=== PATIENT | male | born 1950 | race Caucasian/White ===

== ENCOUNTER → 2018-05-13 14:13 | Outpatient (CLI) | payer MEDICARE, OTHER, SELFPAY ==
[2018-05-13 16:02] LABS: AST(SGOT) 13 U/L (15-37); Alanine Aminotransfer ALT/SGPT 24 U/L (16-61); Albumin, Serum 3.8 g/dL (3.2-5.0); Alkaline Phosphatase 98 U/L (45-117); Bilirubin, Direct 0.17 mg/dL (0.00-0.30); Cholesterol 102 mg/dL (200); Globulin 3.5 g/dL (2.2-4.2); High Density Lipoprotein 34 mg/dL; Protein, Total 7.3 g/dL (6.4-8.2); Triglycerides 144 mg/dL; Very Low Density Lipoprotein 29 mg/dL (5-40)
== END ==
PROVIDERS: Nurse Practitioner Family; Family Provider Family Medicine; PCP Family Medicine; Visit Provider Internal Medicine Cardiovascular Disease
DX: R74.8 Abnormal levels of other serum enzymes (principal); E78.5 Hyperlipidemia, unspecified
CPT/HCPCS: 36415; 80061; 80076

== ENCOUNTER → 2018-09-24 14:01 | Outpatient (CLI) | payer MEDICARE, OTHER, SELFPAY ==
[2018-05-11 15:31] VITALS: BMI 42.3
[2018-09-24 16:14] LABS: Anion Gap 10 (5-15); BUN 38 mg/dL (7-18); BUN/Creat Ratio 17.8 RATIO (10-20); Calcium,Total 8.7 mg/dL (8.5-10.1); Chloride 109 mmol/L (98-107); Creatinine, Serum 2.13 mg/dL (0.70-1.30); EST Glomerular Filtration Rate 33 mL/min (>60); Est Glom Filt Rate - Afr Amer 40 mL/min (>60); Glucose 102 mg/dL (74-106); Potassium 4.4 mmol/L (3.5-5.1); Sodium Level 143 mmol/L (136-145)
== END ==
PROVIDERS: Family Provider Family Medicine; PCP Family Medicine; Visit Provider Family Medicine
DX: I10 Essential (primary) hypertension (principal)
CPT/HCPCS: 36415; 80048

== ENCOUNTER → 2019-03-25 | Outpatient (CLI) | payer MEDICARE, OTHER, SELFPAY ==
[2019-03-25 15:54] LABS: ALB/GLOB Ratio 1.2 RATIO (0.9-2.4); AST(SGOT) 11 U/L (15-37); Alanine Aminotransfer ALT/SGPT 19 U/L (16-61); Alkaline Phosphatase 77 U/L (45-117); Anion Gap 5 (5-15); BUN 33 mg/dL (7-18); BUN/Creat Ratio 17.3 RATIO (10-20); Calcium,Total 8.7 mg/dL (8.5-10.1); Chloride 109 mmol/L (98-107); Cholesterol 124 mg/dL (200); Creatinine, Serum 1.91 mg/dL (0.70-1.30); EST Glomerular Filtration Rate 37 mL/min (>60); Est Glom Filt Rate - Afr Amer 45 mL/min (>60); Globulin 3.2 g/dL (2.2-4.2); Glucose 92 mg/dL (74-106); High Density Lipoprotein 33 mg/dL; Potassium 4.5 mmol/L (3.5-5.1); Protein, Total 7.2 g/dL (6.4-8.2); Sodium Level 139 mmol/L (136-145); Triglycerides 239 mg/dL; Very Low Density Lipoprotein 48 mg/dL (5-40)
== END | disposition home or self-care (01) ==
LOC: MFPLAB 13:46
PROVIDERS: Family Provider Family Medicine; PCP Family Medicine; Referring Provider Family Medicine; Visit Provider Family Medicine
DX: I10 Essential (primary) hypertension (principal)
CPT/HCPCS: 36415; 80053; 80061

== ENCOUNTER → 2020-03-21 13:53 | Outpatient (CLI) | payer MEDICARE, OTHER, SELFPAY ==
[2019-07-01 12:49] VITALS: BMI 40.8
[2020-03-21 16:26] LABS: Anion Gap 8 (5-15); BUN 25 mg/dL (7-18); BUN/Creat Ratio 12.4 RATIO (10-20); Calcium,Total 8.9 mg/dL (8.5-10.1); Chloride 108 mmol/L (98-107); Cholesterol 128 mg/dL (200); Creatinine, Serum 2.02 mg/dL (0.70-1.30); EST Glomerular Filtration Rate 35 mL/min (>60); Est Glom Filt Rate - Afr Amer 42 mL/min (>60); Glucose 97 mg/dL (74-106); High Density Lipoprotein 31 mg/dL; Potassium 4.5 mmol/L (3.5-5.1); Sodium Level 140 mmol/L (136-145); Triglycerides 231 mg/dL; Very Low Density Lipoprotein 46 mg/dL (5-40)
--- OUTSIDE RECORDS SUMMARY | 2020-07-22 15:13 | XMS RPT_ITS | CCD ---
:1950 External Reference #:[id number] Author Organization [facility] Care Team Providers Name Role Phone Inocencia Arevalo Unavailable Unavailable Mary RN, A Unavailable Unavailable DeFinis, Y Unavailable Unavailable Mary RN, A Unavailable Unavailable Mary RN, A Unavailable Unavailable Medications Medication Name Sig Date Prescriber Location acyclovir ZOVIRAX 800 MG TABS 04-29-2017 - [facility] One tablet by mouth 05-06-2017 Group (4 [id number]) three times daily as needed ACYCLOVIR [id number] Jenna Hernandez RN ARTIFICIAL TEAR ARTIFICIAL TEARS 04-29-2017 [facility] SOLUTION 0.1-0.3 % SOLN 1 drop Group ([id number]) right eye three times a day ARTIFICIAL TEAR SOLUTION [id number] Jenna A Mary RN ARTIFICIAL TEARS 0.1-0.3 % SOLN 1 drop right 04-29-2017 [facility] (08550) eye three times a day ARTIFICIAL TEAR SOLUTION [id number] Jenna A Mary RN ARTIFICIAL TEARS 0.1-0.3 % SOLN 1 drop right 04-29-2017 [facility] (09937) eye three times a day ARTIFICIAL TEAR SOLUTION [id number] Jenna A Mary RN ARTIFICIAL TEAR SOLUTION ARTIFICIAL TEARS 0.1-0.3 % 04-29-2017 [facility] SOLN 1 drop right eye (96663 ) three times a day ARTIFICIAL TEAR SOLUTION [id number] Jenna A Mary RN ARTIFICIAL TEARS 0.1-0.3 % SOLN 1 drop right 04-29-2017 [facility] (54048) eye three times a day ARTIFICIAL TEAR SOLUTION [id number] Jennaanai Hernandez RN aspirin ASPIRIN EC 81 MG TBEC One 04-29-2017 [facility] tablet by mouth daily [facility] ([id number]) ASPIRIN [id number] Jenna Hernandez RN atorvastatin LIPITOR 10 MG TABS One 05-06-2017 [facility] tablet by mouth daily MD [facility] (91008) ATORVASTATIN CALCIUM [id number] Refugio Segovia MD methylprednisoLONE MEDROL 4 MG TBPK Take as 04-29-2017 [facility] directed Group (4 4691) METHYLPREDNISOLONE [id number] Jenna Hernandez RN MEDROL 4 MG TBPK Take as directed 04-29-2017 - 05-06-2017 [facility] (56319) METHYLPREDNISOLONE [id number] Refugio Segovia MD MEDROL 4 MG TBPK Take as directed 04-29-2017 [facility] METHYLPREDNISOLONE (4 4691) [id number] Jenna Hernandez RN MEDROL 4 MG TBPK Take as directed 04-29-2017 - 05-06-2017 [facility] (01689) METHYLPREDNISOLONE [id number] Refugio Segovia MD MEDROL 4 MG TBPK Take as directed 04-29-2017 - 05-06-2017 [facility] METHYLPREDNISOLONE (4 4691) [id number] Jenna Hernandez RN metoprolol METOPROLOL TARTRATE 50 MG 04-29-2017 [facility] TABS One tablet by mouth (44 691) twice daily METOPROLOL TARTRATE [id number] Jenna Hernandez RN MULTIPLE MULTIVITAMIN ADULT TABS 04-29-[address] [facility] VITAMINS-MINERALS One tablet by mouth twice (54668) daily MULTIPLE VITAMINS-MINERALS [id number] Jenna Hernandez RN MULTIVITAMIN ADULT TABS One tablet by mouth 04-29-2017 [facility] (03416) twice daily MULTIPLE VITAMINS-MINERALS [id number] Jenna Hernandez RN MULTIVITAMIN ADULT TABS One tablet by mouth 04-29-2017 [facility] (12236) twice daily MULTIPLE VITAMINS-MINERALS [id number] Jenna Hernandez RN MULTIPLE VITAMINS-MINERALS MULTIVITAMIN ADULT TABS One 04-29-2017 [facility] tablet by mouth twice daily Group (26204) MULTIPLE VITAMINS-MINERALS [id number] Jenna Hernandez RN MULTIVITAMIN ADULT TABS One tablet by mouth 04-29-2017 [facility] (81935) twice daily MULTIPLE VITAMINS-MINERALS [id number] Jenna Hernandez RN naproxen ALEVE 220 MG TABS 1 tablet by mouth 04-29-2017 [facility] (72978) every 12 hours PRN NAPROXEN SODIUM [id number] Jenna Hernandez RN Problems Active Problems Category Problem Name Status Date Location Chronic kidney disease Chronic renal failure Active 7 - [facility] (50720) Essential hypertension Hypertensive disorder Active [facility] (88699) Past or Other Problems Category Problem Name Status Date Location 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 - [facility] (72057) Other screening for Electrocardiogram abnormal Completed 017 - [facility] suspected conditions [facility] ( 06019) (not mental disorders or infectious disease) Unclassified High troponin I level Completed 04-29-2017 - [facility] (75282) Results Result Name Value Range Unit Interpretation Flag Date Location replaced document: [facility] ecg observati ons on 2017-05-06 EKG QRS axis -17 deg 05-06-2017 - [facility] 05-06-2017 [facility] (12538) electrocardiogram Sinus Rhythm Invalid 7 - [facility] -First degree Interpretation 2016 [facility] A-V block Code (15317) -With rate variation Linda = 236 cv = 13.BORDERLINE RHYTHM GE use only - for 414 ms Invalid 05-06-2017 - [facility] import when Interpretation [facility] terms are not Code (23897 ) otherwise specified Interpretation Sinus Rhythm 05-06-2017 - [facility] -First degree 05-06-2017 [facility] A-V block (68852) -With rate variation Linda = 236 cv = 13.BORDERLINE RHYTHM P Derry 22 deg 05-06-2017 - [facility] 05-06-2017 [facility] (22175) P wave axis, 22 deg Invalid 05-06-2017 - [facility] electrocardiogram Interpretation 017 [facility] Code (31779) AK Interval 236 ms 05-06-2017 - [facility] 05-06-2017 [facility] (73396) AK interval, 236 ms Invalid 05-06-2017 - [facility] electrocardiogram Interpretation 017 [facility] Code (60090) Pulse (Heart Rate) 73 BPM /min Invalid 05-06-2017 - [facility] Interpretation 05-06-2017 [facility] Code (49448) QRS axis, -17 deg Invalid 05-06-2017 - [facility] electrocardiogram Interpretation 017 [facility] Code (59055) QRS Duration 96 ms 05-06-2017 - [facility] 05-06-2017 [facility] (92152) QRS duration, 96 ms Invalid 05-06-2017 - [place] [facility] electro[facility]ogram Interpretation 017 [facility] Code (16419) QT Interval new path ms 05-06-2017 - [facility] 05-06-2017 [facility] (30872) QT interval, new path ms Invalid 05-06-2017 - [facility]ogram Interpretation 017 [facility] Code (65586) QTc Caprenter 414 ms 05-06-2017 - [facility] 05-06-2017 [facility] (48814) T Derry 18 deg 05-06-2017 - [facility] 05-06-2017 [facility] (93365) T wave axis, 18 deg Invalid 05-06-2017 - [facility] electrocardiogram Interpretation 017 [facility] Code (18297) office visit on 04-11-02 Documentation of Done Invalid Interpretation 05-06-2017 - [facility] current medications Code 05-06-2017 Group (11385) (procedure) Fall risk assessment No Invalid Interpretat ion 05-06-2017 - [facility] Code 05-06-2017 Group (44 691) Protein mass conc Done 05-06-2017 - [facility] 05-06-2017 Group (44 691) clinical lists update: preload on 2017-04-29 Left ventricular 65 % Invalid 04-29-2017 - [facility] Ejection fraction Interpretation Code Group (30594) Tobacco smoking Former smoker 04-29-2017 - [facility] status NHIS 04-29-2017 Group ( 18577) Tobacco use [facility] Former smoker Invalid 7 - [facility] Interpretation Code 04-29-2017 Group (39166) Vital Signs Vital Sign Description Value / Unit Date Location The following section is limited to 5 en tries per type and includes entries from the following time range: 20170506 - 2. BMI (Body Mass Index) 40.57 kg/m2 05-06-2017 - 05-06-2017 [facility] (71753) BP Diastolic 60 mm[Hg] 05-06-2017 - 05-06-2017 [facility] (69413) BP Systolic 122 mm[Hg] 05-06-2017 - 05-06-2017 [facility] (42134) Heart rate 73 /min 05-06-2017 - 05-06-2017 [facility] (80714) Height 167.64 cm 05-06-2017 - 05-06-2017 [facility] (77167) Pulse (Heart Rate) 68 /min 05-06-2017 - 05-06-2017 [facility] (52880) Respiratory Rate 20 /min 05-06-2017 - 05-06-2017 [facility] (09580) Weight 114.04 kg 05-06-2017 - 05-06-2017 [facility] (77605) Procedures Procedure Name Date Provider Location Electrocardiogram, 05-06-2017 - [facility] complete 05-06-2017 (08577) Follow Up Appt Other 05-06-2017 - [facility] 05-06-2017 (06071) Plan of Treatment Plan Description Date Location Appointment Appointment 05-06-2018 - [facility] 05-06-2018 (25827) Appointment Appointment 05-06-2017 - [facility] 05-06-2017 (91293) EKG (In office) EKG (In office) 05-06-2017 - [facility] 05-06-2017 (05336) Follow Up Appt Other Follow Up Appt Other 05-06-2017 - [facility] 05-06-2017 (34515) Nuclear stress test Nuclear stress test 05-06-2017 - [facility] -Lexiscan -Lexiscan 05-06-2017 (80806) Additional Source Comments FOR RECORDS PERTAINING TO PATIENTS WHO ARE OR HAVE BEEN ENROLLED IN A CHEMICAL DEPENDENCY/SUBSTANCE ABUSE PROGRAM, SOME INFORMATION MAY BE OMITTED. This clinical summary was aggregated from multiple sources. Caution should be exercised in using it in the provision of clinical care. This summary normalizes information from multiple sources, and as a consequence, information in this document may materially changethe coding, format and clinical context of patient data. In addition, data may be omittedin some cases. CLINICAL DECISIONS SHOULD BE BASED ON THE PRIMARY CLINICAL RECORDS. [facility] provides no warranty or guarantee of the accuracy or completeness of information in this document.
== END ==
PROVIDERS: PCP Family Medicine; Visit Provider Family Medicine
DX: I10 Essential (primary) hypertension (principal)
CPT/HCPCS: 36415; 80048; 80061

== ENCOUNTER → 2020-09-19 14:23 | Outpatient (CLI) | payer MEDICARE, OTHER, SELFPAY ==
[2019-07-01 12:49] VITALS: BMI 40.8
[2020-09-19 17:50] LABS: Absolute Lymphocyte Count 1.92 X10^3/uL (0.83-4.51); Absolute Neutrophil Count 5.6 X10^3/uL (2.0-7.7); Basophil# 0.04 X10^3/uL; Basophil% 0.5 % (0-1); Eosinophil# 0.18 X10^3/uL; Eosinophils% 2.1 % (0-5); Hematocrit 44.3 % (40-54); Hemoglobin 14.3 g/dL (13.0-16.5); Lymphocyte # 1.92 X10^3/ul (4.0); Lymphocyte % 22.6 % (19-41); Mean Corp Hgb Conc 32.3 g/dL (32-36); Mean Corpuscular Volume 102.3 fL (80-94); Mean Platelet Vol. 10.4 fl (6.2-12.0); Monocyte# 0.76 X10^3/uL; Monocyte% 8.9 % (0-10); NRBC Flagged by Analyzer 0 % (0-5); Neutrophil # 5.57 X10^3/uL (2.7-7.7); Neutrophil % 65.4 % (47-70); Platelet Count 216 K/mm3 (150-450); RBC Distribution Width CV 12.2 % (11.6-14.6); RBC Distribution Width SD 46.2 fl (35.1-43.9); Red Blood Count 4.33 M/mm3 (4.6-6.2); White Blood Count 8.5 K/mm3 (4.4-11.0)
[2020-09-19 18:41] LABS: ALB/GLOB Ratio 1.1 RATIO (0.9-2.4); AST(SGOT) 10 U/L (15-37); Alanine Aminotransfer ALT/SGPT 23 U/L (16-61); Albumin, Serum 3.9 g/dL (3.2-5.0); Alkaline Phosphatase 82 U/L (45-117); Anion Gap 5 (5-15); BUN 35 mg/dL (7-18); BUN/Creat Ratio 17.1 RATIO (10-20); Chloride 108 mmol/L (98-107); Cholesterol 121 mg/dL (200); Creatinine, Serum 2.05 mg/dL (0.70-1.30); EST Glomerular Filtration Rate 34 mL/min (>60); Est Glom Filt Rate - Afr Amer 41 mL/min (>60); Globulin 3.7 g/dL (2.2-4.2); Glucose 97 mg/dL (74-106); High Density Lipoprotein 30 mg/dL; Potassium 4.4 mmol/L (3.5-5.1); Protein, Total 7.6 g/dL (6.4-8.2); Sodium Level 140 mmol/L (136-145); Thyroid Stim Hormone (TSH) 1.07 uIU/mL (0.358-3.74); Triglycerides 311 mg/dL; Very Low Density Lipoprotein 62 mg/dL (5-40)
== END ==
PROVIDERS: PCP Family Medicine; Referring Provider Family Medicine; Visit Provider Family Medicine
DX: R53.83 Other fatigue (principal); R11.0 Nausea; I10 Essential (primary) hypertension
CPT/HCPCS: 36415; 80053; 80061; 84403; 84443; 85025

== ENCOUNTER → 2020-10-03 11:35 | Outpatient (CLI) | payer MEDICARE, OTHER, SELFPAY ==
[2019-07-01 12:49] VITALS: BMI 40.8
== END ==
PROVIDERS: PCP Family Medicine; Visit Provider Family Medicine
DX: R79.89 Other specified abnormal findings of blood chemistry (principal)
CPT/HCPCS: 36415; 84403

== ENCOUNTER → 2022-11-13 | Outpatient (CLI) | payer MEDICARE, OTHER, SELFPAY ==
--- NOTE | 2022-11-13 11:22 | RAD_ITS ---
STUDY: X-RAY - RIGHT SHOULDER REASON FOR EXAM: Male, 72 years old. Pain. TECHNIQUE: 4 view(s) of the shoulder. COMPARISON: None. FINDINGS: Osteopenia. Mild arthrosis of the glenohumeral joint. Mild arthrosis of the AC joint. Normal acromion. Normal humeral head and visualized proximal humerus. The soft tissue structures are unremarkable. Normal visualized pulmonary apex. RAD/Shoulder min 2 Views IMPRESSION: Osteopenia with mild arthrosis of the glenohumeral and acromioclavicular joints. No acute abnormality or erosive changes. Electronically Signed: Dino Gonzalez, at 13:25 EST ,
--- NOTE | 2022-11-13 11:22 | RAD_ITS ---
STUDY: X-RAY - LEFT SHOULDER REASON FOR EXAM: Male, 72 years old. Pain. TECHNIQUE: 4 view(s) of the shoulder. COMPARISON: None. FINDINGS: Osteopenia. Mild arthrosis of the glenohumeral joint. Mild arthrosis of the AC joint. Normal acromion. Normal humeral head and visualized proximal humerus. The soft tissue structures are unremarkable. Normal visualized pulmonary apex. RAD/Shoulder min 2 Views IMPRESSION: Osteopenia with mild arthrosis of the glenohumeral and acromioclavicular joints. No acute abnormality or erosive changes. Electronically Signed: Dino Gonzalez, at 13:25 EST ,
== END | disposition home or self-care (01) ==
LOC: MTRAD 11:20
PROVIDERS: PCP Family Medicine; Referring Provider Family Medicine; Visit Provider Family Medicine
DX: M25.511 Pain in right shoulder (principal); M25.512 Pain in left shoulder
CPT/HCPCS: 73030

== ENCOUNTER 2022-12-24 14:30 | Outpatient (RCR) | payer MEDICARE, OTHER, SELFPAY ==
--- NOTE | 2022-11-24 16:08 | HP.PTEVAL_ITS ---
Patient's Visit Information FABIAN WOODRUFF is a 72 year old M referred to Physical Therapy by Dr. Bari Francisco MD with a diagnosis of Bilateral Shoulder OA. Date of Evaluation: 11/24/22 Physical Therapist: Elham Romero DPT - Visit Plan Frequency: 2x /Week Duration: 4 Weeks Plan: Focus on posture and scapular s/s- under 90 degrees. HEP Given IE: Posture, Scapular Retractions, Corner Stretch, Bilateral ER with GTB - Subjective Patient reports shoulder pain for years- right is worse than the left. He reports that its getting worse and he can't sleep on them and they wake him up. He is right hand dominate. 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 Pain is located in the AC joint- No radiating pain. No N/T in the fingers. Worst: 7-8/10 Agg: reaching out to or pushing off on a chair. Eases: trying not to move it. Best: 0/10. Describes the pain as sharp and shooting. He has had x-rays which showed OA no MRI. He gave him some medication to help decrease the inflammation but did not do an injection and sent him to PT. He does not do any exercises for his shoulder. No neck pain, blurred vision or dizziness. Sleep: disturbed- side sleeper. He is more sedentary- his has RA so he does a lot of housework to help out. Hobby: jewelry- is hard to do and increases pain. PMHx: HTN Meds: 2 BP pills and a statin. - Objective Posture: FH, RS- can correct with tactile cues but does not maintain. Gait: decreased arm swing and trunk rotation. Palpation: not tender to touch but does have very tight musculature throughout his cervical spine and thoracic spine. ROM: Cervical Spine: WFL in all planes but reports tightness in all ROM, Shoulder: WFL in all planes but slow and painful arc with flexion and abduction bilateral, Elbow/Wrist/Hand: WFL. 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: 60 bilateral, Elbow: Left: 4+/5, Right: 4/5, Shoulder Isometric: left: 4+/5, Right: 4-/5 bilateral in a neutral position - Special Tests R Shoulder Drop Sign - IS Test: Positive R Shoulder Empty Can - SS: Positive R Shoulder Belly Press - SupScap: Positive R Shoulder Neer - Impingement: Positive R Shoulder Juan Juan M - Impingement: Positive L Shoulder Drop Sign - IS Test: Positive L Shoulder Empty Can - SS: Positive L Shoulder Belly Press - SupScap: Positive L Shoulder Neer - Impingement: Positive L Shoulder Juan Juan M - Impingement: Positive - Balance/Special Test Scores Quick DASH Score: 45.4525 - Goals Goal 1:: Patient will be I with HEP and progression Goal Time Frame: 4-6 Weeks Goal 2:: Patient will maintain proper posture t/o tx session to demo increased scap s/s Goal Time Frame: 4-6 Weeks Goal 3:: Patient will demo full AROM without pain Goal Time Frame: 4-6 Weeks Goal 4:: Patient will report 80% improvement Goal Time Frame: 4-6 Weeks - Rehabilitation Potential Physical Therapy Diagnosis: Patient presents with hypomobility- he has decreased ROM, UE and scapular s/s and muscular endurance leading to poor posture and increased discomfort with ADL's. Rehabilitation Potential: Good - Anticipated Interventions Patient/Client Instruction: Educate patient on: Benefits of Fitness Program Therapeutic Exercise to Include: Strength training, Endurance training, Coordination, Body mechanics, Postural training, Flexibilty training, Neuromotor development, Passive ROM, Active ROM, Dynamic Lumbar Stabilization, Scapular Strength/Stabilization For the Purpose of:: To improve muscle performance and motor function TENS: Yes Cryotherapy (ice pack, ice massage): Yes Thermo therapy (hot pack): Yes Ultrasound (thermal/non thermal): Yes Thank you for the opportunity to evaluate your patient. For Medicare and Medicare HMO plans, please review the plan of care and approve it. It will need to be FAXED BACK to us at [phone] for Medicare purposes. For Medicare only, by signing this I certify the plan of care. Please let me know if there are questions or concerns regarding this plan of care. Physician Signature: Date:
--- NOTE | 2022-12-24 14:44 | HP.PTDCSUM ---
It has been my pleasure to treat FABIAN WOODRUFF referred by Dr. Bari Francisco MD, with the diagnosis of Bilateral Shoulder OA for a total of 10 visit(s). Discharge Date: Please see the following information for a summary of their discharge status. Subjective: Patient reports that he has not seen any improvement in the shoulders- more soreness from exercises. Sleep is still disturbed. He used the sweeper and it made the right one really bad because he used it. He has not had any x-rays on his neck but in the last few days his right hand has been a little tingly. Right shoulder Pain Intensity (Out of 10): Unrated % Improvement: 0 Objective/Function: No significant changes since IE: Posture: FH, RS- can correct with tactile cues but does not maintain. Gait: decreased arm swing and trunk rotation. Palpation: not tender to touch but does have very tight musculature throughout his cervical spine and thoracic spine. ROM: Cervical Spine: WFL in all planes but reports tightness in all ROM, Shoulder: WFL in all planes but slow and painful arc with flexion and abduction bilateral, Elbow/Wrist/Hand: WFL. Strength: Consumer Services Advisor: 60 bilateral, Elbow: Left: 4+/5, Right: 4/5, Shoulder Isometric: left: 4+/5, Right: 4-/5 bilateral in a neutral position. - Special Tests. R Shoulder Drop Sign - IS Test: Positive. R Shoulder Empty Can - SS: Positive. R Shoulder Belly Press - SupScap: Positive. R Shoulder Neer - Impingement: Positive. R Shoulder Juan Juan M - Impingement: Positive. L Shoulder Drop Sign - IS Test: Positive. L Shoulder Empty Can - SS: Positive. L Shoulder Belly Press - SupScap: Positive. L Shoulder Neer - Impingement: Positive. L Shoulder Juan Juan M - Impingement: Positive Goal 1:: Patient will be I with HEP and progression Goal Progress: Goal Met Goal 2:: Patient will maintain proper posture t/o tx session to demo increased scap s/s Goal Progress: Not Progressing Goal 3:: Patient will demo full AROM without pain Goal Progress: Not Progressing Goal 4:: Patient will report 80% improvement Goal Progress: Not Progressing Plan: 12/24/22: Discharge- return to MD for further evaluation. Focus on posture and scapular s/s- under 90 degrees. If there are questions or concerns regarding this patient's physical therapy, please feel free to call me at [phone]. Thank you for the referral of this patient. Sincerely, Elham Romero, PURNIMAT Balance/Gait/Functional tests - Balance/Special Test Scores Quick DASH Score: 50.0000
== END 2022-12-24 14:58 | disposition home or self-care (01) ==
LOC: PT 14:30
PROVIDERS: PCP Family Medicine; Referring Provider Family Medicine; Visit Provider Family Medicine
DX: M19.011 Primary osteoarthritis, right shoulder (principal); M19.012 Primary osteoarthritis, left shoulder
CPT/HCPCS: 97035; 97110; 97162; 97164

== ENCOUNTER → 2023-02-04 | Outpatient (CLI) | payer MEDICARE, OTHER, SELFPAY ==
--- NOTE | 2023-02-04 12:45 | MRI_ITS ---
INDICATION: RT SHOULDER PAIN, LIMITED R.O.M, HX PREV SURGERY 30 YEARS AGO EXAMINATION: MRI - RIGHT MR Shoulder W/O Contrast TECHNIQUE: Multiplanar and multisequence MR images of the right shoulder without contrast. IV Contrast Dosage and Agent: None. COMPARISON: November 13, 2022 shoulder radiograph. FINDINGS: BONE: No fracture or abnormal bone marrow signal. ACROMIOCLAVICULAR JOINT: Mild acromioclavicular joint degenerative osseous proliferation with small joint effusion and capsular thickening. Inferior projecting osteophytes exert mild mass effect on the supraspinatus myotendinous junction. Coracoclavicular ligaments are intact. SUBACROMIAL-SUBDELTOID SPACE: Small bursal fluid. GLENOHUMERAL JOINT: Mild diffuse chondral thinning without full thickness loss.. No joint effusion. No rotator interval edema. ROTATOR CUFF: Mild distal supraspinatus articular surface fraying with mild increased fluid signal. Focal 1 mm medial posterior footplate infraspinatus tendon tear is suggested.. There is no cuff muscle atrophy. LABRUM: Anterior degenerative labral changes, with limited evaluation on non-arthrogram exam. BICEPS TENDON: The extra-articular biceps tendon is in the bicipital groove. The intra-articular biceps tendon is normal. MRI/Upper Ext Joint Only(Routine) IMPRESSION: Subacromial subdeltoid bursitis. Articular surface supraspinatus tendon fraying and suggestion of 1mm medial posterior footplate infraspinatus insertion tear. Acromioclavicular osteoarthritis with mass effect on the supraspinatus myotendinous junction. Electronically Signed: Hai Garcia MD at 7:53 EDT ,
== END | disposition home or self-care (01) ==
LOC: MRI 12:28
PROVIDERS: PCP Family Medicine; Referring Provider Family Medicine; Visit Provider Family Medicine
DX: M25.511 Pain in right shoulder (principal); M25.512 Pain in left shoulder
CPT/HCPCS: 73221

== ENCOUNTER → 2023-03-31 | Outpatient (CLI) | payer MEDICARE, OTHER, SELFPAY ==
--- NOTE | 2023-03-31 13:55 | EKG12_ITS ---
Test Reason : PRE-OP Blood Pressure : / mmHG Vent. Rate : 075 BPM Atrial Rate : 075 BPM P-R Int : 228 ms QRS Dur : 078 ms QT Int : 390 ms P-R-T Axes : 023 -22 043 degrees QTc Int : 435 ms Sinus rhythm with 1st degree A-V block Otherwise normal ECG Confirmed by ILIANA LEIVA, MICHAEL ([id number]), photography editor KENNY COBOS ([id number]) on 04/01/2023 1:09:56 PM Referred By: Carrillo Wilson Confirmed By:MICHAEL BARRIENTOS MD
== END | disposition home or self-care (01) ==
LOC: PSN 13:54
PROVIDERS: PCP Family Medicine; Referring Provider Student in an Organized Health Care Education/Training Program; Visit Provider Student in an Organized Health Care Education/Training Program
DX: Z01.811 Encounter for preprocedural respiratory examination (principal)
CPT/HCPCS: 93005

== ENCOUNTER → 2023-05-20 | Outpatient (CLI) | payer MEDICARE, OTHER, SELFPAY ==
[2023-05-20 12:24] LABS: Absolute Lymphocyte Count 1.98 X10^3/uL (0.83-4.51); Absolute Neutrophil Count 4.2 X10^3/uL (2.0-7.7); Basophil# 0.04 X10^3/uL; Basophil% 0.6 % (0-1); Eosinophils% 2.8 % (0-5); Hematocrit 41.8 % (40-54); Hemoglobin 13.9 g/dL (13.0-16.5); Lymphocyte # 1.98 X10^3/ul (0.83-4.51); Mean Corp Hgb Conc 33.3 g/dL (32-36); Mean Corpuscular Hgb 34.9 pg (27.0-32.0); Mean Platelet Vol. 9.8 fl (6.2-12.0); Monocyte# 0.64 X10^3/uL; NRBC Flagged by Analyzer 0 % (0-5); Neutrophil # 4.18 X10^3/uL (2.7-7.7); Platelet Count 191 K/mm3 (150-450); RBC Distribution Width CV 12.1 % (11.6-14.6); Red Blood Count 3.98 M/mm3 (4.6-6.2); White Blood Count 7.1 K/mm3 (4.4-11.0)
[2023-05-20 12:59] LABS: ALB/GLOB Ratio 1.1 RATIO (0.9-2.4); AST(SGOT) 10 U/L (15-37); Alanine Aminotransfer ALT/SGPT 17 U/L (16-61); Albumin, Serum 3.7 g/dL (3.2-5.0); Alkaline Phosphatase 59 U/L (45-117); Anion Gap 3 (5-15); BUN 29 mg/dL (7-18); Chloride 113 mmol/L (98-107); Creatinine, Serum 1.93 mg/dL (0.70-1.30); EST Glomerular Filtration Rate 36 mL/min (>60); Est Glom Filt Rate - Afr Amer 44 mL/min (>60); Globulin 3.5 g/dL (2.2-4.2); Glucose 116 mg/dL (74-106); Potassium 4.2 mmol/L (3.5-5.1); Protein, Total 7.2 g/dL (6.4-8.2); Sodium Level 141 mmol/L (136-145)
== END | disposition home or self-care (01) ==
LOC: MTLAB 10:35
PROVIDERS: PCP Family Medicine; Referring Provider Family Medicine; Visit Provider Family Medicine
DX: Z01.818 Encounter for other preprocedural examination (principal)
CPT/HCPCS: 36415; 80053; 85025

== ENCOUNTER 2024-11-01 12:13 | Inpatient (IN) | payer MEDICARE, OTHER, SELFPAY ==
[2024-11-01] VITALS (22 sets, daily range): BP systolic 130–210; BP diastolic 64–144; PULSE 103–140; RESP 20–37; TEMP 36.4–41.1; O2SAT 88–100; BMI 39.6; BMI 21.9; BMI 38.2
--- NOTE | 2024-11-01 12:40 | EKG12_ITS ---
Test Reason : N/V Blood Pressure : */* mmHG Vent. Rate : 110 BPM Atrial Rate : 110 BPM P-R Int : 196 ms QRS Dur : 82 ms QT Int : 356 ms P-R-T Axes : 42 -17 60 degrees QTcB Int : 481 ms Poor data quality, interpretation may be adversely affected Sinus tachycardia with Premature ventricular complexes or Fusion complexes Otherwise normal ECG Confirmed by MAURILIO LEIVA, REJI ([id number]), order editor KENNY COBOS ([id number]) on 11/03/2024 6:37:35 AM Referred By: Confirmed By: REJI THORPE MD
[2024-11-01] MEDS: 0.9% Normal Saline (1000mL) 1,000 ML 999 ML IV ×2 (12:56→15:27)
--- NOTE | 2024-11-01 13:15 | RAD_ITS ---
PROCEDURE: CHEST PA AND LATERAL REASON FOR EXAM: Nausea and vomiting. Weakness diarrhea. TECHNIQUE: Frontal and lateral views of the chest. COMPARISON: None. FINDINGS: Mild cardiomegaly. The mediastinal contour is unremarkable. There are granulomatous calcifications. The lungs are otherwise clear. Degenerative changes are identified within the thoracic spine. Increased kyphosis. RAD/Chest PA and Lateral IMPRESSION: NO ACUTE FINDINGS. Reading Location: [facility]
[2024-11-01 13:18] LABS: Prothrombin Time (Protime)PT. 13.8 SECONDS (11.7-14.9)
[2024-11-01 13:19] LABS: Partial Thromboplast Time 28.7 Seconds (24.1-36.2)
[2024-11-01 13:26] LABS: Mucous, Urine 0 SEEN /hpf (<or=2+)
[2024-11-01 13:35] LABS: Absolute Lymphocyte Count 1.42 X10^3/uL (0.83-4.51); Absolute Neutrophil Count 10.8 X10^3/uL (2.0-7.7); Basophil# 0.04 X10^3/uL; Basophil% 0.3 % (0-1); Eosinophil# 0.05 X10^3/uL; Eosinophils% 0.4 % (0-5); Hematocrit 41.7 % (40-54); Hemoglobin 14.3 g/dL (13.0-16.5); Lymphocyte # 1.42 X10^3/ul (0.83-4.51); Lymphocyte % 10.5 % (19-41); Mean Corp Hgb Conc 34.3 g/dL (32-36); Mean Corpuscular Volume 99.3 fL (80-94); Mean Platelet Vol. 10.4 fl (6.2-12.0); Monocyte# 1.22 X10^3/uL; NRBC Flagged by Analyzer 0 % (0-5); Neutrophil # 10.75 X10^3/uL (2.7-7.7); Neutrophil % 79.1 % (47-70); Platelet Count 138 K/mm3 (150-450); RBC Distribution Width CV 12.5 % (11.6-14.6); RBC Distribution Width SD 45.6 fl (35.1-43.9); White Blood Count 13.6 K/mm3 (4.4-11.0)
[2024-11-01 13:44] LABS: Color, Urine Yellow (Yellow); Glucose, Dipstick Normal (Normal); Ketone-Dipstick Negative (Negative); Leukocyte Esterase-Dipstick 500 /ul (Negative); Nitrite-Dipstick Positive (Negative); Occult Blood-Urine 250 /ul (Negative); Protein-Dipstick 100 mg/dl (Negative); Specific Gravity, Urine 1.025 (1.002-1.030); Urine Bilirubin Dipstick Negative (Negative); Urine Clarity Sl. Cloudy (Clear); Urine Urobilinogen Normal (Normal)
[2024-11-01 13:55] LABS: Red Blood Cells-Urine 0-5 SEEN /hpf (0-5); White Blood Cells 25-50 SEEN /hpf (0-5)
[2024-11-01 13:56] LABS: Bacteria 3+ /hpf (None Seen); Squamous Epithelial Cells - UA 0-5 SEEN /hpf (0-5)
[2024-11-01 13:58] LABS: Renal Epithelial Cells 0-5 SEEN /hpf (0-5)
[2024-11-01 14:00] LABS: Lactic Acid 2.3 mmol/L (0.4-1.9)
[2024-11-01 14:00] LABS: ALB/GLOB Ratio 0.9 RATIO (0.9-2.4); AST(SGOT) 67 U/L (15-37); Alanine Aminotransfer ALT/SGPT 37 U/L (16-61); Albumin, Serum 3.6 g/dL (3.2-5.0); Alkaline Phosphatase 95 U/L (45-117); Anion Gap 12 (5-15); BUN 42 mg/dL (7-18); BUN/Creat Ratio 14.1 RATIO (10-20); Calcium,Total 9.1 mg/dL (8.5-10.1); Chloride 104 mmol/L (98-107); Creatinine, Serum 2.97 mg/dL (0.70-1.30); EST Glomerular Filtration Rate 22 mL/min (>60); Est Glom Filt Rate - Afr Amer 27 mL/min (>60); Globulin 4.2 g/dL (2.2-4.2); Glucose 154 mg/dL (74-106); Potassium 3.6 mmol/L (3.5-5.1); Protein, Total 7.8 g/dL (6.4-8.2); Sodium Level 134 mmol/L (136-145); Troponin-I HS 166 pg/mL (3.0-78.0)
[2024-11-01 14:25] LABS: BNP,B-Type NATRIURETIC PEPTIDE 51.5 pg/mL (0-100)
--- NOTE | 2024-11-01 14:28 | EX.ED.DYSGE1 ---
HPI History of Present Illness Chief Complaint: Nausea/Vomiting/Diarrhea Narrative Narrative: Patient is a 74-year-old male with a past medical history of hypertension, hyperlipidemia, chronic kidney disease who presented to the emergency department with a chief complaint of generalized not feeling well. Patient states that for the past several weeks he has not been feeling well and notes that his is ill as well. He states that he followed up with his primary care physician today and they sent him here for further evaluation management. [facility] Medical History (Updated 11/01/24 @ 16:[address] Dejuan Chester DO) Obesity Quiroz's palsy Hyperlipidemia Essential (primary) hypertension Elevated troponin (2017) Chronic renal insufficiency Blurred vision, left eye Facial droop Home Medications ?Medication ?Instructions ?Recorded ?Last Taken ?Type metoprolol tartrate 50 mg tablet 50 mg PO BID 11/23/14 04/12/17 07:00 History multivitamin 1 tab PO DAILY 04/12/17 04/12/17 07:00 History naproxen sodium 220 mg tablet 220 mg PO Q12H PRN PRN Pain 04/12/17 04/12/17 07:00 History aspirin 81 mg chewable tablet 81 mg PO DAILY@0800 ##30 04/14/17 Unknown Rx dextran 70-hypromellose 0.1 %-0.3 1 drp RIGHT EYE TID ##1 04/14/17 Unknown Rx % eye drops lisinopril 10 1 tab PO DAILY #90 tabs 07/01/19 Unknown History mg-hydrochlorothiazide 12.5 mg tablet atorvastatin 10 mg tablet 10 mg PO QDAY #90 tabs 01/29/24 Unknown Rx Allergy/AdvReac Type Severity Reaction Status Date / Time No Known Allergies Allergy Verified 07/01/19 12:49 Family History Father Heart disease Mother Heart disease Brother Hypertension Surgical History Hx of transurethral resection of prostate Hx of knee surgery H/O shoulder surgery Social History Smoking Status: Former smoker alcohol intake: never caffeine: Yes Type: carbonated beverages ROS ROS ED ROS Narrative Constitutional: Complains of chills and diffuse bodyaches denies any fevers Eyes: Denies change in vision double vision blurry vision Cardiovascular: Denies chest pain or palpitations Respiratory: Complains of cough and shortness of breath Abdomen: Denies abdominal pain nausea vomiting states that he does have diarrhea : Denies any urinary symptoms Neurological: Denies any numbness, weakness, tingling Musculoskeletal: Complains of diffuse bodyaches Skin: Denies any rashes or lesions EXAM Physical Exam Narrative Exam Narrative: General: Patient was lying in bed rest comfortably did not appear to be not feeling well overall Head: Atraumatic, normocephalic Eyes: PERRL bilaterally, EOMI bilaterally, no conjunctival injection noted Neck: Soft, supple, trachea midline Cardiovascular: Patient tachycardic with a regular rhythm no murmurs gallops rubs noted Respiratory: Patient has end expiratory wheezing noted bilaterally on exam Abdomen: Soft, nondistended, no tenderness palpation Extremities: +4/5 strength noted in the bilateral upper and lower extremities, radial pulses +2/4 in the bilateral per extremities, no pedal edema on exam Neurological: Patient following commands knew that he was at [facility] year is 2024 Skin: Warm, dry, intact Const Vital Signs: 11/01/24 12:14 11/01/24 12:43 11/01/24 13:41 Temperature 97.5 F L Temperature Source Temporal Pulse Rate 115 H 112 H Respiratory Rate 24 H 20 H Respiratory Pattern Blood Pressure 210/77 H 158/67 H Blood Pressure Mean 121 97 Pulse Ox 97 95 97 Oxygen Delivery Method Room Air Room Air Room Air 11/01/24 15:00 11/01/24 15:00 11/01/24 15:26 Temperature 98.4 F Temperature Source Oral Pulse Rate 103 H 103 H 123 H Respiratory Rate 22 H 23 H Respiratory Pattern Tachypnea Blood Pressure 169/64 H 169/64 H Blood Pressure Mean 99 99 Pulse Ox 94 Oxygen Delivery Method Room Air MDM MDM MDM Narrative Medical decision making narrative: Patient is a 74-year-old male who presents to the emerged part with chief complaint of cough, shortness of breath, generalized not feeling well for the past several weeks. On the differential diagnose includes but not limited to pneumonia, upper respiratory infection secondary viral etiology, ACS. Once workup is obtained and reviewed he will be reevaluated. Patient will be given IV fluids for hydration will be given DuoNebs. Patient's primary care physician's office called in and notified me that he was coming in and noted that his heart rate was elevated and he tested positive for influenza A. They note that he was overall not feeling well therefore they sent him here for the valuation management. Patient CBC was significant for leukocytosis of 13,000, hemoglobin is 14.3, plate count was noted be 138. Patient's sodium was 134, potassium was 3.6, creatinine was elevated 2.97 which is elevated from his baseline which appears to be around 1.9. Patient's lactic acid was elevated 2.3. Patient AST and ALT were 6737. Patient's troponin was elevated to 166 a delta troponin pending. Patient's EKG reviewed and independently interpreted by myself showed sinus tachycardia with a rate of [address] changes noted. Patient urinalysis reviewed showed positive nitrates 500 leukocyte esterase with 3+ bacteria. Patient was given a gram Rocephin at 1411. He is not having urinary symptoms this was sent for culture. Patient's chest x-ray reviewed and showed no acute findings. On reevaluation the patient he is still tachycardic at 123 with some tachypnea therefore I do believe he will warrant admission to the hospital for further evaluation management. Spoke with hospitalist Dr. Green who accept patient for admission. Patient was notified he is agreeable this plan all question concerns answered. Lab Data Labs: Laboratory Results - last 24 hr 11/01/24 11/01/24 11/01/24 12:39 12:39 12:50 WBC Cancelled Corrected WBC Cancelled RBC Cancelled Hgb Cancelled Hct Cancelled MCV Cancelled MCH Cancelled MCHC Cancelled RDW Std Deviation Cancelled RDW Coeff of Whitney Cancelled Plt Count Cancelled MPV Cancelled Immature Gran % (Auto) Cancelled Neut % (Auto) Cancelled Lymph % (Auto) Cancelled [place] % (Auto) Cancelled Eos % (Auto) Cancelled Baso % (Auto) Cancelled Absolute Neuts (auto) Cancelled Absolute Lymphs (auto) Cancelled Total Counted Cancelled Neutrophils % (Manual) Cancelled Band Neutrophils % Cancelled Lymphocytes % (Manual) Cancelled Monocytes % (Manual) Cancelled Eosinophils % (Manual) Cancelled Basophils % (Manual) Cancelled Metamyelocytes % Cancelled Myelocytes % Cancelled Promyelocytes % Cancelled Blast Cells % Cancelled Plasma Cell % (Manual) Cancelled Other Cells % Cancelled Nucleated RBC % Cancelled Nucleated RBCs/100 WBC Cancelled Differential Comment Cancelled Diff Path Review Cancelled Hypersegmented Neuts Cancelled Atypical Lymphocytes Cancelled Reactive Lymphocytes Cancelled Smudge Cells Cancelled Toxic Granulation Cancelled Toxic Vacuolation Cancelled Dohle Bodies Cancelled Tejal Rods Cancelled Platelet Estimate Cancelled Plt Morphology Comment Cancelled RBC Morphology Cancelled Cancelled Polychromasia Cancelled Hypochromasia Cancelled Basophilic Stippling Cancelled Anisocytosis Cancelled Microcytosis Cancelled Macrocytosis Cancelled Spherocytes Cancelled Sickle Cells Cancelled Target Cells Cancelled Tear Drop Cells Cancelled Ovalocytes Cancelled Stomatocytes Cancelled Mccabe-[place] Bodies Cancelled [place] Cells Cancelled Bite Cells Cancelled Crenated Cell Cancelled Acanthocytes (Spur) Cancelled Rouleaux Cancelled Schistocytes Cancelled PT 13.8 INR 1.0 APTT 28.7 Sodium Potassium Chloride Carbon Dioxide Anion Gap BUN Creatinine Est GFR (MDRD) Af Amer Est GFR (MDRD) Non-Af BUN/Creatinine Ratio Glucose Lactic Acid 2.3 H* Calcium Total Bilirubin AST ALT Alkaline Phosphatase Troponin I High Sens B-Natriuretic Peptide Total Protein Albumin Globulin Albumin/Globulin Ratio Urine Color Urine Clarity Urine pH Ur Specific [place] Urine Protein Urine Glucose (UA) Urine Ketones Urine Occult Blood Urine Nitrite Urine Bilirubin Urine Urobilinogen Ur Leukocyte Esterase Urine RBC Urine WBC Ur Squamous Epith Cells Ur Renal Epithelial Cell Urine Bacteria Urine Mucus 11/01/24 13:00 WBC 13.6 H Corrected WBC RBC 4.20 L Hgb 14.3 Hct 41.7 MCV 99.3 H MCH 34.0 H MCHC 34.3 RDW Std Deviation 45.6 H RDW Coeff of Whitney 12.5 Plt Count 138 L MPV 10.4 Immature Gran % (Auto) 0.700 Neut % (Auto) 79.1 H Lymph % (Auto) 10.5 L [place] % (Auto) 9.0 Eos % (Auto) 0.4 Baso % (Auto) 0.3 Absolute Neuts (auto) 10.8 H Absolute Lymphs (auto) 1.42 Total Counted Neutrophils % (Manual) Band Neutrophils % Lymphocytes % (Manual) Monocytes % (Manual) Eosinophils % (Manual) Basophils % (Manual) Metamyelocytes % Myelocytes % Promyelocytes % Blast Cells % Plasma Cell % (Manual) Other Cells % Nucleated RBC % 0 Nucleated RBCs/100 WBC Differential Comment Diff Path Review Hypersegmented Neuts Atypical Lymphocytes Reactive Lymphocytes Smudge Cells Toxic Granulation Toxic Vacuolation Dohle Bodies Tejal Rods Platelet Estimate Plt Morphology Comment RBC Morphology Polychromasia Hypochromasia Basophilic Stippling Anisocytosis Microcytosis Macrocytosis Spherocytes Sickle Cells Target Cells Tear Drop Cells Ovalocytes Stomatocytes Mccabe-[place] Bodies [place] Cells Bite Cells Crenated Cell Acanthocytes (Spur) Rouleaux Schistocytes PT INR APTT Sodium 134 L Potassium 3.6 Chloride 104 Carbon Dioxide 19.0 L Anion Gap 12 BUN 42 H Creatinine 2.97 H Est GFR (MDRD) Af Amer 27 L Est GFR (MDRD) Non-Af 22 L BUN/Creatinine Ratio 14.1 Glucose 154 H Lactic Acid Calcium 9.1 Total Bilirubin 0.50 AST 67 H ALT 37 Alkaline Phosphatase 95 Troponin I High Sens 166 H* B-Natriuretic Peptide 51.5 Total Protein 7.8 Albumin 3.6 Globulin 4.2 Albumin/Globulin Ratio 0.9 Urine Color Yellow Urine Clarity Sl. Cloudy Urine pH 5.0 Ur Specific [place] 1.025 Urine Protein 100 H Urine Glucose (UA) Normal Urine Ketones Negative Urine Occult Blood 250 H Urine Nitrite Positive H Urine Bilirubin Negative Urine Urobilinogen Normal Ur Leukocyte Esterase 500 H Urine RBC 0-5 SEEN Urine WBC 25-50 SEEN Ur Squamous Epith Cells 0-5 SEEN Ur Renal Epithelial Cell 0-5 SEEN Urine Bacteria 3+ Urine Mucus 0 SEEN Radiography Diagnostic Testing: Clinical Impression(s) from Imaging Studies Chest X-Ray 11/01/24 13:15 IMPRESSION: NO ACUTE FINDINGS. Reading Location: [facility] Discharge Plan Triage Chief Complaint: Nausea/Vomiting/Diarrhea ED Provider: Dejuan Chester Dx/Rx/DC Orders Clinical Impression: Influenza A, Tachycardia, Acidosis, lactic, Type 2 acute myocardial infarction Prescriptions: No Action lisinopril-hydrochlorothiazide 10-12.5 mg tablet 1 tab PO DAILY Qty: 90 metoprolol tartrate 50 MG tablet 50 mg PO BID Patient Comments: high blood pressure multivitamin 1 EACH tablet 1 tab PO DAILY Patient Comments: vitamin naproxen sodium 220 MG tablet 220 mg PO Q12H PRN PRN (Reason: Pain) Patient Comments: joint pain aspirin 81 MG tablet,chewable 81 mg PO DAILY@0800 Qty: 30 0RF Patient Comments: preventative for heart/stroke dextran 70-hypromellose 1 DROP bottle 1 drp RIGHT EYE TID Qty: 1 1RF Patient Comments: dry eye atorvastatin 10 mg tablet 10 mg PO QDAY Qty: 90 3RF Primary Care Provider: Bari Francisco Referrals: Bari Francisco MD [Primary Care Provider] - Print Language: Malaysian Disposition Disposition: Acute Care Hospital [facility]
[2024-11-01] MEDS: Ceftriaxone 1 GM/50 ML BAG IV (14:29)
[2024-11-01] MEDS: Ipratropium/Albuterol Sulfate 3 ML AMPUL.NEB INHALATION ×3 (15:00→17:57)
--- NOTE | 2024-11-01 16:22 | HP.PCM.HOS_ITS ---
HPI - General General Date of Admission: 11/01/24 Date of Service: 11/01/24 Chief Complaint: URI symptoms and fatigue HPI Narrative FABIAN WOODRUFF, is a 74 M who presented to [facility] ED on 11/01/2024 with worsening URI symptoms and fatigue. Patient lives at home with his . States he has not felt well now for about the past 2 weeks. He has had fairly persistent URI symptoms and has become more fatigued, and his oral intake has been fairly poor. Denies any fevers or chills. Denies any chest pain or discomfort. Has had a fairly persistent cough with greenish sputum production. Has been taking [id number] medications at home with only mild relief. Patient was found to be positive for influenza A in the ED. He was hypertensive and had sinus tachycardia to the 110s in the ED but was breathing comfortably on room air at rest. Chest x-ray was unremarkable. Labs notable for WBC count 13, platelets 138, sodium 134, bicarb 19, creatinine 2.97 (baseline around 1.9), lactate 2.3. Troponin trend 166-187 in the ED. BNP normal. UA showed positive nitrites, 500 leukocyte esterase, 3+ bacteria. Given his flu infection with possible UTI and concern for sepsis, hospitalist was contacted for admission. I saw the patient at bedside in the ED. Patient was fatigued appearing and had several short coughing episodes during my encounter with him. Otherwise he was sitting up comfortably in bed and answering questions appropriately for me. He reported feeling generalized fatigue and malaise. Denies any nausea or vomiting but has admitted with appetite with poor p.o. intake. Denies any diarrhea. Denies any fevers or chills. Denies any lower extremity pain or swelling. Has been taking his own medications as prescribed. No other acute concerns currently. About an hour after arrival to the floor, was notified by nursing staff that patient was febrile to 100.7F, appeared pale and had mild increased work of breathing with respiration rate in the low 30s. His lactate also worsened to 3.5 despite IV fluid resuscitation. Patient notably was given 3 L of IV fluids total and nursing noted some crackles on exam. I evaluated the patient at bedside and he appeared slightly more fatigued and pale on exam from the ED but not significantly worse. He was tachycardic to the 130s at that time. ABG was obtained and showed pH 7.37, pCO2 26. Patient continued to worsen and has fever up to 104F and tachycardia up to the 140s to low 150s, so decision was transfer patient up to the ICU. D-dimer was ordered and was elevated, and given worsening tachycardia with worsening oxygenation and increasing respiratory rate, patient was empirically started on heparin drip for presumed PE. Notably CTA chest could not be obtained due to LORENZO on CKD. Patient was also empirically started on vancomycin and Zosyn. Blood cultures and urine culture were obtained in the ED. [facility] Medical History (Updated 11/01/24 @ 21:[address] Sammy Green DO) Obesity Quiroz's palsy Hyperlipidemia Essential (primary) hypertension Elevated troponin (2017) Chronic renal insufficiency Blurred vision, left eye Facial droop Home Medications ?Medication ?Instructions ?Recorded ?Last Taken ?Type multivitamin 1 tab PO DAILY 04/12/17 04/12/17 07:00 History naproxen sodium 220 mg tablet 220 mg PO Q12H PRN PRN Pain 04/12/17 04/12/17 07:00 History aspirin 81 mg chewable tablet 81 mg PO DAILY@0800 ##30 04/14/17 Unknown Rx lisinopril 10 1 tab PO DAILY #90 tabs 07/01/19 Unknown History mg-hydrochlorothiazide 12.5 mg tablet atorvastatin 10 mg tablet 10 mg PO QDAY #90 tabs 01/29/24 Unknown Rx meloxicam 15 mg tablet 15 mg PO DAILY PRN pain 11/01/24 Unknown History metoprolol tartrate 25 mg tablet 25 mg PO BID 11/01/24 Unknown History Allergy/AdvReac Type Severity Reaction Status Date / Time No Known Allergies Allergy Verified 07/01/19 12:49 Family History Father Heart disease Mother Heart disease Brother Hypertension Surgical History Hx of transurethral resection of prostate Hx of knee surgery H/O shoulder surgery Social History Smoking Status: Former smoker alcohol intake: never caffeine: Yes Type: carbonated beverages ROS Constitutional Constitutional: Reports fatigue, malaise and weakness; Denies chills or fever(s) Eyes Eyes: Denies change in vision Cardiovascular Cardiovascular: Denies chest pain, lightheadedness, rapid heart rate or syncope Respiratory/Chest Respiratory/Chest: Reports cough, dyspnea and productive cough; Denies shortness of breath at rest, shortness of breath with exertion or wheezing Gastrointestinal Gastrointestinal: Denies abdominal pain, constipation, diarrhea, nausea or vomiting Genitourinary Genitourinary: Denies dysuria Musculoskeletal Musculoskeletal: Denies arthralgias or myalgias Neurologic Neurologic: Denies dizziness or headache(s) Vital Signs Vital Signs Vital Signs: 11/01/24 12:14 11/01/24 12:43 11/01/24 13:41 Temperature 97.5 F L Temperature Source Temporal Pulse Rate 115 H 112 H Respiratory Rate 24 H 20 H Respiratory Pattern Blood Pressure 210/77 H 158/67 H Blood Pressure Mean 121 97 Pulse Ox 97 95 97 Oxygen Delivery Method Room Air Room Air Room Air 11/01/24 15:00 11/01/24 15:00 11/01/24 15:26 Temperature 98.4 F Temperature Source Oral Pulse Rate 103 H 103 H 123 H Respiratory Rate 22 H 23 H Respiratory Pattern Tachypnea Blood Pressure 169/64 H 169/64 H Blood Pressure Mean 99 99 Pulse Ox 94 Oxygen Delivery Method Room Air Weight Weight: 111.4 kg Body Mass Index (BMI) 39.6 Physical Exam Const alert, oriented x3 and no apparent distress Constitutional Narrative: Elderly male, class II obesity, fatigued but otherwise sitting back comfortably in bed, answer questions appropriately, in no acute distress. General Appearance: cooperative and comfortable HEENT normocephalic, head/scalp atraumatic, hearing grossly normal bilaterally and nasal mucous membranes and turbinates normal HEENT Narrative: Dry mucous membranes. Eyes PERRL, EOMs intact bilaterally and conjunctivae normal Neck full ROM Chest inspection of chest normal Resp normal respiratory effort and no use of accessory muscles Resp Narrative: Breathing comfortably on room air at rest. Mild crackles noted in upper lungs bilaterally. No wheezing noted. Cardio no murmurs and peripheral pulses 2+ throughout Cardio Narrative: Tachycardic, regular rhythm. GI normal to inspection, nondistended, normoactive bowel sounds, soft to palpation, non-tender and non-distended Back/Spine normal ROM Extremity normal to inspection, full ROM and no pedal edema Skin no rashes or lesions noted Neuro moves all extremities and no focal motor deficits Speech: speech normal Psych mental status grossly normal Results Lab / Micro Data 11/01/24 13:00 11/01/24 13:00 Labs: Laboratory Results - last 24 hr 11/01/24 12:39: WBC Cancelled, Corrected WBC Cancelled, RBC Cancelled, Hgb Cancelled, Hct Cancelled, MCV Cancelled, MCH Cancelled, MCHC Cancelled, RDW Std Deviation Cancelled, RDW Coeff of Whitney Cancelled, Plt Count Cancelled, MPV Cancelled, Immature Gran % (Auto) Cancelled, Neut % (Auto) Cancelled, Lymph % (Auto) Cancelled, [place] % (Auto) Cancelled, Eos % (Auto) Cancelled, Baso % (Auto) Cancelled, Absolute Neuts (auto) Cancelled, Absolute Lymphs (auto) Cancelled, Total Counted Cancelled, Neutrophils % (Manual) Cancelled, Band Neutrophils % Cancelled, Lymphocytes % (Manual) Cancelled, Monocytes % (Manual) Cancelled, Eosinophils % (Manual) Cancelled, Basophils % (Manual) Cancelled, Metamyelocytes % Cancelled, Myelocytes % Cancelled, Promyelocytes % Cancelled, Blast Cells % Cancelled, Plasma Cell % (Manual) Cancelled, Other Cells % Cancelled, Nucleated RBC % Cancelled, Nucleated RBCs/100 WBC Cancelled, Differential Comment Cancelled, Diff Path Review Cancelled, Hypersegmented Neuts Cancelled, Atypical Lymphocytes Cancelled, Reactive Lymphocytes Cancelled, Smudge Cells Cancelled, Toxic Granulation Cancelled, Toxic Vacuolation Cancelled, Dohle Bodies Cancelled, Tejal Rods Cancelled, Platelet Estimate Cancelled, Plt Morphology Comment Cancelled, RBC Morphology Cancelled 11/01/24 12:39: RBC Morphology Cancelled, Polychromasia Cancelled, Hypochromasia Cancelled, Basophilic Stippling Cancelled, Anisocytosis Cancelled, Microcytosis Cancelled, Macrocytosis Cancelled, Spherocytes Cancelled, Sickle Cells Cancelled, Target Cells Cancelled, Tear Drop Cells Cancelled, Ovalocytes Cancelled, Stomatocytes Cancelled, [place] Bodies Cancelled, Jb Cells Cancelled, Bite Cells Cancelled, Crenated Cell Cancelled, Acanthocytes (Spur) Cancelled, Rouleaux Cancelled, Schistocytes Cancelled 11/01/24 12:50: PT 13.8, INR 1.0, APTT 28.7, Lactic Acid 2.3 H* 11/01/24 13:00: WBC 13.6 H, RBC 4.20 L, Hgb 14.3, Hct 41.7, MCV 99.3 H, MCH 34.0 H, MCHC 34.3, RDW Std Deviation 45.6 H, RDW Coeff of Whitney 12.5, Plt Count 138 L, MPV 10.4, Immature Gran % (Auto) 0.700, Neut % (Auto) 79.1 H, Lymph % (Auto) 10.5 L, [place] % (Auto) 9.0, Eos % (Auto) 0.4, Baso % (Auto) 0.3, Absolute Neuts (auto) 10.8 H, Absolute Lymphs (auto) 1.42, Nucleated RBC % 0, Sodium 134 L, Potassium 3.6, Chloride 104, Carbon Dioxide 19.0 L, Anion Gap 12, BUN 42 H, C reatinine 2.97 H, Est GFR (MDRD) Af Amer 27 L, Est GFR (MDRD) Non-Af 22 L, BUN/Creatinine Ratio 14.1, Glucose 154 H, Calcium 9.1, Total Bilirubin 0.50, AST 67 H, ALT 37, Alkaline Phosphatase 95, Troponin I High Sens 166 H*, B- Natriuretic Peptide 51.5, Total Protein 7.8, Albumin 3.6, Globulin 4.2, Albumin/Globulin Ratio 0.9, Urine Color Yellow, Urine Clarity Sl. Cloudy, Urine pH 5.0, Ur Specific [place] 1.025, Urine Protein 100 H, Urine Glucose (UA) Normal, Urine Ketones Negative, Urine Occult Blood 250 H, Urine Nitrite Positive H, Urine Bilirubin Negative, Urine Urobilinogen Normal, Ur Leukocyte Esterase 500 H, Urine RBC 0-5 SEEN, Urine WBC 25-50 SEEN, Ur Squamous Epith Cells 0-5 SEEN, Ur Renal Epithelial Cell 0-5 SEEN, Urine Bacteria 3+, Urine Mucus 0 SEEN Micro: Microbiology 11/01/24 13:06 Mucosa - Nose SARS-CoV-2, Influenza & RSV (PCR) - Final Influenzae A Imaging Radiology Impression Chest X-Ray 11/01/24 13:15 IMPRESSION: NO ACUTE FINDINGS. Reading Location: [facility] Assessment & Plan Assessment/Plan (1) Sepsis: (2) Influenza A: (3) Acute hypoxic respiratory failure: (4) Type 2 acute myocardial infarction: PLAN: Plan Patient is a 74-year-old male who presented [facility] ED on 11/01/2024 with worsening URI symptoms and fatigue. 1. Sepsis without shock ? Admit under inpatient status to the ICU. Most likely source appears to be urinary versus pulmonary. Met sepsis criteria with LORENZO, elevated lactate in setting of urinary versus pulmonary source. Initial lactate 2.3, worsened to 3.5 despite IV fluid resuscitation. May in part be due to increased work of breathing from respiratory failure as noted below. Blood pressure remained stable. Treating with IV vancomycin and Zosyn for now. Follow-up blood cultures and urine culture. 2. Acute hypoxic respiratory failure with concern for PE ? Does not wear oxygen at baseline. Requiring up to 8 L nasal cannula on admit to maintain appropriate oxygen saturations. D-dimer elevated and significant tachycardia noted; unable to obtain CTA chest due to LORENZO on CKD. Will briefly treat for PE for now with heparin drip. VQ scan and echo ordered. Wean supplemental oxygen as able. 3. Influenza A infection ? Positive for influenza A in the ED. Chest x-ray unremarkable. 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 Treating with Tamiflu with renal dosing. DuoNebs ordered as needed for upper airway inflammation. 4. Acute cystitis ? UA on admit showed positive nitrites, 500 leukocyte esterase, 3+ bacteria. Urine culture pending. Given ceftriaxone in the ED but given worsening status and sepsis as above, broadened to vancomycin and Zosyn. 5. NSTEMI type II ? Troponin trend 166 > 187 on admit. No EKG changes noted. No chest pain noted. BNP normal. Presumed demand ischemia secondary to sepsis versus possible PE as noted above. Echo ordered as noted above. 6. LORENZO on CKD 3b ? Creatinine 2.97 on admit, baseline around 1.9. Suspected prerenal due to dehydration but cannot rule out some degree of obstructive etiology. Renal/bladder ultrasound completed, read pending. Given heavy IV fluid resuscitation in the ED as noted above, follow-up a.m. BMP and monitor urine output. Chronic medical conditions: ? Class II obesity: BMI 38 on admit., Case hospital course, care and prognosis. ? Hypertension: Continue home Lopressor. Holding home lisinopril?hydrochlorothiazide due to LORENZO. ? Hyperlipidemia: Continue home statin. ? Osteoarthritis: Treating with Tylenol and ibuprofen as needed. DVT prophylaxis: Not indicated, on heparin drip CODE STATUS: Full code, verified Expected disposition: TBD Total clinical time spent by myself addressing the patient's medical issues, reviewing all the data, and collaborating with patient's care team: 75 minutes. Sepsis Attestation Sepsis Alert: Yes Sepsis Attestation: Agree w/Sepsis Date exam was performed: 11/01/24 Time exam was performed: 16:00 Possible Source of Sepsis: Pulmonary and Genitourinary Sepsis Organ Dysfunction Criteria Present: Creatinine > 2.0 mg/dL and Lactic Acid > 2 mmol/L Charges/Coding Visit Charges Inpatient E&M: 44756 Init Hosp L3
[2024-11-01 16:28] LABS: Troponin-I HS 187 pg/mL (3.0-78.0)
[2024-11-01 16:58] LABS: Reflex Lactate? Y
--- NOTE | 2024-11-01 17:35 | US_ITS ---
PROCEDURE: KIDNEY AND BLADDER REASON FOR EXAM: Acute kidney infection superimposed on chronic kidney disease. TECHNIQUE: Realtime grayscale and color flow imaging was performed with routine image documentation. COMPARISON: None. FINDINGS: Normal renal sizes, parenchymal thicknesses, and echotextures. No hydronephrosis. Right renal cyst, inferior pole measuring 3.9 x 3.7 x 4.1 cm. RIGHT Kidney Size: 11.8 x 4.0 x 5.8 cm. Cortical Thickness (if discernible): 1.6 cm (>6mm is normal) LEFT Kidney Size: 10.7 x 5.0 x 5.6 cm. Cortical Thickness (if discernible): 1.9 cm (>6mm is normal) Urinary bladder Pre voiding volume: 127 mL. Wall thickness: 0.3 cm. No masses. Ureteral jets: Right nonvisualized. Left nonvisualized. US/Kidney and Bladder IMPRESSION: Right renal cysts, inferior pole. No hydronephrosis. Bilateral ureteral jets were not visualized on this study. Reading Location: [facility]
[2024-11-01 18:04] LABS: Lactic Acid 3.5 mmol/L (0.4-1.9)
--- NOTE | 2024-11-01 18:08 | ECHOCS_ITS ---
Version 2 Reason For Study: CHF Procedure This was a 2D Doppler, Color Flow transthoracic echocardiogram. The study was technically difficult. Contrast injection was performed. Patient on BIPAP. Exam performed portable in ICU/CCU. Left Ventricle Normal LV size. The estimated ejection fraction is 55 %. No evidence for diastolic dysfunction. No regional wall motion abnormalities noted. Right Ventricle Normal RV size. Normal systolic function. Atria The left and right atria are normal. No doppler evidence for ASD. Mitral Valve There is no mitral valve stenosis. No mitral valve insufficiency. Tricuspid Valve There is no tricuspid stenosis. Unable to estimate RV systolic pressure due to inadequate jet, pulmonary artery pressure probably normal. Aortic Valve Trisinus/trileaflet aortic valve. There is no aortic stenosis. No aortic valve insufficiency. Pulmonic Valve There is no pulmonic valvular stenosis. No pulmonic valve insufficiency. Great Vessels Normal aortic root. Pericardium/Pleural Trivial pericardial effusion. Medication Diluted definity 4ml given slow IV push to enhance endocardial definition. MMode/2D Measurements & Calculations LVIDd: 4.7 cm IVSd: 1.1 cm Ao root diam: 3.0 cm LVIDs: 3.6 cm LVPWd: 1.2 cm RVDd: 4.3 cm FS: 22.3 % LAV(MOD-bp): 37.7 ml LVAd ap4: 26.3 cm2 SV(MOD-sp4): 32.6 ml LAV(MOD-bp) Indexed: 17.5 ml/m2 LVLd ap4: 7.3 cm SI(MOD-sp4): 15.2 ml/m2 LAV(MOD-sp2): 36.4 ml EDV(MOD-sp4): 79.7 ml LAV(MOD-sp4): 39.7 ml EDV(sp4-el): 80.9 ml LVAs ap4: 18.9 cm2 LVLs ap4: 6.5 cm ESV(MOD-sp4): 47.1 ml ESV(sp4-el): 46.6 ml EF(MOD-sp4): 40.9 % EF(sp4-el): 42.4 % SV(sp4-el): 34.3 ml LA A4 area: 15.6 cm2 LA dimension(2D): 4.0 cm RA A4 area: 16.4 cm2 TAPSE: 2.4 cm Time Measurements MV dec time: 0.22 sec Doppler Measurements & Calculations MV E max torsten: 52.0 cm/sec Lat Peak E' Torsten: 8.5 cm/sec Med Peak E' Torsten: 9.6 cm/sec MV A max torsten: 73.5 cm/sec E/E' lat: 6.1 E/E' med: 5.4 MV E/A: 0.71 MV V2 max: 92.3 cm/sec MV P1/2t max torsten: 58.2 cm/sec Ao V2 max: 111.1 cm/sec MV max P.4 mmHg MV P1/2t: 70.3 msec Ao max P.9 mmHg MV V2 mean: 46.3 cm/sec MV dec slope: 242.2 cm/sec2 Ao V2 mean: 75.5 cm/sec MV mean P.0 mmHg MVA(P1/2t): 3.1 cm2 Ao mean P.6 mmHg MV V2 VTI: 15.7 cm Ao V2 VTI: 19.2 cm AV (velocity ratio): 0.76 LV V1 max: 90.2 cm/sec PA V2 max: 81.6 cm/sec LV V1 max P.3 mmHg LV V1 mean P.6 mmHg LV V1 mean: 59.0 cm/sec LV V1 VTI: 14.6 cm ECHO/Echo Complete W/ Contrast Interpretation Summary The estimated ejection fraction is 55 %. No evidence for diastolic dysfunction. Trivial pericardial effusion. Ordering Physician: Sammy Green Performed By: Milind Martinez RCS
[2024-11-01] MEDS: Furosemide 40 MG/4 ML Vial IV (18:17)
[2024-11-01] MEDS: Oseltamivir Phosphate 30 MG Capsule PO (18:41)
[2024-11-01] MEDS: Acetaminophen 325 MG Tablet 650 MG PO (18:41)
[2024-11-01 18:47] LABS: Allen Test Positive; Base Excess -10 mmol/L (-2 to +2); Bicarbonate 14.9 mmol/L (22-26); Blood Gas Specimen Type ART; Mode Not entered; O2 Delivery Device Cannula; PO2 84 mmHG (75-100); SITE R Radial; SO2 96 % (95-99); Total Carbon Dioxide 16 mmol/L; pCO2 26.1 mmHg (35-45); pH 7.37 (7.35-7.45)
--- NOTE | 2024-11-01 18:53 | NURSING ---
notified of transfer to ICU.
--- NOTE | 2024-11-01 19:06 | VDLE_ITS ---
Reason For Study: Shortness of Breath RIGHT LEFT GSV is normal. GSV is normal. CFV is compressible, spontaneous, phasic, CFV is compressible, spontaneous, phasic, competent and demonstrates normal competent, and demonstrates normal augmentation. augmentation. FV is compressible, spontaneous, phasic, FV is compressible, spontaneous, phasic, competent and demonstrates normal competent and demonstrates normal augmentation. augmentation. POP V is compressible, spontaneous, phasic, POP V is compressible, spontaneous, phasic, competent and demonstrates normal competent and demonstrates normal augmentation. augmentation. T/P Trunk is compressible. T/P Trunk is compressible. PTV is compressible. PTV is compressible. RT PerV is compressible. LT PerV is compressible. Procedure This is a venous duplex using B-mode, color flow and spectral Doppler. Exam performed portable in patient room. The exam was diagnostic. A preliminary report was called and/or faxed to ICU enterprise architect. VL/Venous Duplex US - Abdoulaye Extrem Interpretation Summary Deep veins of the lower extremities are bilaterally patent and compressible seg mentally. There is no evidence of deep vein thrombosis on either side. Valvular competence appears in tact within the proximal deep venous systems bilaterally. The great saphenous veins appear bila terally patent and compressible segmentally. Ordering Physician: Sammy Green Referring Physician: Bari Francisco Performed By: Jason Godinez RVT
[2024-11-01] MEDS: 0.9% Saline Lock 10 ML Syringe IV ×3 (19:30→21:49)
[2024-11-01] MEDS: HEPARIN/D5w 25,000 UNITS 25,000 UNITS/250 ML IV.SOLN. 10 UNITS CONT INF (19:31)
[2024-11-01] MEDS: Heparin Injection (Vial) 5,000 UNIT/ML VIAL 4500 UNIT IV (19:32)
[2024-11-01] MEDS: Metoprolol Tartrate 25 MG Tablet PO (19:55)
[2024-11-01 19:56] LABS: D-Dimer Quantitative (DVT/PE) 1.53 FEU/ug/m (0.27-0.49)
[2024-11-01] MEDS: Ibuprofen 400 MG Tablet PO (19:57)
--- NOTE | 2024-11-01 20:05 | NURSING ---
Weight noted to be charted wrong on PCU prior to pt being transferred up to ICU. Heparin gtt was ordered and started based on PCU weight, which was considerably less than pt actual weight. Pt weighed in ICU bed, weight updated in computer. This RN spoke with pharmacist and pt will need 3500 more units of a heparin bolus to make 8000 un total (pt already received 4500), and then the heparin drip will need increased to 1500 un/hr. Pharmacist will make these changes to the orders.
[2024-11-01] MEDS: Heparin Injection (Vial) 5,000 UNIT/ML VIAL 3500 UNIT IV (20:09)
[2024-11-01] MEDS: Ondansetron 4 MG/2 ML Vial IV (20:32)
[2024-11-01] MEDS: Vancomycin HCl 2,000 MG in 0.9% Normal Saline (500mL Bag) 500 ML 250 MG IV (21:48)
[2024-11-01 22:15] LABS: Procalcitonin 4.25 ng/mL (0.00-0.09)
--- NOTE | 2024-11-01 23:38 | PCM.RX.CS ---
Consult Antibiotic Management Pharmacy has been consulted to manage selected antibiotic: Vancomycin Type of Intervention Type of Consult: New start Labs Labs: Sodium 134 mmol/L (136-145) L 11/01/24 13:00 Potassium 3.6 mmol/L (3.5-5.1) 11/01/24 13:00 Chloride 104 mmol/L (98-107) 11/01/24 13:00 Carbon Dioxide 19.0 mmol/L (21.0-32.0) L 11/01/24 13:00 Anion Gap 12 (5-15) 11/01/24 13:00 BUN 42 mg/dL (7-18) H 11/01/24 13:00 Creatinine 2.97 mg/dL (0.70-1.30) H 11/01/24 13:00 Est GFR (MDRD) Af Amer 27 mL/min (>60) L 11/01/24 13:00 Est GFR (MDRD) Non-Af 22 mL/min (>60) L 11/01/24 13:00 BUN/Creatinine Ratio 14.1 RATIO (10-20) 11/01/24 13:00 Glucose 154 mg/dL (74-106) H 11/01/24 13:00 Microbiology Microbiology: Microbiology 11/01/24 13:06 Mucosa - Nose SARS-CoV-2, Influenza & RSV (PCR) - Final Influenzae A Dosing Weight Weight used for dosin.8 kg Estimated Creatinine Clearance Estimated Creatinine Clearance: 24.7 Goal Trough Goal Trough: 15-20 mcg/mL Pharmacy Plan for Drug Dosing Pharmacy Plan for Drug Dosing: Pharmacy Service will continue to monitor and adjust dosing as required. SCr 2.97 NOT ON DIALYSIS. START 200MG LOADING DOSE AND 1GM Q24H. DRAW TROUGH PRIOR TO 3RD DOSE Follow-Up Labs Follow-Up Labs: Trough: Vancomycin Date/Time Labs Ordered Labs to be done on [date and time ordered]: 11/03 @ 8173
[2024-11-02] VITALS (33 sets, daily range): BP systolic 87–144; BP diastolic 45–106; PULSE 63–115; RESP 12–34; TEMP 37.1–38.7; O2SAT 89–100; BMI 38.1
[2024-11-02] MEDS: Piperacil/Tazobactam 3.375 GM in 0.9% Normal Saline (50mL MB+) 50 ML IV ×4 (00:22→21:43)
[2024-11-02] MEDS: Acetaminophen 325 MG Tablet 650 MG PO (00:45)
--- NOTE | 2024-11-02 00:52 | RAD_ITS ---
PROCEDURE: CHEST 1 VIEW (PORTABLE) REASON FOR EXAM: Shortness of breath. Wheezing. TECHNIQUE: AP upright portable chest. COMPARISON: 11/01/2024 chest PA and lateral FINDINGS: Stable heart and mediastinum. Aorta is atherosclerotic and mildly tortuous. The lungs are clear. Blunting of the left lateral costophrenic angle. Bones and soft tissues unremarkable Cardiac monitoring leads overlie the chest wall. RAD/Chest 1 View (Portable) IMPRESSION: Blunting of the lateral costophrenic angle due to pleural fluid and or thickeni ng. No active cardiopulmonary disease. Reading Location: [facility]
[2024-11-02] MEDS: Ipratropium/Albuterol Sulfate 3 ML AMPUL.NEB INHALATION ×2 (01:13→19:37)
--- NOTE | 2024-11-02 01:51 | CPS ---
ABG order, ran as venous gas
[2024-11-02 01:54] LABS: Blood Gas Specimen Type VEN; Comment 12 8; O2 Delivery Device BiPAP; RR 12; SITE R Radial; VBG BASE EXCESS -10 mmol/L (-1.0-3.5); VBG Bicarbonate 17 mmol/L (22-26); VBG PO2 22 mmHg (25-40); VBG SO2 31 % (50-70); VBG TCO2 18 mmol/L (23-33); VBG pCO2 36.2 mmHg (41-51); VBG pH 7.27 (7.32-7.42)
[2024-11-02 03:05] LABS: Partial Thromboplast Time 226.2 Seconds (24.1-36.2)
[2024-11-02 03:14] LABS: Hematocrit 37.5 % (40-54); Hemoglobin 12.7 g/dL (13.0-16.5); Mean Corp Hgb Conc 33.9 g/dL (32-36); Mean Corpuscular Hgb 33.8 pg (27.0-32.0); Mean Corpuscular Volume 99.7 fL (80-94); Mean Platelet Vol. 10.8 fl (6.2-12.0); Platelet Count 100 K/mm3 (150-450); RBC Distribution Width CV 12.7 % (11.6-14.6); RBC Distribution Width SD 46.5 fl (35.1-43.9); Red Blood Count 3.76 M/mm3 (4.6-6.2); White Blood Count 17.2 K/mm3 (4.4-11.0)
[2024-11-02 03:27] LABS: Anion Gap 17 (5-15); BUN 42 mg/dL (7-18); BUN/Creat Ratio 12.9 RATIO (10-20); Chloride 108 mmol/L (98-107); Creatinine, Serum 3.25 mg/dL (0.70-1.30); EST Glomerular Filtration Rate 20 mL/min (>60); Est Glom Filt Rate - Afr Amer 24 mL/min (>60); Estimated Creatinine Clearance 22.61 ml/min; Glucose 162 mg/dL (74-106); Potassium 3.5 mmol/L (3.5-5.1); Sodium Level 140 mmol/L (136-145)
[2024-11-02 03:29] LABS: Magnesium 1.6 mg/dL (1.6-2.6); Phosphorus 1.2 mg/dL (2.5-4.9)
[2024-11-02] MEDS: 0.9% Saline Lock 10 ML Syringe IV ×3 (04:23→06:53)
[2024-11-02] MEDS: Magnesium Sulfate 2 GM in Dextrose 5%-Water (100mL Bag) 100 ML IV (04:23)
[2024-11-02] MEDS: Potassium Phosphate 40 MM in 0.9% Normal Saline (500mL Bag) 500 ML 62.5 MM IV (04:24)
[2024-11-02] MEDS: Nystatin Powder 15gm Bottle 1 APPLIC TOPICAL ×3 (05:21→21:43)
[2024-11-02] MEDS: Ondansetron 4 MG/2 ML Vial IV (05:30)
[2024-11-02] MEDS: Furosemide 40 MG/4 ML Vial IV (06:52)
--- NOTE | 2024-11-02 08:15 | EX.PCM.CONCC ---
Assessment & Plan Assessment/Plan (1) Sepsis: (2) Acute hypoxic respiratory failure: (3) Type 2 acute myocardial infarction: (4) Influenza A: PLAN: Plan RECOMMENDATIONS: 1. Attempt to wean from PAP therapy to nasal cannula oxygen as tolerated. 2. Continue Tamiflu as ordered. 3. Continue empiric antibiotics. 4. Weight-based heparin infusion, pending completion of lower extremity Dopplers. 5. Echocardiogram is pending. IMPRESSIONS: 1. Sepsis The patient presented to the hospital with sepsis due to suspected UTI with influenza A infection, with acute sepsis related organ dysfunction as evidenced by acute respiratory failure requiring noninvasive positive pressure ventilatory support, lactic acidemia and acute kidney injury. The patient did receive sepsis fluids, but remains otherwise hemodynamically stable. Continue supportive care with empiric antibiotics, pending culture results. 2. Acute on chronic kidney disease Potentially prerenal in etiology in the setting #1. Renal ultrasound was largely unremarkable. Continue current supportive measures while avoiding nephrotoxic medications. Consultation to nephrology is pending. 3. Acute hypoxemic respiratory failure Most likely secondary to influenza A infection. While the patient was initially placed on BiPAP therapy, he has since been weaned to nasal cannula oxygen this morning. D-dimer was only mildly elevated. Therefore, lower suspicion for underlying PE. VQ scan will be discontinued. Lower extremity Doppler study has already been completed. Accordingly, we will continue weight-based heparin infusion until results of Doppler study are known. 4. NSTEMI Most likely secondary to demand ischemia in the setting of sepsis and respiratory failure. Echocardiogram is currently pending. 5. History of obesity/hypertension/hyperlipidemia/osteoarthritis Complicates care, management, recovery and prognosis. Continue home medications as indicated. Encourage incentive spirometer use and mobilize patient as tolerated. This note was generated with [employer] dictation software. It may contain incorrect words, spelling, and punctuation that were not noted in checking the note before signing. HPI Consult Data Date of Consult: 11/02/24 HPI Narrative Reason for Consultation: Acute respiratory failure, sepsis HPI Narrative: The patient is a 74-year-old male, with a history as outlined below, who presented to the emergency department on November 01 with generalized malaise and shortness of breath. The patient has no pre-existing lung conditions. He does not utilize supplemental oxygen at his baseline. The patient is a non-smoker. He denied a history of venous thromboembolic disease. The patient did report that his has been ill with similar symptoms as well. The patient stated that he has been experiencing the symptoms for approximately 1 week. The patient has never been diagnosed with obstructive sleep apnea. On presentation to the emergency department, the patient was initially documented to be afebrile but was notably tachycardic, tachypneic and hypertensive. Laboratory evaluation revealed a white blood cell count of 13,000. Platelet count was low at 138,000. Coagulation profile was within normal limits. D-dimer was mildly elevated at 1.5. Arterial blood gas obtained on nasal cannula oxygen demonstrated a pH of 7.37 with a pCO2 of 26 and pO2 of 84. Chemistry profile was notable for a bicarbonate of 19 and creatinine of 2.97. Lactate was elevated at 2.3. Troponin was increased at 166. Urine analysis was positive for nitrites, leukocyte esterase and 3+ urine bacteria. Blood and urine cultures were collected. The patient ultimately tested positive for influenza A. Initial chest x-ray demonstrated no acute cardiopulmonary process. Renal ultrasound demonstrated no evidence of hydronephrosis. It appears that the patient was ordered to receive supplemental IV fluid hydration and was started on antimicrobials and Tamiflu. He was briefly admitted to the progressive care unit, but then ultimately transferred to the ICU over concerns for decompensated respiratory failure. This morning, the patient remains on BiPAP. White blood cell count is elevated at 17,000. Platelet count is dropped to 100,000. Creatinine has increased to 3.25 with a bicarbonate of 15. The patient's last surface echocardiogram was completed in 2017 and revealed normal systolic function. [facility] Medical History (Updated 11/02/24 @ 11:[address] Mary Strauss MD) Obesity Quiroz's palsy Hyperlipidemia Essential (primary) hypertension Elevated troponin (2017) Chronic renal insufficiency Blurred vision, left eye Facial droop Home Medications ?Medication ?Instructions ?Recorded ?Last Taken ?Type multivitamin 1 tab PO DAILY 04/12/17 04/12/17 07:00 History naproxen sodium 220 mg tablet 220 mg PO Q12H PRN PRN Pain 04/12/17 04/12/17 07:00 History aspirin 81 mg chewable tablet 81 mg PO DAILY@0800 ##30 04/14/17 Unknown Rx lisinopril 10 1 tab PO DAILY #90 tabs 07/01/19 Unknown History mg-hydrochlorothiazide 12.5 mg tablet atorvastatin 10 mg tablet 10 mg PO QDAY #90 tabs 01/29/24 Unknown Rx meloxicam 15 mg tablet 15 mg PO DAILY PRN pain 11/01/24 Unknown History metoprolol tartrate 25 mg tablet 25 mg PO BID 11/01/24 Unknown History Allergy/AdvReac Type Severity Reaction Status Date / Time No Known Allergies Allergy Verified 07/01/19 12:49 Family History Father Heart disease Mother Heart disease Brother Hypertension Surgical History Hx of transurethral resection of prostate Hx of knee surgery H/O shoulder surgery Social History Smoking Status: Former smoker alcohol intake: never caffeine: Yes Type: carbonated beverages ROS ROS Narrative 10 systems were reviewed with pertinent positives as noted in the HPI above. Physical Exam Const alert and oriented x3 Constitutional Narrative: Currently resting comfortably in bed with BiPAP in place. General Appearance: ill appearing HEENT normocephalic and head/scalp atraumatic Eyes PERRL, EOMs intact bilaterally and conjunctivae normal Neck supple General: trachea midline Chest inspection of chest normal Resp Effort and Inspection: tachypneic Auscultation: diminished lung sounds; Negative for rales, rhonchi or wheezes Cardio regular rate and regular rhythm GI normal to inspection, nondistended, normoactive bowel sounds Extremity no clubbing, cyanosis or edema Skin no rashes or lesions noted Neuro CN's II-XII intact bilaterally, moves all extremities and no focal motor deficits Psych Mood & Affect: flat affect Lab / Micro Data 11/02/24 03:07 11/02/24 03:07 Labs: Laboratory Results - last 24 hr 11/01/24 12:39: WBC Cancelled, Corrected WBC Cancelled, RBC Cancelled, Hgb Cancelled, Hct Cancelled, MCV Cancelled, MCH Cancelled, MCHC Cancelled, RDW Std Deviation Cancelled, RDW Coeff of Whitney Cancelled, Plt Count Cancelled, MPV Cancelled, Immature Gran % (Auto) Cancelled, Neut % (Auto) Cancelled, Lymph % (Auto) Cancelled, Hood % (Auto) Cancelled, Eos % (Auto) Cancelled, Baso % (Auto) Cancelled, Absolute Neuts (auto) Cancelled, Absolute Lymphs (auto) Cancelled, Total Counted Cancelled, Neutrophils % (Manual) Cancelled, Band Neutrophils % Cancelled, Lymphocytes % (Manual) Cancelled, Monocytes % (Manual) Cancelled, Eosinophils % (Manual) Cancelled, Basophils % (Manual) Cancelled, Metamyelocytes % Cancelled, Myelocytes % Cancelled, Promyelocytes % Cancelled, Blast Cells % Cancelled, Plasma Cell % (Manual) Cancelled, Other Cells % Cancelled, Nucleated RBC % Cancelled, Nucleated RBCs/100 WBC Cancelled, Differential Comment Cancelled, Diff Path Review Cancelled, Hypersegmented Neuts Cancelled, Atypical Lymphocytes Cancelled, Reactive Lymphocytes Cancelled, Smudge Cells Cancelled, Toxic Granulation Cancelled, Toxic Vacuolation Cancelled, Dohle Bodies Cancelled, Tejal Rods Cancelled, Platelet Estimate Cancelled, Plt Morphology Comment Cancelled, RBC Morphology Cancelled 11/01/24 12:39: RBC Morphology Cancelled, Polychromasia Cancelled, Hypochromasia Cancelled, Basophilic Stippling Cancelled, Anisocytosis Cancelled, Microcytosis Cancelled, Macrocytosis Cancelled, Spherocytes Cancelled, Sickle Cells Cancelled, Target Cells Cancelled, Tear Drop Cells Cancelled, Ovalocytes Cancelled, Stomatocytes Cancelled, Mccabe-[place] Bodies Cancelled, Jb Cells Cancelled, Bite Cells Cancelled, Crenated Cell Cancelled, Acanthocytes (Spur) Cancelled, Rouleaux Cancelled, Schistocytes Cancelled 11/01/24 12:50: PT 13.8, INR 1.0, APTT 28.7, Lactic Acid 2.3 H* 11/01/24 13:00: WBC 13.6 H, RBC 4.20 L, Hgb 14.3, Hct 41.7, MCV 99.3 H, MCH 34.0 H, MCHC 34.3, RDW Std Deviation 45.6 H, RDW Coeff of Whitney 12.5, Plt Count 138 L, MPV 10.4, Immature Gran % (Auto) 0.700, Neut % (Auto) 79.1 H, Lymph % (Auto) 10.5 L, Hood % (Auto) 9.0, Eos % (Auto) 0.4, Baso % (Auto) 0.3, Absolute Neuts (auto) 10.8 H, Absolute Lymphs (auto) 1.42, Nucleated RBC % 0, Sodium 134 L, Potassium 3.6, Chloride 104, Carbon Dioxide 19.0 L, Anion Gap 12, BUN 42 H, Creatinine 2.97 H, Est GFR (MDRD) Af Amer 27 L, Est GFR (MDRD) Non-Af 22 L, BUN/Creatinine Ratio 14.1, Glucose 154 H, Calcium 9.1, Total Bilirubin 0.50, AST 67 H, ALT 37, Alkaline Phosphatase 95, Troponin I High Sens 166 H*, B-Natriuretic Peptide 51.5, Total Protein 7.8, Albumin 3.6, Globulin 4.2, Albumin/Globulin Ratio 0.9, Urine Color Yellow, Urine Clarity Sl. Cloudy, Urine pH 5.0, Ur Specific [place] 1.025, Urine Protein 100 H, Urine Glucose (UA) Normal, Urine Ketones Negative, Urine Occult Blood 250 H, Urine Nitrite Positive H, Urine Bilirubin Negative, Urine Urobilinogen Normal, Ur Leukocyte Esterase 500 H, Urine RBC 0-5 SEEN, Urine WBC 25-50 SEEN, Ur Squamous Epith Cells 0-5 SEEN, Ur Renal Epithelial Cell 0-5 SEEN, Urine Bacteria 3+, Urine Mucus 0 SEEN 11/01/24 15:28: Troponin I High Sens 187 H* 11/01/24 17:07: Lactic Acid 3.5 H* 11/01/24 19:17: D-Dimer Quant (PE/DVT) 1.53 H* 11/01/24 21:37: Procalcitonin 4.25 H 11/02/24 01:25: APTT 226.2 H* 11/02/24 03:07: WBC 17.2 H, RBC 3.76 L, Hgb 12.7 L, Hct 37.5 L, MCV 99.7 H, MCH 33.8 H, MCHC 33.9, RDW Std Deviation 46.5 H, RDW Coeff of Whitney 12.7, Plt Count 100 L, MPV 10.8, Sodium 140, Potassium 3.5, Chloride 108 H, Carbon Dioxide 15.0 L, Anion Gap 17 H, BUN 42 H, Creatinine 3.25 H, Estim Creat Clear Calc 22.61, Est GFR (MDRD) Af Amer 24 L, Est GFR (MDRD) Non-Af 20 L, BUN/Creatinine Ratio 12.9, Glucose 162 H, Calcium 8.0 L, Phosphorus 1.2 L, Magnesium 1.6 Micro: Microbiology 11/01/24 22:30 Stool Enteric Bacteriology - Final 11/01/24 22:30 Stool Clostridioides difficile (PCR) - Final 11/01/24 13:06 Mucosa - Nose SARS-CoV-2, Influenza & RSV (PCR) - Final Influenzae A ABG Data ABG results: ABG 11/01/24 11/02/24 18:44 01:50 Specimen Type ART MARGOTH Sample Site R Radial R Radial pH 7.37 Bicarbonate Actual 14.9 L Total CO2 16 Base Excess -10 L O2 Saturation 96 O2 % 6.0 21.0 ABG pCO2 26.1 L ABG pO2 84 Ahsan Test Positive VBG pH 7.27 L VBG pO2 22 L VBG HCO3 17 L VBG Total CO2 18 L VBG O2 Sat (Calc) 31 L VBG Base Excess -10 L POC Mix VBG pCO2 Pt Tmp 36.2 L Respiration Rate 12 O2 Delivery Device Cannula BiPAP Vent Mode Not entered Clinical Comments 12 8 Imaging Radiology Impression Chest X-Ray 11/01/24 13:15 IMPRESSION: NO ACUTE FINDINGS. Reading Location: [facility] Renal Ultrasound 11/01/24 17:35 IMPRESSION: Right renal cysts, inferior pole. No hydronephrosis. Bilateral ureteral jets were not visualized on this study. Reading Location: [facility] Chest X-Ray 11/02/24 00:52 IMPRESSION: Blunting of the lateral costophrenic angle due to pleural fluid and or thickening. No active cardiopulmonary disease. Reading Location: [facility] Charges/Coding Visit Charges Inpatient E&M: 41186 Init Hosp L3
[2024-11-02 08:22] LABS: BNP,B-Type NATRIURETIC PEPTIDE 105.5 pg/mL (0-100)
[2024-11-02 08:53] LABS: Allen Test Positive; Base Excess -13 mmol/L (-2 to +2); Bicarbonate 13.4 mmol/L (22-26); Blood Gas Specimen Type ART; Mode Not entered; O2 Delivery Device BiPAP; PEEP 8; PO2 64 mmHG (75-100); RR 12; SITE R Radial; SO2 91 % (95-99); Total Carbon Dioxide 14 mmol/L; pH 7.31 (7.35-7.45)
--- NOTE | 2024-11-02 09:49 | CASEMGMT ---
SAMEERA ORONA Assessment Face to Face with patient for initial transition planning/care coordination assessment. SAMEERA ORONA introduced self and role at [facility], pt voices understanding. Pt is A&Ox4 and is resting comfortably in bed and is calm. Pt is currently on BiPAP but is able to communicate well with this SAMEERA ORONA. Care providers, pharmacy, and demographics verified. Admitting dx: FLU A, LORENZO, Dehydration LACE Strata: 2 PCP: Bari Francisco Specialists: Denies Preferred Pharmacy[facility] Insurance: MCR A/B, [employer] Supplement Prescription Benefit: Yes LNOK: Michelle Wilder (W) Living Arrangements: Pt lives with his in a single story home with 3 steps to enter ADLs/IADLs: Reports that he is ind at baseline but is unsure of his current status. PT is ordered and pending Transportation: Self, family. Denies concerns DME: Cane, FWW, shower chair, BP Machine, Pulse ox. Pt is currently requiring additional oxygen and may qualify for home oxygen use. A verbal list of local in-network DME companies were provided to the pt at this time. Pt prefers [facility] HHC/SNF: Denies Hx. Pt has been to [facility] in the past for OP PT Pt?s goal: Return home at the time of DC Plan: TBD. Anticipate HH vs OP Tx. Follow for Oxygen needs. There is no current 6-Click score entered and therapy evaluations are pending. Pt states that it is too early to tell what I will need at the time of DC. CM and SW to continue to follow. Pt denies further needs at this time. Severiano Marie RN, CM
[2024-11-02] MEDS: Oseltamivir Phosphate 30 MG Capsule PO (10:03)
[2024-11-02] MEDS: Metoprolol Tartrate 25 MG Tablet PO ×2 (10:03→21:49)
[2024-11-02] MEDS: Atorvastatin Calcium 10 MG Tablet PO (10:03)
[2024-11-02] MEDS: Aspirin 81 MG TAB.CHEW PO (10:03)
[2024-11-02] MEDS: Ibuprofen 400 MG Tablet PO (10:13)
--- NOTE | 2024-11-02 10:59 | CON.PCM.RE_ITS ---
Assessment & Plan Assessment/Plan (1) LORENZO (acute kidney injury): PLAN: It appears she has CKD stage IIIb. Over the last several years, creatinine has ranged between 1.6-1.8 as high as 2.0. Last known creatinine is 1.9 from May 2023. It is possible that his baseline is even higher. This admission he came in with creatinine of 2.9, slightly higher at 3.2 today. Renal ultrasound without any hydronephrosis Urine analysis with leukocytes, cells, consistent with UTI. Urine culture positive for E. coli Other events including influenza pneumonia, likely superimposed bacterial pneumonia, severe sepsis, lactic acidosis. He has received IV fluids. Received a dose of Lasix to in view of shortness of breath. Nonoliguric, total urine output 750 cc yesterday. Still making some urine. No acute indications for renal replacement therapy today. Continue supportive therapy. Will follow Acidosis. Anion gap elevated at 17. Likely due to a combination of lactic acidosis and acute renal failure. Hold off on bicarbonate due to borderline respiratory status. If acidosis worsens, can do a trial of bicarbonate. Will discuss with ICU attending HPI Consult Data Date of Consult: 11/02/24 HPI Narrative Reason for Consultation: LORENZO HPI Narrative: FABIAN WOODRUFF, is a 74 M who presents to the hospital with shortness of breath. Nephrology on consultation in view of acute renal failure. Apparently has been sick for about 2 weeks now, presented with weakness, shortness of breath. Ongoing events include Influenza pneumonia, likely superimposed secondary pneumonia given significantly elevated procalcitonin, currently on broad-spectrum antibiotics including vancomycin and Zosyn Sepsis, no severe septic shock yet. Currently not on pressors Lactic acidosis, presumably related to sepsis, status post aggressive IV fluid resuscitation Urine culture positive for gram-negative rods. Blood cultures negative so far. Influenza positive Nephrology on consultation in view of acute renal failure On review of his previous lab data, it seems he has CKD stage IIIb with baseline creatinine around 1.9 as of May 2023. 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 ON LICENSE OF [facility] Medical History (Updated 11/02/24 @ 11:[address] Mary Strauss MD) Obesity Quiroz's palsy Hyperlipidemia Essential (primary) hypertension Elevated troponin (2017) Chronic renal insufficiency Blurred vision, left eye Facial droop Home Medications ?Medication ?Instructions ?Recorded ?Last Taken ?Type multivitamin 1 tab PO DAILY 07/09/17 07/09/17 07:00 History naproxen sodium 220 mg tablet 220 mg PO Q12H PRN PRN Pain 04/12/17 04/12/17 07:00 History aspirin 81 mg chewable tablet 81 mg PO DAILY@0800 ##30 04/14/17 Unknown Rx lisinopril 10 1 tab PO DAILY #90 tabs 07/01/19 Unknown History mg-hydrochlorothiazide 12.5 mg tablet atorvastatin 10 mg tablet 10 mg PO QDAY #90 tabs 01/29/24 Unknown Rx meloxicam 15 mg tablet 15 mg PO DAILY PRN pain 11/01/24 Unknown History metoprolol tartrate 25 mg tablet 25 mg PO BID 11/01/24 Unknown History Allergy/AdvReac Type Severity Reaction Status Date / Time No Known Allergies Allergy Verified 07/01/19 12:49 Family History Father Heart disease Mother Heart disease Brother Hypertension Surgical History Hx of transurethral resection of prostate Hx of knee surgery H/O shoulder surgery Social History Smoking Status: Former smoker alcohol intake: never caffeine: Yes Type: carbonated beverages ROS ROS Narrative Negative except above Physical Exam Narrative Alert awake oriented x 3 no obvious distress no pallor no icterus no JVD s1s2 no murmurs lungs Rales present abdomen soft no organomegaly no edema no cyanosis winters + Lab / Micro Data 11/02/24 03:07 11/02/24 03:07 Labs: Laboratory Results - last 24 hr 11/01/24 12:39: WBC Cancelled, Corrected WBC Cancelled, RBC Cancelled, Hgb Cancelled, Hct Cancelled, MCV Cancelled, MCH Cancelled, MCHC Cancelled, RDW Std Deviation Cancelled, RDW Coeff of Whitney Cancelled, Plt Count Cancelled, MPV Cancelled, Immature Gran % (Auto) Cancelled, Neut % (Auto) Cancelled, Lymph % (Auto) Cancelled, [place] % (Auto) Cancelled, Eos % (Auto) Cancelled, Baso % (Auto) Cancelled, Absolute Neuts (auto) Cancelled, Absolute Lymphs (auto) Cancelled, Total Counted Cancelled, Neutrophils % (Manual) Cancelled, Band Neutrophils % Cancelled, Lymphocytes % (Manual) Cancelled, Monocytes % (Manual) Cancelled, Eosinophils % (Manual) Cancelled, Basophils % (Manual) Cancelled, Metamyelocytes % Cancelled, Myelocytes % Cancelled, Promyelocytes % Cancelled, Blast Cells % Cancelled, Plasma Cell % (Manual) Cancelled, Other Cells % Cancelled, Nucleated RBC % Cancelled, Nucleated RBCs/100 WBC Cancelled, Differential Comment Cancelled, Diff Path Review Cancelled, Hypersegmented Neuts Cancelled, Atypical Lymphocytes Cancelled, Reactive Lymphocytes Cancelled, Smudge Cells Cancelled, Toxic Granulation Cancelled, Toxic Vacuolation Cancelled, Dohle Bodies Cancelled, Tejal Rods Cancelled, Platelet Estimate Cancelled, Plt Morphology Comment Cancelled, RBC Morphology Cancelled 11/01/24 12:39: RBC Morphology Cancelled, Polychromasia Cancelled, Hypochromasia Cancelled, Basophilic Stippling Cancelled, Anisocytosis Cancelled, Microcytosis Cancelled, Macrocytosis Cancelled, Spherocytes Cancelled, Sickle Cells Cancelled, Target Cells Cancelled, Tear Drop Cells Cancelled, Ovalocytes Cancelled, Stomatocytes Cancelled, Mccabe-[place] Bodies Cancelled, [place] Cells Cancelled, Bite Cells Cancelled, Crenated Cell Cancelled, Acanthocytes (Spur) Cancelled, Rouleaux Cancelled, Schistocytes Cancelled 11/01/24 12:50: PT 13.8, INR 1.0, APTT 28.7, Lactic Acid 2.3 H* 11/01/24 13:00: WBC 13.6 H, RBC 4.20 L, Hgb 14.3, Hct 41.7, MCV 99.3 H, MCH 34.0 H, MCHC 34.3, RDW Std Deviation 45.6 H, RDW Coeff of Whitney 12.5, Plt Count 138 L, MPV 10.4, Immature Gran % (Auto) 0.700, Neut % (Auto) 79.1 H, Lymph % (Auto) 10.5 L, [place] % (Auto) 9.0, Eos % (Auto) 0.4, Baso % (Auto) 0.3, Absolute Neuts (auto) 10.8 H, Absolute Lymphs (auto) 1.42, Nucleated RBC % 0, Sodium 134 L, Potassium 3.6, Chloride 104, Carbon Dioxide 19.0 L, Anion Gap 12, BUN 42 H, C reatinine 2.97 H, Est GFR (MDRD) Af Amer 27 L, Est GFR (MDRD) Non-Af 22 L, BUN/Creatinine Ratio 14.1, Glucose 154 H, Calcium 9.1, Total Bilirubin 0.50, AST 67 H, ALT 37, Alkaline Phosphatase 95, Troponin I High Sens 166 H*, B- Natriuretic Peptide 51.5, Total Protein 7.8, Albumin 3.6, Globulin 4.2, Albumin/Globulin Ratio 0.9, Urine Color Yellow, Urine Clarity Sl. Cloudy, Urine pH 5.0, Ur Specific [place] 1.025, Urine Protein 100 H, Urine Glucose (UA) Normal, Urine Ketones Negative, Urine Occult Blood 250 H, Urine Nitrite Positive H, Urine Bilirubin Negative, Urine Urobilinogen Normal, Ur Leukocyte Esterase 500 H, Urine RBC 0-5 SEEN, Urine WBC 25-50 SEEN, Ur Squamous Epith Cells 0-5 SEEN, Ur Renal Epithelial Cell 0-5 SEEN, Urine Bacteria 3+, Urine Mucus 0 SEEN 11/01/24 15:28: Troponin I High Sens 187 H* 11/01/24 17:07: Lactic Acid 3.5 H* 11/01/24 19:17: D-Dimer Quant (PE/DVT) 1.53 H* 11/01/24 21:37: Procalcitonin 4.25 H 11/02/24 01:25: APTT 226.2 H*, B-Natriuretic Peptide 105.5 H 11/02/24 03:07: WBC 17.2 H, RBC 3.76 L, Hgb 12.7 L, Hct 37.5 L, MCV 99.7 H, MCH 33.8 H, MCHC 33.9, RDW Std Deviation 46.5 H, RDW Coeff of Whitney 12.7, Plt Count 100 L, MPV 10.8, Sodium 140, Potassium 3.5, Chloride 108 H, Carbon Dioxide 15.0 L, Anion Gap 17 H, BUN 42 H, Creatinine 3.25 H, Estim Creat Clear Calc 22.61, E st GFR (MDRD) Af Amer 24 L, Est GFR (MDRD) Non-Af 20 L, BUN/Creatinine Ratio 12.9, Glucose 162 H, Calcium 8.0 L, Phosphorus 1.2 L, Magnesium 1.6, B- Natriuretic Peptide 115.0 H Micro: Microbiology 11/01/24 13:00 Urine, Clean Catch Urine Culture - Preliminary GNR lactose hose wrapper 11/01/24 22:30 Stool Enteric Bacteriology - Final 11/01/24 22:30 Stool Clostridioides difficile (PCR) - Final 11/01/24 13:06 Mucosa - Nose SARS-CoV-2, Influenza & RSV (PCR) - Final Influenzae A ABG Data ABG results: ABG 11/01/24 11/02/24 11/02/24 18:44 01:50 08:50 Specimen Type ART MARGOTH ART Sample Site R Radial R Radial R Radial pH 7.37 7.31 L Bicarbonate Actual 14.9 L 13.4 L Total CO2 16 14 Base Excess -10 L -13 L O2 Saturation 96 91 L O2 % 6.0 21.0 40.0 ABG pCO2 26.1 L 27.0 L ABG pO2 84 64 L Ahsan Test Positive Positive VBG pH 7.27 L VBG pO2 22 L VBG HCO3 17 L VBG Total CO2 18 L VBG O2 Sat (Calc) 31 L VBG Base Excess -10 L POC Mix VBG pCO2 Pt Tmp 36.2 L Respiration Rate 12 12 O2 Delivery Device Cannula BiPAP BiPAP Vent Mode Not entered Not entered POC PEEP 8 Clinical Comments 12 8 Imaging Radiology Impression Chest X-Ray 11/01/24 13:15 IMPRESSION: NO ACUTE FINDINGS. Reading Location: [facility] Renal Ultrasound 11/01/24 17:35 IMPRESSION: Right renal cysts, inferior pole. No hydronephrosis. Bilateral ureteral jets were not visualized on this study. Reading Location: [facility] Chest X-Ray 11/02/24 00:52 IMPRESSION: Blunting of the lateral costophrenic angle due to pleural fluid and or thickening. No active cardiopulmonary disease. Reading Location: [facility]
[2024-11-02 12:32] LABS: Partial Thromboplast Time 133.5 Seconds (24.1-36.2)
[2024-11-02 12:33] LABS: BNP,B-Type NATRIURETIC PEPTIDE 499.5 pg/mL (0-100)
--- NOTE | 2024-11-02 17:42 | PN.HOSP_ITS ---
Reason for Visit Reason for Visit: Diagnoses Sepsis, unspecified organism (11/01/24) Myocardial infarction type 2 (11/01/24) Influenza due to other identified influenza virus with other respiratory manifestations (11/01/24) Acute respiratory failure with hypoxia (11/01/24) Acute kidney failure, unspecified (11/01/24) Subjective Subjective Patient was seen and examined today, I talked briefly with critical care about his care. Patient had some hematuria this afternoon and I elected to take him off his heparin drip, the patient's venous duplex scan of the lower extremities was negative. Objective Data Objective Data Vital Signs: Vital Signs Temp Pulse Resp BP Pulse Ox O2 Del Method O2 Flow Rate 99.2 F H 80 30 H 98/45 L 95 Nasal Cannula 3 11/02/24 17:10 11/02/24 17:10 11/02/24 17:10 11/02/24 17:10 11/02/24 17:10 11/02/24 17:10 11/02/24 17:10 FiO2 40 11/02/24 14:30 Oxygen Flow Rate (L/min) 3 Oxygen Delivery Method Nasal Cannula Weight: 107.7 kg Body Mass Index (BMI) 38.1 Intake & Output: Intake and Output for Last 24 Hours 10/31/24 11/01/24 11/02/24 23:59 23:59 23:59 Intake Total 2856.67 / 2856.67 1475.4833 / 1475.4833 Output Total 750 / 750 225 / 225 Balance 2106.67 / 2106.67 1250.4833 / 1250.4833 Lab / Micro Data 11/02/24 03:07 11/02/24 03:07 Labs: Laboratory Results - last 24 hr 11/01/24 17:07: Lactic Acid 3.5 H* 11/01/24 19:17: D-Dimer Quant (PE/DVT) 1.53 H* 11/01/24 21:37: Procalcitonin 4.25 H 11/02/24 01:25: APTT 226.2 H*, B-Natriuretic Peptide 105.5 H 11/02/24 03:07: WBC 17.2 H, RBC 3.76 L, Hgb 12.7 L, Hct 37.5 L, MCV 99.7 H, MCH 33.8 H, MCHC 33.9, RDW Std Deviation 46.5 H, RDW Coeff of Whitney 12.7, Plt Count 100 L, MPV 10.8, Sodium 140, Potassium 3.5, Chloride 108 H, Carbon Dioxide 15.0 L, Anion Gap 17 H, BUN 42 H, Creatinine 3.25 H, Estim Creat Clear Calc 22.61, E st GFR (MDRD) Af Amer 24 L, Est GFR (MDRD) Non-Af 20 L, BUN/Creatinine Ratio 12.9, Glucose 162 H, Calcium 8.0 L, Phosphorus 1.2 L, Magnesium 1.6, B- Natriuretic Peptide 115.0 H 11/02/24 12:00: APTT 133.5 H*, B-Natriuretic Peptide 499.5 H Micro: Microbiology 11/01/24 13:00 Urine, Clean Catch Urine Culture - 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 11/01/24 22:30 Stool Enteric Bacteriology - Final 11/01/24 22:30 Stool Clostridioides difficile (PCR) - Final 11/01/24 13:06 Mucosa - Nose SARS-CoV-2, Influenza & RSV (PCR) - Final Influenzae A ABG Data ABG results: ABG 11/01/24 11/02/24 11/02/24 18:44 01:50 08:50 Specimen Type ART MARGOTH ART Sample Site R Radial R Radial R Radial pH 7.37 7.31 L Bicarbonate Actual 14.9 L 13.4 L Total CO2 16 14 Base Excess -10 L -13 L O2 Saturation 96 91 L O2 % 6.0 21.0 40.0 ABG pCO2 26.1 L 27.0 L ABG pO2 84 64 L Ahsan Test Positive Positive VBG pH 7.27 L VBG pO2 22 L VBG HCO3 17 L VBG Total CO2 18 L VBG O2 Sat (Calc) 31 L VBG Base Excess -10 L POC Mix VBG pCO2 Pt Tmp 36.2 L Respiration Rate 12 12 O2 Delivery Device Cannula BiPAP BiPAP Vent Mode Not entered Not entered POC PEEP 8 Clinical Comments 12 8 Radiography Diagnostic Testing: Radiology Impression Renal Ultrasound 11/01/24 17:35 IMPRESSION: Right renal cysts, inferior pole. No hydronephrosis. Bilateral ureteral jets were not visualized on this study. Reading Location: [facility] Echocardiogram 11/01/24 18:08 Interpretation Summary The estimated ejection fraction is 55 %. No evidence for diastolic dysfunction. Trivial pericardial effusion. Ordering Physician: Sammy Green Performed By: Milind Martinez RCS Chest X-Ray 11/02/24 00:52 IMPRESSION: Blunting of the lateral costophrenic angle due to pleural fluid and or thickening. No active cardiopulmonary disease. Reading Location: [facility] Physical Exam Const alert, oriented x3 and no apparent distress General Appearance: cooperative, well kempt and well developed Orientation / Consciousness: awake, oriented to person, oriented to place and oriented to time HEENT normocephalic, head/scalp atraumatic and moist oral mucous membranes Eyes PERRL, EOMs intact bilaterally and conjunctivae normal Neck supple, no JVD, thyroid normal and no carotid bruits General: trachea midline Resp normal respiratory effort and no retractions Resp Narrative: There are expiratory wheezes noted bilaterally Auscultation: wheezes; Negative for rales or rhonchi Cardio regular rate, regular rhythm, S1 normal heart sound, S2 normal heart sound, no murmurs, no rub and no gallops GI normal to inspection, nondistended, normoactive bowel sounds, soft to palpation, non-tender and non-distended Extremity no clubbing, cyanosis or edema Skin no rashes or lesions noted General Skin Exam: no breakdown Neuro oriented x3, CN's II-XII intact bilaterally, moves all extremities, no focal motor deficits and no sensory deficits noted Sensorium / Orientation: awake and alert Speech: speech normal Psych affect normal Assessment & Plan Assessment/Plan (1) Acute hypoxic respiratory failure: PLAN: Plan 1. Acute hypoxic respiratory failure secondary to influenza A-patient will remain on Tamiflu and aerosol treatments #2 sepsis secondary to acute cystitis-patient is on vancomycin and Zosyn #3 elevated troponin secondary to demand ischemia-this probably resulted from respiratory failure #4 acute kidney injury-patient's baseline creatinine however is not definitely known, nephrology is participating in his care, labs will be monitored Total clinical time spent by myself addressing the patient's medical issues, reviewing all of his data, and collaborating with patient's care team: 35 minutes Charges/Coding Visit Charges Inpatient E&M: 95390 Subs Hosp L2
[2024-11-02] MEDS: Vancomycin IV 1,000 MG/200 ML BAG 200 MG IV (21:41)
[2024-11-03] VITALS (32 sets, daily range): BP systolic 95–158; BP diastolic 54–98; PULSE 69–126; RESP 12–32; TEMP 36.9–38.1; O2SAT 92–99; BMI 38.4
[2024-11-03] MEDS: Ipratropium/Albuterol Sulfate 3 ML AMPUL.NEB INHALATION ×4 (01:00→19:38)
[2024-11-03] MEDS: 0.9% Saline Lock 10 ML Syringe IV ×2 (02:08→20:39)
[2024-11-03 02:21] LABS: Hematocrit 36.8 % (40-54); Hemoglobin 12.4 g/dL (13.0-16.5); Mean Corp Hgb Conc 33.7 g/dL (32-36); Mean Corpuscular Hgb 33.8 pg (27.0-32.0); Mean Corpuscular Volume 100.3 fL (80-94); Mean Platelet Vol. 10.9 fl (6.2-12.0); POSITIVE COUNT YES; POSITIVE DIFFERENTIAL YES; POSITIVE MORPHOLOGY YES; Platelet Count 105 K/mm3 (150-450); RBC Distribution Width CV 13.2 % (11.6-14.6); RBC Distribution Width SD 49.1 fl (35.1-43.9); Red Blood Count 3.67 M/mm3 (4.6-6.2)
[2024-11-03 02:25] LABS: Differential Indicated MANUAL DIFF; White Blood Count 31.5 K/mm3 (4.4-11.0)
[2024-11-03 02:50] LABS: Anion Gap 13 (5-15); BUN 62 mg/dL (7-18); BUN/Creat Ratio 11.7 RATIO (10-20); Calcium,Total 7.8 mg/dL (8.5-10.1); Chloride 106 mmol/L (98-107); Creatinine, Serum 5.29 mg/dL (0.70-1.30); EST Glomerular Filtration Rate 11 mL/min (>60); Est Glom Filt Rate - Afr Amer 14 mL/min (>60); Glucose 119 mg/dL (74-106); Magnesium 2.2 mg/dL (1.6-2.6); Potassium 4.4 mmol/L (3.5-5.1); Sodium Level 139 mmol/L (136-145)
[2024-11-03 02:51] LABS: Phosphorus 6.8 mg/dL (2.5-4.9)
[2024-11-03 03:17] LABS: Lymphocyte 11 % (19-41); Metamyelocyte 1 % (0-1); Monocyte 2 % (0-10); Neutrophil-Band 2 % (0-5); Neutrophil-Segmented 84 % (47-70); Total Cells Counted 100 (MANUAL DIFF)
[2024-11-03 03:18] LABS: Absolute Neutrophil Count 26.5 X10^3/uL (2.0-7.7)
[2024-11-03 03:19] LABS: Red Cell Morphology N CHROM NORMAL (NORM C&C)
[2024-11-03 03:20] LABS: Macrocytosis 2+
[2024-11-03 03:21] LABS: Platelet Estimate SLT DEC (ADEQ)
[2024-11-03] MEDS: Piperacil/Tazobactam 3.375 GM in 0.9% Normal Saline (50mL MB+) 50 ML IV ×3 (05:10→20:40)
[2024-11-03] MEDS: Nystatin Powder 15gm Bottle 1 APPLIC TOPICAL ×3 (06:54→20:42)
--- NOTE | 2024-11-03 08:05 | PCM.PN.INT ---
Assessment & Plan Assessment/Plan (1) Sepsis: (2) Acute hypoxic respiratory failure: (3) Type 2 acute myocardial infarction: (4) Influenza A: PLAN: Plan RECOMMENDATIONS: 1. Supplemental oxygen to maintain saturations at or above 90%. 2. Continue Tamiflu as ordered. 3. Continue empiric antibiotics. 4. Holding pharmacologic DVT prophylaxis due to hematuria 5. Encourage incentive spirometer use and mobilize patient as tolerated. IMPRESSIONS: 1. Sepsis The patient presented to the hospital with sepsis due to suspected UTI with influenza A infection, with acute sepsis related organ dysfunction as evidenced by acute respiratory failure requiring noninvasive positive pressure ventilatory support, lactic acidemia and acute kidney injury. The patient did receive sepsis fluids, but remains otherwise hemodynamically stable. Continue supportive care with empiric antibiotics and Tamiflu, pending culture results. 2. Acute on chronic kidney disease Clinical concern for ATN in the setting of sepsis. Renal ultrasound was largely unremarkable. Continue current supportive measures while avoiding nephrotoxic medications. Nephrology is currently following to assist with medical management. 3. Acute hypoxemic respiratory failure Most likely secondary to influenza A infection. While the patient was initially placed on BiPAP therapy, he has since been weaned to nasal cannula oxygen. Lower extremity Doppler studies were negative for PE. Continue current supportive care with supplemental oxygen to maintain saturations at or above 90% along with Tamiflu and empiric antibiotics. 4. NSTEMI Most likely secondary to demand ischemia in the setting of sepsis and respiratory failure. Echocardiogram was unremarkable. 5. History of obesity/hypertension/hyperlipidemia/osteoarthritis Complicates care, management, recovery and prognosis. Continue home medications as indicated. Encourage incentive spirometer use and mobilize patient as tolerated. This note was generated with [employer] dictation software. It may contain incorrect words, spelling, and punctuation that were not noted in checking the note before signing. Subjective Subjective The patient was seen and examined at the bedside this morning. Events from the last 24 hours have been reviewed. The patient is currently afebrile, hemodynamically stable and maintaining appropriate oxygen saturations on 4 L/min via nasal cannula. The patient is currently documented to be overall net +3.6 L for the hospitalization. White blood cell count is elevated at 31,000. Platelet count is dropped to 105,000. Chemistry profile was notable for a bicarbonate of 20, BUN of 62 and creatinine of 5.29. The patient continues to have hematuria. BNP is elevated at 500. Objective Data Objective Data The patient's most recent lab work, culture data and imaging studies have all been personally reviewed. Surface echocardiogram demonstrated normal LV size and function with an ejection fraction of 55%. Lower extremity Doppler study was negative for DVT. Respiratory panel was positive for influenza A. Urine culture is currently demonstrating growth of Klebsiella pneumonia. Blood cultures have not demonstrated any growth to date. Vital Signs: Vital Signs Temp Pulse Resp BP Pulse Ox O2 Del Method O2 Flow Rate 99.0 F 103 H 32 H 114/80 94 Nasal Cannula 4 11/03/24 07:00 11/03/24 07:00 11/03/24 07:00 11/03/24 07:00 11/03/24 07:00 11/03/24 07:00 11/03/24 07:00 FiO2 30 11/03/24 04:00 Oxygen Flow Rate (L/min) 4 Oxygen Delivery Method Nasal Cannula Weight: 237 lb 14.06 oz Body Mass Index (BMI) 38.4 Intake & Output: Intake and Output for Last 24 Hours 11/01/24 11/02/24 11/03/24 23:59 23:59 23:59 Intake Total 2856.67 / 2856.67 1785.4833 / 1785.4833 250 / 250 Output Total 750 / 750 325 / 325 175 / 175 Balance 2106.67 / 2106.67 1460.4833 / 1460.4833 75 / 75 Lab / Micro Data Attestation: I reviewed the patient's lab results. 11/03/24 02:05 11/03/24 02:05 Labs: Laboratory Results - last 24 hr 11/02/24 01:25: B-Natriuretic Peptide 105.5 H 11/02/24 03:07: B-Natriuretic Peptide 115.0 H 11/02/24 12:00: APTT 133.5 H*, B-Natriuretic Peptide 499.5 H 11/03/24 02:05: WBC 31.5 H*, RBC 3.67 L, Hgb 12.4 L, Hct 36.8 L, MCV 100.3 H, MCH 33.8 H, MCHC 33.7, RDW Std Deviation 49.1 H, RDW Coeff of Whitney 13.2, Plt Count 105 L, MPV 10.9, Neut % (Auto) Not Reportable, Absolute Neuts (auto) 26.5 H, Absolute Lymphs (auto) 3.50, Total Counted 100, Neutrophils % (Manual) 84 H, Band Neutrophils % 2, Lymphocytes % (Manual) 11 L, Monocytes % (Manual) 2, Metamyelocytes % 1, Diff Path Review May foll, Platelet Estimate SLT DEC, RBC Morphology N CHROM, Macrocytosis 2+, Sodium 139, Potassium 4.4, Chloride 106, Carbon Dioxide 20.0 L, Anion Gap 13, BUN 62 H, Creatinine 5.29 H, Estim Creat Clear Calc 13.90, Est GFR (MDRD) Af Amer 14 L, Est GFR (MDRD) Non-Af 11 L, BUN/Creatinine Ratio 11.7, Glucose 119 H, Calcium 7.8 L, Phosphorus 6.8 H, Magnesium 2.2 Micro: Microbiology 11/01/24 13:00 Urine, Clean Catch Urine Culture - Final Klebsiella pneumoniae sp pneum 11/01/24 22:30 Stool Enteric Bacteriology - Final 11/01/24 22:30 Stool Clostridioides difficile (PCR) - Final 11/01/24 13:06 Mucosa - Nose SARS-CoV-2, Influenza & RSV (PCR) - Final Influenzae A ABG Data ABG results: ABG 11/02/24 08:50 Specimen Type ART Sample Site R Radial pH 7.31 L Bicarbonate Actual 13.4 L Total CO2 14 Base Excess -13 L O2 Saturation 91 L O2 % 40.0 ABG pCO2 27.0 L ABG pO2 64 L Ahsan Test Positive Respiration Rate 12 O2 Delivery Device BiPAP Vent Mode Not entered POC PEEP 8 Radiography Diagnostic Testing: Radiology Impression Echocardiogram 11/01/24 18:08 Interpretation Summary The estimated ejection fraction is 55 %. No evidence for diastolic dysfunction. Trivial pericardial effusion. Ordering Physician: Sammy Green Performed By: Milind Martinez RCS Venous Doppler Study 11/01/24 19:06 Interpretation Summary Deep veins of the lower extremities are bilaterally patent and compressible segmentally. There is no evidence of deep vein thrombosis on either side. Valvular competence appears intact within the proximal deep venous systems bilaterally. The great saphenous veins appear bilaterally patent and compressible segmentally. Ordering Physician: Sammy Green Referring Physician: Bari Francisco Performed By: Jason Godinez RVT Physical Exam Const alert, oriented x3 and no apparent distress Constitutional Narrative: Sitting in bedside recliner. General Appearance: ill appearing HEENT normocephalic and head/scalp atraumatic Eyes PERRL, EOMs intact bilaterally and conjunctivae normal Neck supple General: trachea midline Chest inspection of chest normal Resp Effort and Inspection: tachypneic Auscultation: rhonchi and diminished lung sounds; Negative for rales or wheezes Cardio regular rate and regular rhythm GI normal to inspection, nondistended, normoactive bowel sounds Extremity no clubbing, cyanosis or edema Skin no rashes or lesions noted Neuro CN's II-XII intact bilaterally, moves all extremities and no focal motor deficits Psych Mood & Affect: flat affect Charges/Coding Visit Charges Inpatient E&M: 00446 Subs Hosp L2
[2024-11-03] MEDS: Oseltamivir Phosphate 30 MG Capsule PO (08:08)
[2024-11-03] MEDS: Atorvastatin Calcium 10 MG Tablet PO (08:08)
[2024-11-03] MEDS: Aspirin 81 MG TAB.CHEW PO (08:08)
[2024-11-03] MEDS: Metoprolol Tartrate 25 MG Tablet PO ×2 (08:08→20:38)
[2024-11-03] MEDS: BENZOCAINE/MENTHOL 1 LOZENGE MUCOUS MEM (11:10)
--- NOTE | 2024-11-03 11:16 | PN.RENAL_ITS ---
Subjective Subjective On BiPAP today. Creatinine is worse. Overnight developed hematuria in the setting of heparin drip use. Currently has a Winters catheter. Remains oliguric. Chest x-ray today is not very impressive. WBC count significantly higher. Venous Dopplers negative, currently off heparin drip. Objective Data Objective Data Vital Signs: Vital Signs Temp Pulse Resp BP Pulse Ox O2 Del Method O2 Flow Rate 99.0 F 76 22 H 95/78 99 Nasal Cannula 4 11/03/24 08:00 11/03/24 09:00 11/03/24 09:00 11/03/24 09:00 11/03/24 09:00 11/03/24 09:00 11/03/24 09:00 FiO2 30 11/03/24 04:00 Oxygen Flow Rate (L/min) 4 Oxygen Delivery Method Nasal Cannula Weight: 107.9 kg Body Mass Index (BMI) 38.4 Intake & Output: Intake and Output for Last 24 Hours 11/01/24 11/02/24 11/03/24 23:59 23:59 23:59 Intake Total 2856.67 / 2856.67 1785.4833 / 1785.4833 300 / 300 Output Total 750 / 750 325 / 325 175 / 175 Balance 2106.67 / 2106.67 1460.4833 / 1460.4833 125 / 125 Lab / Micro Data 11/03/24 02:05 11/03/24 02:05 Labs: Laboratory Results - last 24 hr 11/02/24 12:00: APTT 133.5 H*, B-Natriuretic Peptide 499.5 H 11/03/24 02:05: WBC 31.5 H*, RBC 3.67 L, Hgb 12.4 L, Hct 36.8 L, MCV 100.3 H, M CH 33.8 H, MCHC 33.7, RDW Std Deviation 49.1 H, RDW Coeff of Whitney 13.2, Plt Count 105 L, MPV 10.9, Neut % (Auto) Not Reportable, Absolute Neuts (auto) 26.5 H, Absolute Lymphs (auto) 3.50, Total Counted 100, Neutrophils % (Manual) 84 H, Band Neutrophils % 2, Lymphocytes % (Manual) 11 L, Monocytes % (Manual) 2, Metamyelocytes % 1, Diff Path Review May foll, Platelet Estimate SLT DEC, RBC Morphology N CHROM, Macrocytosis 2+, Sodium 139, Potassium 4.4, Chloride 106, C arbon Dioxide 20.0 L, Anion Gap 13, BUN 62 H, Creatinine 5.29 H, Estim Creat Clear Calc 13.90, Est GFR (MDRD) Af Amer 14 L, Est GFR (MDRD) Non-Af 11 L, BUN/Creatinine Ratio 11.7, Glucose 119 H, Calcium 7.8 L, Phosphorus 6.8 H, Magnesium 2.2 Micro: Microbiology 11/01/24 13:00 Urine, Clean Catch Urine Culture - Final Klebsiella pneumoniae sp pneum 11/01/24 22:30 Stool Enteric Bacteriology - Final 11/01/24 22:30 Stool Clostridioides difficile (PCR) - Final 11/01/24 13:06 Mucosa - Nose SARS-CoV-2, Influenza & RSV (PCR) - Final Influenzae A Radiography Diagnostic Testing: Radiology Impression Echocardiogram 11/01/24 18:08 Interpretation Summary The estimated ejection fraction is 55 %. No evidence for diastolic dysfunction. Trivial pericardial effusion. Ordering Physician: Sammy Green Performed By: Milind Martinez RCS Venous Doppler Study 11/01/24 19:06 Interpretation Summary Deep veins of the lower extremities are bilaterally patent and compressible segmentally. There is no evidence of deep vein thrombosis on either side. Valvular competence appears intact within the proximal deep venous systems bilaterally. The great saphenous veins appear bilaterally patent and compressible segmentally. Ordering Physician: Sammy Green Referring Physician: Bari Francisco Performed By: Jason Godinez RVT Physical Exam Narrative Alert awake oriented x 3 no obvious distress no pallor no icterus no JVD s1s2 no murmurs lungs Rales present abdomen soft no organomegaly no edema no cyanosis winters + Assessment & Plan Assessment/Plan (1) LORENZO (acute kidney injury): PLAN: It appears she has CKD stage IIIb. Over the last several years, creatinine has ranged between 1.6-1.8 as high as 2.0. Last known creatinine is 1.9 from May 2023. It is possible that his baseline is even higher. This admission he came in with creatinine of 2.9, creatinine is worsening Renal ultrasound without any hydronephrosis Urine analysis with leukocytes, cells, consistent with UTI. Urine culture positive for E. coli Other events including influenza pneumonia, likely superimposed bacterial pneumonia, severe sepsis, lactic acidosis. Has been treated for sepsis. Acidosis is better. Blood pressure acceptable. Currently on BiPAP. Acidosis. Anion gap elevated at 17. Likely due to a combination of lactic acidosis and acute renal failure. Bicarbonate is better LORENZO is likely related to ATN in the setting of sepsis. Renal function is worsening. Chest x-ray with some congestion. He did receive Lasix yesterday with moderate response. Today he has hematuria. Echocardiogram with decent ejection fraction. No acute indications for dialysis today but if no improvement over the next 1 to 2 days, he might need dialysis. Explained to him about dialysis, he is agreeable to have it if needed. All questions answered.
[2024-11-03 14:12] LABS: Pathologist Review Reviewed
--- NOTE | 2024-11-03 18:00 | PCM.PN.HOSP ---
Reason for Visit Reason for Visit: Diagnoses Sepsis, unspecified organism (11/01/24) Myocardial infarction type 2 (11/01/24) Influenza due to other identified influenza virus with other respiratory manifestations (11/01/24) Acute respiratory failure with hypoxia (11/01/24) Acute kidney failure, unspecified (11/01/24) Subjective Subjective Patient was seen and examined today, he still having hematuria but it does not seem as severe as it did yesterday. I talked at length with the patient's son, patient's creatinine is bumped up today to 5.29. Patient's renal ultrasound did not show evidence of hydronephrosis. Patient's white blood cell count bumped up today to 31.5. Patient remains on 4 L of oxygen at this time Objective Data Objective Data Vital Signs: Vital Signs Temp Pulse Resp BP Pulse Ox O2 Del Method O2 Flow Rate 99.4 F H 112 H 27 H 132/66 H 97 Nasal Cannula 4 11/03/24 12:00 11/03/24 17:00 11/03/24 17:00 11/03/24 17:00 11/03/24 17:00 11/03/24 17:00 11/03/24 17:00 FiO2 30 11/03/24 04:00 Oxygen Flow Rate (L/min) 4 Oxygen Delivery Method Nasal Cannula Weight: 107.9 kg Body Mass Index (BMI) 38.4 Intake & Output: Intake and Output for Last 24 Hours 11/01/24 11/02/24 11/03/24 23:59 23:59 23:59 Intake Total 2856.67 / 2856.67 1785.4833 / 1785.4833 350 / 350 Output Total 750 / 750 325 / 325 350 / 350 Balance 2106.67 / 2106.67 1460.4833 / 1460.4833 0 / 0 Lab / Micro Data 11/03/24 02:05 11/03/24 02:05 Labs: Laboratory Results - last 24 hr 11/03/24 02:05: WBC 31.5 H*, RBC 3.67 L, Hgb 12.4 L, Hct 36.8 L, MCV 100.3 H, MCH 33.8 H, MCHC 33.7, RDW Std Deviation 49.1 H, RDW Coeff of Whitney 13.2, Plt Count 105 L, MPV 10.9, Neut % (Auto) Not Reportable, Absolute Neuts (auto) 26.5 H, Absolute Lymphs (auto) 3.50, Total Counted 100, Neutrophils % (Manual) 84 H, Band Neutrophils % 2, Lymphocytes % (Manual) 11 L, Monocytes % (Manual) 2, Metamyelocytes % 1, Diff Path Review Reviewed, Platelet Estimate SLT DEC, RBC Morphology N CHROM, Macrocytosis 2+, Sodium 139, Potassium 4.4, Chloride 106, Carbon Dioxide 20.0 L, Anion Gap 13, BUN 62 H, Creatinine 5.29 H, Estim Creat Clear Calc 13.90, Est GFR (MDRD) Af Amer 14 L, Est GFR (MDRD) Non-Af 11 L, BUN/Creatinine Ratio 11.7, Glucose 119 H, Calcium 7.8 L, Phosphorus 6.8 H, Magnesium 2.2 Micro: Microbiology 11/01/24 13:00 Urine, Clean Catch Urine Culture - Final Klebsiella pneumoniae sp pneum 11/01/24 22:30 Stool Enteric Bacteriology - Final 11/01/24 22:30 Stool Clostridioides difficile (PCR) - Final 11/01/24 13:06 Mucosa - Nose SARS-CoV-2, Influenza & RSV (PCR) - Final Influenzae A Radiography Diagnostic Testing: Radiology Impression Venous Doppler Study 11/01/24 19:06 Interpretation Summary Deep veins of the lower extremities are bilaterally patent and compressible segmentally. There is no evidence of deep vein thrombosis on either side. Valvular competence appears intact within the proximal deep venous systems bilaterally. The great saphenous veins appear bilaterally patent and compressible segmentally. Ordering Physician: Sammy Green Referring Physician: Bari Francisco Performed By: Jason Godinez RVSuresh Physical Exam Narrative alert, oriented x3 and no apparent distress General Appearance: cooperative, well kempt and well developed Orientation / Consciousness: awake, oriented to person, oriented to place and oriented to time HEENT normocephalic, head/scalp atraumatic and moist oral mucous membranes Eyes PERRL, EOMs intact bilaterally and conjunctivae normal Neck supple, no JVD, thyroid normal and no carotid bruits General: trachea midline Resp normal respiratory effort and no retractions Resp Narrative: There are expiratory wheezes noted bilaterally Auscultation: wheezes; Negative for rales or rhonchi Cardio regular rate, regular rhythm, S1 normal heart sound, S2 normal heart sound, no murmurs, no rub and no gallops GI normal to inspection, nondistended, normoactive bowel sounds, soft to palpation, non-tender and non-distended Extremity no clubbing, cyanosis or edema Skin no rashes or lesions noted General Skin Exam: no breakdown Neuro oriented x3, CN's II-XII intact bilaterally, moves all extremities, no focal motor deficits and no sensory deficits noted Sensorium / Orientation: awake and alert Speech: speech normal Psych affect normal Assessment & Plan Assessment/Plan (1) LORENZO (acute kidney injury): (2) Acute hypoxic respiratory failure: PLAN: Plan 1. Acute hypoxic respiratory failure secondary to influenza A-patient will remain on Tamiflu and aerosol treatments #2 sepsis secondary to acute cystitis-patient is on vancomycin and Zosyn #3 elevated troponin secondary to demand ischemia-this probably resulted from respiratory failure #4 acute kidney injury-patient's baseline creatinine however is not definitely known, nephrology is participating in his care, labs will be monitored, patient is aware he may need dialysis and so is the patient's son. Total clinical time spent by myself addressing the patient's medical issues, reviewing all of his data, and collaborating with patient's care team: 35 minutes Charges/Coding Visit Charges Inpatient E&M: 54983 Subs Hosp L2
[2024-11-03] MEDS: Vancomycin Trough/Random Due 1 LAB MC (20:39)
[2024-11-03] MEDS: guaiFENesin 600 MG Tablet PO (20:39)
[2024-11-03] MEDS: Loperamide 2 MG Capsule 4 MG PO (20:39)
[2024-11-03] MEDS: Acetaminophen 325 MG Tablet 650 MG PO (20:39)
[2024-11-03 20:57] LABS: Vancomycin, Trough Level 30.3 ug/mL (5.0-15.0)
--- NOTE | 2024-11-03 21:15 | PCM.RX.CS ---
Consult Antibiotic Management Pharmacy has been consulted to manage selected antibiotic: Vancomycin Type of Intervention Type of Consult: Follow-up Labs Labs: Sodium 139 mmol/L (136-145) 11/03/24 02:05 Potassium 4.4 mmol/L (3.5-5.1) 11/03/24 02:05 Chloride 106 mmol/L (98-107) 11/03/24 02:05 Carbon Dioxide 20.0 mmol/L (21.0-32.0) L 11/03/24 02:05 Anion Gap 13 (5-15) 11/03/24 02:05 BUN 62 mg/dL (7-18) H 11/03/24 02:05 Creatinine 5.29 mg/dL (0.70-1.30) H 11/03/24 02:05 Est GFR (MDRD) Af Amer 14 mL/min (>60) L 11/03/24 02:05 Est GFR (MDRD) Non-Af 11 mL/min (>60) L 11/03/24 02:05 BUN/Creatinine Ratio 11.7 RATIO (10-20) 11/03/24 02:05 Glucose 119 mg/dL (74-106) H 11/03/24 02:05 Vancomycin Trough 30.3 ug/mL (5.0-15.0) H 11/03/24 20:35 Microbiology Microbiology: Microbiology 11/01/24 13:00 Urine, Clean Catch Urine Culture - Final Klebsiella pneumoniae sp pneum 11/01/24 22:30 Stool Enteric Bacteriology - Final 11/01/24 22:30 Stool Clostridioides difficile (PCR) - Final 11/01/24 13:06 Mucosa - Nose SARS-CoV-2, Influenza & RSV (PCR) - Final Influenzae A Dosing Weight Weight used for dosin kg Estimated Creatinine Clearance Estimated Creatinine Clearance: 13.9 Goal Trough Goal Trough: 15-20 mcg/mL Pharmacy Plan for Drug Dosing Pharmacy Plan for Drug Dosing: Vancomycin trough level, drawn 23hrs post-dose, was high at 30.3. This accompanies a significant increase in SCr (3.25 to 5.29). Will suspend current vancomycin dosing. A random level will be drawn in a.m. to determine further orders. Pharmacy Service will continue to monitor and adjust dosing as required. Follow-Up Labs Follow-Up Labs: Trough: Vancomycin (random) Date/Time Labs Ordered Labs to be done on [date and time ordered]: 11/04/24 @0600 (random)
--- NOTE | 2024-11-03 23:59 | CPS ---
Patient refused PAP therapy for night time use.
[2024-11-04] VITALS (21 sets, daily range): BP systolic 117–160; BP diastolic 63–84; PULSE 67–113; RESP 16–26; TEMP 37.2–37.6; O2SAT 95–99; BMI 38.3
[2024-11-04] MEDS: Ipratropium/Albuterol Sulfate 3 ML AMPUL.NEB INHALATION ×4 (02:56→20:11)
[2024-11-04] MEDS: Ondansetron 4 MG/2 ML Vial IV (03:10)
[2024-11-04] MEDS: 0.9% Saline Lock 10 ML Syringe IV ×2 (03:10→05:11)
[2024-11-04 03:41] LABS: Absolute Lymphocyte Count 1.71 X10^3/uL (0.83-4.51); Absolute Neutrophil Count 23.9 X10^3/uL (2.0-7.7); Basophil# 0.07 X10^3/uL; Basophil% 0.3 % (0-1); Eosinophil# 0.01 X10^3/uL; Hematocrit 35.6 % (40-54); Hemoglobin 12.4 g/dL (13.0-16.5); Lymphocyte # 1.71 X10^3/ul (0.83-4.51); Lymphocyte % 6.4 % (19-41); Mean Corp Hgb Conc 34.8 g/dL (32-36); Mean Corpuscular Hgb 33.7 pg (27.0-32.0); Mean Corpuscular Volume 96.7 fL (80-94); Mean Platelet Vol. 11.3 fl (6.2-12.0); Monocyte# 0.92 X10^3/uL; Monocyte% 3.4 % (0-10); NRBC Flagged by Analyzer 0 % (0-5); Neutrophil # 23.88 X10^3/uL (2.7-7.7); Neutrophil % 88.9 % (47-70); POSITIVE DIFFERENTIAL YES; Platelet Count 126 K/mm3 (150-450); RBC Distribution Width CV 12.9 % (11.6-14.6); RBC Distribution Width SD 46.7 fl (35.1-43.9); Red Blood Count 3.68 M/mm3 (4.6-6.2); White Blood Count 26.9 K/mm3 (4.4-11.0)
[2024-11-04 03:56] LABS: Anion Gap 15 (5-15); BUN 82 mg/dL (7-18); BUN/Creat Ratio 13.2 RATIO (10-20); Calcium,Total 8.2 mg/dL (8.5-10.1); Chloride 104 mmol/L (98-107); Creatinine, Serum 6.19 mg/dL (0.70-1.30); EST Glomerular Filtration Rate 9 mL/min (>60); Est Glom Filt Rate - Afr Amer 11 mL/min (>60); Estimated Creatinine Clearance 11.88 ml/min; Glucose 126 mg/dL (74-106); Potassium 3.8 mmol/L (3.5-5.1); Sodium Level 135 mmol/L (136-145)
[2024-11-04 03:58] LABS: Differential Indicated SCAN CRITERIA MET
[2024-11-04] MEDS: Nystatin Powder 15gm Bottle 1 APPLIC TOPICAL ×3 (05:11→20:56)
[2024-11-04] MEDS: Vancomycin Trough/Random Due 1 LAB MC (05:11)
[2024-11-04] MEDS: Piperacil/Tazobactam 3.375 GM in 0.9% Normal Saline (50mL MB+) 50 ML IV ×3 (05:11→20:57)
[2024-11-04 05:18] LABS: Differential Comment SCANNED
[2024-11-04 05:58] LABS: Vancomycin, Random Level 28.5 ug/mL (0.0-15.0)
--- NOTE | 2024-11-04 06:25 | PHA.PHARE_ITS ---
Consult Antibiotic Management Pharmacy has been consulted to manage selected antibiotic: Vancomycin Type of Intervention Type of Consult: Follow-up Labs Labs: Sodium 135 mmol/L (136-145) L 11/04/24 03:20 Potassium 3.8 mmol/L (3.5-5.1) 11/04/24 03:20 Chloride 104 mmol/L (98-107) 11/04/24 03:20 Carbon Dioxide 17.0 mmol/L (21.0-32.0) L 11/04/24 03:20 Anion Gap 15 (5-15) 11/04/24 03:20 BUN 82 mg/dL (7-18) H 11/04/24 03:20 Creatinine 6.19 mg/dL (0.70-1.30) H 11/04/24 03:20 Est GFR (MDRD) Af Amer 11 mL/min (>60) L 11/04/24 03:20 Est GFR (MDRD) Non-Af 9 mL/min (>60) L 11/04/24 03:20 BUN/Creatinine Ratio 13.2 RATIO (10-20) 11/04/24 03:20 Glucose 126 mg/dL (74-106) H 11/04/24 03:20 Vancomycin Trough 30.3 ug/mL (5.0-15.0) H 11/03/24 20:35 Random Vancomycin 28.5 ug/mL (0.0-15.0) H 11/04/24 05:15 Microbiology Microbiology: Microbiology 11/01/24 13:00 Urine, Clean Catch Urine Culture - Final Klebsiella pneumoniae sp pneum 11/01/24 22:30 Stool Enteric Bacteriology - Final 11/01/24 22:30 Stool Clostridioides difficile (PCR) - Final 11/01/24 13:06 Mucosa - Nose SARS-CoV-2, Influenza & RSV (PCR) - Final Influenzae A Dosing Weight Weight used for dosin kg Estimated Creatinine Clearance Estimated Creatinine Clearance: 12 Goal Trough Goal Trough: 15-20 mcg/mL Pharmacy Plan for Drug Dosing Pharmacy Plan for Drug Dosing: Random vancomycin level drawn 11/04/24 was still high at 28.5. This accompanies further increase in SCr to 6.19. Will continue to hold vanco dosing and draw a nother random level 11/06/24. Pharmacy Service will continue to monitor and adjust dosing as required. Follow-Up Labs Follow-Up Labs: Trough: Vancomycin (random) Date/Time Labs Ordered Labs to be done on [date and time ordered]: 11/06/24 @0600 (random)
--- NOTE | 2024-11-04 07:29 | PN.CC_ITS ---
Assessment & Plan Assessment/Plan (1) Sepsis: (2) Acute hypoxic respiratory failure: (3) Type 2 acute myocardial infarction: (4) Influenza A: PLAN: Plan RECOMMENDATIONS: 1. Supplemental oxygen to maintain saturations at or above 90%. 2. Continue Tamiflu as ordered. 3. Continue empiric antibiotics. 4. Holding pharmacologic DVT prophylaxis due to hematuria 5. Encourage incentive spirometer use and mobilize patient as tolerated. IMPRESSIONS: 1. Sepsis The patient presented to the hospital with sepsis due to suspected UTI with influenza A infection, with acute sepsis related organ dysfunction as evidenced by acute respiratory failure requiring noninvasive positive pressure ventilatory support, lactic acidemia and acute kidney injury. The patient did receive sepsis fluids, but remains otherwise hemodynamically stable. Continue supportive care with empiric antibiotics and Tamiflu. 2. Acute on chronic kidney disease Clinical concern for ATN in the setting of sepsis. Renal ultrasound was largely unremarkable. Continue current supportive measures while avoiding nephrotoxic medications. Nephrology is currently following to assist with medical management. 3. Acute hypoxemic respiratory failure Most likely secondary to influenza A infection. While the patient was initially placed on BiPAP therapy, he has since been weaned to nasal cannula oxygen. Lower extremity Doppler studies were negative for PE. Continue current supportive care with supplemental oxygen to maintain saturations at or above 90% along with Tamiflu and empiric antibiotics. 4. NSTEMI Most likely secondary to demand ischemia in the setting of sepsis and respiratory failure. Echocardiogram was unremarkable. 5. History of obesity/hypertension/hyperlipidemia/osteoarthritis Complicates care, management, recovery and prognosis. Continue home medications as indicated. Encourage incentive spirometer use and mobilize patient as tolerated. This note was generated with tab ticketbroker dictation software. It may contain incorrect words, spelling, and punctuation that were not noted in checking the note before signing. Subjective Subjective The patient was seen and examined at the bedside this morning. Events from the last 24 hours have been reviewed. The patient is currently afebrile, hemodynamically stable and maintaining appropriate oxygen saturations on 4 L/min via nasal cannula. White blood cell count has improved to 27,000. Platelet count has improved to 126,000. Chemistry profile was notable for a bicarbonate of 17, BUN of 82 and creatinine of 6.19. Objective Data Objective Data The patient's most recent lab work, culture data and imaging studies have all been personally reviewed. Surface echocardiogram demonstrated normal LV size and function with an ejection fraction of 55%. Lower extremity Doppler study was negative for DVT. Respiratory panel was positive for influenza A. Urine culture is currently demonstrating growth of Klebsiella pneumonia. Blood cultures have not demonstrated any growth to date. Vital Signs: Vital Signs Temp Pulse Resp BP Pulse Ox O2 Del Method O2 Flow Rate 99.0 F 97 26 H 160/84 H 97 Nasal Cannula 4 11/04/24 07:00 11/04/24 07:00 11/04/24 07:00 11/04/24 07:00 11/04/24 07:00 11/04/24 07:00 11/04/24 07:00 FiO2 30 11/03/24 04:00 Oxygen Flow Rate (L/min) 4 Oxygen Delivery Method Nasal Cannula Weight: 237 lb 10.533 oz Body Mass Index (BMI) 38.3 Intake & Output: Intake and Output for Last 24 Hours 11/02/24 11/03/24 11/04/24 23:59 23:59 23:59 Intake Total 1785.4833 / 1785.4833 350 / 650 750 / 750 Output Total 325 / 325 450 / 600 400 / 400 Balance 1460.4833 / 1460.4833 -100 / 50 350 / 350 Lab / Micro Data Attestation: I reviewed the patient's lab results. 11/04/24 03:20 11/04/24 03:20 Labs: Laboratory Results - last 24 hr 11/03/24 02:05: Diff Path Review Reviewed 11/03/24 20:35: Vancomycin Trough 30.3 H 11/04/24 03:20: WBC 26.9 H, RBC 3.68 L, Hgb 12.4 L, Hct 35.6 L, MCV 96.7 H, MCH 33.7 H, MCHC 34.8, RDW Std Deviation 46.7 H, RDW Coeff of Whitney 12.9, Plt Count 126 L, MPV 11.3, Immature Gran % (Auto) 1.000 H, Neut % (Auto) 88.9 H, Lymph % (Auto) 6.4 L, [place] % (Auto) 3.4, Eos % (Auto) 0.0, Baso % (Auto) 0.3, Absolute Neuts (auto) 23.9 H, Absolute Lymphs (auto) 1.71, Nucleated RBC % 0, Differential Comment SCANNED, Sodium 135 L, Potassium 3.8, Chloride 104, Carbon Dioxide 17.0 L, Anion Gap 15, BUN 82 H, Creatinine 6.19 H, Estim Creat Clear Calc 11.88, Est GFR (MDRD) Af Amer 11 L, Est GFR (MDRD) Non-Af 9 L, BUN/Creatinine Ratio 13.2, Glucose 126 H, Calcium 8.2 L 11/04/24 05:15: Random Vancomycin 28.5 H Micro: Microbiology 11/01/24 13:00 Urine, Clean Catch Urine Culture - Final Klebsiella pneumoniae sp pneum 11/01/24 22:30 Stool Enteric Bacteriology - Final 11/01/24 22:30 Stool Clostridioides difficile (PCR) - Final 11/01/24 13:06 Mucosa - Nose SARS-CoV-2, Influenza & RSV (PCR) - Final Influenzae A ABG Data ABG results: ABG 11/02/24 08:50 Specimen Type ART Sample Site R Radial pH 7.31 L Bicarbonate Actual 13.4 L Total CO2 14 Base Excess -13 L O2 Saturation 91 L O2 % 40.0 ABG pCO2 27.0 L ABG pO2 64 L Ahsan Test Positive Respiration Rate 12 O2 Delivery Device BiPAP Vent Mode Not entered POC PEEP 8 Radiography Diagnostic Testing: Radiology Impression Echocardiogram 11/01/24 18:08 Interpretation Summary The estimated ejection fraction is 55 %. No evidence for diastolic dysfunction. Trivial pericardial effusion. Ordering Physician: Sammy Green Performed By: Milind Martinez RCS Venous Doppler Study 11/01/24 19:06 Interpretation Summary Deep veins of the lower extremities are bilaterally patent and compressible segmentally. There is no evidence of deep vein thrombosis on either side. Valvular competence appears intact within the proximal deep venous systems bilaterally. The great saphenous veins appear bilaterally patent and compressible segmentally. Ordering Physician: Sammy Green Referring Physician: Bari Francisco Performed By: Jason Godinez, RVT Physical Exam Const alert, oriented x3 and no apparent distress General Appearance: ill appearing HEENT normocephalic, head/scalp atraumatic and moist oral mucous membranes Eyes PERRL, EOMs intact bilaterally and conjunctivae normal Neck supple General: trachea midline Chest inspection of chest normal Resp Auscultation: diminished lung sounds; Negative for rales, rhonchi or wheezes Cardio regular rate and regular rhythm GI normal to inspection, nondistended, normoactive bowel sounds Extremity no clubbing, cyanosis or edema Skin no rashes or lesions noted Neuro CN's II-XII intact bilaterally, moves all extremities and no focal motor deficits Psych Mood & Affect: flat affect Charges/Coding Visit Charges Inpatient E&M: 19244 Subs Hosp L2
[2024-11-04] MEDS: Aspirin 81 MG TAB.CHEW PO (08:13)
[2024-11-04] MEDS: Metoprolol Tartrate 25 MG Tablet PO ×2 (08:13→20:57)
[2024-11-04] MEDS: Oseltamivir Phosphate 30 MG Capsule PO (08:13)
[2024-11-04] MEDS: Atorvastatin Calcium 10 MG Tablet PO (08:13)
[2024-11-04] MEDS: guaiFENesin 600 MG Tablet PO (08:14)
--- NOTE | 2024-11-04 10:24 | CASEMGMT ---
Dr. Prince states that the pt will be here through the weekend. Per ICU rounds, pt has been doing OK with therapy but the pt gets worn out quickly. CM to follow on Thursday for OP HD, HH, OP Tx, and/or home oxygen needs.
--- NOTE | 2024-11-04 13:02 | PCM.PN.REN ---
Subjective Subjective no new complaints. feels better. urine output is better. some acidosis. potassium is ok. Bp is ok. Objective Data Objective Data Vital Signs: Vital Signs Temp Pulse Resp BP Pulse Ox O2 Del Method O2 Flow Rate 99.2 F H 67 17 117/81 H 99 Nasal Cannula 4 11/04/24 12:00 11/04/24 12:00 11/04/24 12:00 11/04/24 12:00 11/04/24 12:00 11/04/24 12:00 11/04/24 12:00 FiO2 30 11/03/24 04:00 Oxygen Flow Rate (L/min) 4 Oxygen Delivery Method Nasal Cannula Weight: 107.8 kg Body Mass Index (BMI) 38.3 Intake & Output: Intake and Output for Last 24 Hours 11/02/24 11/03/24 11/04/24 23:59 23:59 23:59 Intake Total 1785.4833 / 1785.4833 350 / 650 800 / 800 Output Total 325 / 325 450 / 600 750 / 750 Balance 1460.4833 / 1460.4833 -100 / 50 50 / 50 Lab / Micro Data 11/04/24 03:20 11/04/24 03:20 Labs: Laboratory Results - last 24 hr 11/03/24 02:05: Diff Path Review Reviewed 11/03/24 20:35: Vancomycin Trough 30.3 H 11/04/24 03:20: WBC 26.9 H, RBC 3.68 L, Hgb 12.4 L, Hct 35.6 L, MCV 96.7 H, MCH 33.7 H, MCHC 34.8, RDW Std Deviation 46.7 H, RDW Coeff of Whitney 12.9, Plt Count 126 L, MPV 11.3, Immature Gran % (Auto) 1.000 H, Neut % (Auto) 88.9 H, Lymph % (Auto) 6.4 L, [place] % (Auto) 3.4, Eos % (Auto) 0.0, Baso % (Auto) 0.3, Absolute Neuts (auto) 23.9 H, Absolute Lymphs (auto) 1.71, Nucleated RBC % 0, Differential Comment SCANNED, Sodium 135 L, Potassium 3.8, Chloride 104, Carbon Dioxide 17.0 L, Anion Gap 15, BUN 82 H, Creatinine 6.19 H, Estim Creat Clear Calc 11.88, Est GFR (MDRD) Af Amer 11 L, Est GFR (MDRD) Non-Af 9 L, BUN/Creatinine Ratio 13.2, Glucose 126 H, Calcium 8.2 L 11/04/24 05:15: Random Vancomycin 28.5 H Micro: Microbiology 11/01/24 13:00 Blood Culture (Wb) - Right Hand Blood Culture - Preliminary No growth in 48 hours. 11/01/24 12:50 Blood Culture (Wb) - Anticubital Left Blood Culture - Preliminary No growth in 48 hours. 11/01/24 13:00 Urine, Clean Catch Urine Culture - Final Klebsiella pneumoniae sp pneum 11/01/24 22:30 Stool Enteric Bacteriology - Final 11/01/24 22:30 Stool Clostridioides difficile (PCR) - Final 11/01/24 13:06 Mucosa - Nose SARS-CoV-2, Influenza & RSV (PCR) - Final Influenzae A Physical Exam Narrative Alert awake oriented x 3 no obvious distress no pallor no icterus no JVD s1s2 no murmurs lungs Rales present abdomen soft no organomegaly no edema no cyanosis winters + Assessment & Plan Assessment/Plan (1) LORENZO (acute kidney injury): PLAN: It appears he has CKD stage IIIb. Over the last several years, creatinine has ranged between 1.6-1.8 as high as 2.0. Last known creatinine is 1.9 from May 2023. It is possible that his baseline is even higher. This admission he came in with creatinine of 2.9, creatinine is worsening Renal ultrasound without any hydronephrosis Urine analysis with leukocytes, cells, consistent with UTI. Urine culture positive for E. coli Other events including influenza pneumonia, likely superimposed bacterial pneumonia, severe sepsis, lactic acidosis. Has been treated for sepsis. Blood pressure acceptable. Acidosis. Anion gap elevated at 17. Likely due to a combination of lactic acidosis and acute renal failure. LORENZO is likely related to ATN in the setting of sepsis. Renal function worse however urine output is better. clinically better. WBC is better. Temperature is improved. hopefully will recover. hold off on HD one more day.
--- NOTE | 2024-11-04 14:04 | PCM.PN.HOSP ---
Reason for Visit Reason for Visit: Diagnoses Sepsis, unspecified organism (11/01/24) Myocardial infarction type 2 (11/01/24) Influenza due to other identified influenza virus with other respiratory manifestations (11/01/24) Acute respiratory failure with hypoxia (11/01/24) Acute kidney failure, unspecified (11/01/24) Subjective Subjective Patient was seen and examined today, his creatinine is slightly worse today but nephrology has decided to hold off on dialysis. Patient's urine culture grew out Klebsiella pneumoniae. White blood cell count is better today. Objective Data Objective Data Vital Signs: Vital Signs Temp Pulse Resp BP Pulse Ox O2 Del Method O2 Flow Rate 99.2 F H 76 18 117/81 H 99 Nasal Cannula 4 11/04/24 12:00 11/04/24 13:27 11/04/24 13:27 11/04/24 12:00 11/04/24 12:00 11/04/24 13:53 11/04/24 13:53 FiO2 30 11/03/24 04:00 Oxygen Flow Rate (L/min) 4 Oxygen Delivery Method Nasal Cannula Weight: 107.8 kg Body Mass Index (BMI) 38.3 Intake & Output: Intake and Output for Last 24 Hours 11/02/24 11/03/24 11/04/24 23:59 23:59 23:59 Intake Total 1785.4833 / 1785.4833 350 / 650 800 / 800 Output Total 325 / 325 450 / 600 750 / 750 Balance 1460.4833 / 1460.4833 -100 / 50 50 / 50 Lab / Micro Data 11/04/24 03:20 11/04/24 03:20 Labs: Laboratory Results - last 24 hr 11/03/24 02:05: Diff Path Review Reviewed 11/03/24 20:35: Vancomycin Trough 30.3 H 11/04/24 03:20: WBC 26.9 H, RBC 3.68 L, Hgb 12.4 L, Hct 35.6 L, MCV 96.7 H, MCH 33.7 H, MCHC 34.8, RDW Std Deviation 46.7 H, RDW Coeff of Whitney 12.9, Plt Count 126 L, MPV 11.3, Immature Gran % (Auto) 1.000 H, Neut % (Auto) 88.9 H, Lymph % (Auto) 6.4 L, [place] % (Auto) 3.4, Eos % (Auto) 0.0, Baso % (Auto) 0.3, Absolute Neuts (auto) 23.9 H, Absolute Lymphs (auto) 1.71, Nucleated RBC % 0, Differential Comment SCANNED, Sodium 135 L, Potassium 3.8, Chloride 104, Carbon Dioxide 17.0 L, Anion Gap 15, BUN 82 H, Creatinine 6.19 H, Estim Creat Clear Calc 11.88, Est GFR (MDRD) Af Amer 11 L, Est GFR (MDRD) Non-Af 9 L, BUN/Creatinine Ratio 13.2, Glucose 126 H, Calcium 8.2 L 11/04/24 05:15: Random Vancomycin 28.5 H Micro: Microbiology 11/01/24 13:00 Blood Culture (Wb) - Right Hand Blood Culture - Preliminary No growth in 48 hours. 11/01/24 12:50 Blood Culture (Wb) - Anticubital Left Blood Culture - Preliminary No growth in 48 hours. 11/01/24 13:00 Urine, Clean Catch Urine Culture - Final Klebsiella pneumoniae sp pneum 11/01/24 22:30 Stool Enteric Bacteriology - Final 11/01/24 22:30 Stool Clostridioides difficile (PCR) - Final 11/01/24 13:06 Mucosa - Nose SARS-CoV-2, Influenza & RSV (PCR) - Final Influenzae A Physical Exam Narrative alert, oriented x3 and no apparent distress General Appearance: cooperative, well kempt and well developed Orientation / Consciousness: awake, oriented to person, oriented to place and oriented to time HEENT normocephalic, head/scalp atraumatic and moist oral mucous membranes Eyes PERRL, EOMs intact bilaterally and conjunctivae normal Neck supple, no JVD, thyroid normal and no carotid bruits General: trachea midline Resp normal respiratory effort and no retractions Resp Narrative: There are expiratory wheezes noted bilaterally Auscultation: wheezes; Negative for rales or rhonchi Cardio regular rate, regular rhythm, S1 normal heart sound, S2 normal heart sound, no murmurs, no rub and no gallops GI normal to inspection, nondistended, normoactive bowel sounds, soft to palpation, non-tender and non-distended Extremity no clubbing, cyanosis or edema Skin no rashes or lesions noted General Skin Exam: no breakdown Neuro oriented x3, CN's II-XII intact bilaterally, moves all extremities, no focal motor deficits and no sensory deficits noted Sensorium / Orientation: awake and alert Speech: speech normal Psych affect normal Assessment & Plan Assessment/Plan (1) Sepsis: (2) LORENZO (acute kidney injury): (3) Acute hypoxic respiratory failure: PLAN: Plan 1. Acute hypoxic respiratory failure secondary to influenza A-patient will remain on Tamiflu and aerosol treatments #2 sepsis secondary to acute cystitis from Klebsiella pneumoniae-patient is on vancomycin and Zosyn #3 elevated troponin secondary to demand ischemia-this probably resulted from respiratory failure #4 acute kidney injury-patient's baseline creatinine however is not definitely known, nephrology is participating in his care, labs will be monitored, patient is aware he may need dialysis and so is the patient's son. Total clinical time spent by myself addressing the patient's medical issues, reviewing all of his data, and collaborating with patient's care team: 35 minutes Charges/Coding Visit Charges Inpatient E&M: 38412 Subs Hosp L2
[2024-11-04] MEDS: Famotidine 20 MG Tablet PO (15:37)
[2024-11-05] VITALS (16 sets, daily range): BP systolic 118–137; BP diastolic 64–84; PULSE 68–111; RESP 14–23; TEMP 36.3–37.3; O2SAT 94–100
[2024-11-05] MEDS: Ipratropium/Albuterol Sulfate 3 ML AMPUL.NEB INHALATION ×4 (02:01→19:57)
[2024-11-05] MEDS: Nystatin Powder 15gm Bottle 1 APPLIC TOPICAL ×3 (05:21→21:23)
[2024-11-05] MEDS: Piperacil/Tazobactam 3.375 GM in 0.9% Normal Saline (50mL MB+) 50 ML IV ×3 (05:21→21:23)
[2024-11-05 08:31] LABS: Anion Gap 14 (5-15); BUN 87 mg/dL (7-18); BUN/Creat Ratio 14.8 RATIO (10-20); Calcium,Total 8.5 mg/dL (8.5-10.1); Chloride 109 mmol/L (98-107); Creatinine, Serum 5.86 mg/dL (0.70-1.30); EST Glomerular Filtration Rate 10 mL/min (>60); Est Glom Filt Rate - Afr Amer 12 mL/min (>60); Estimated Creatinine Clearance 12.54 ml/min; Glucose 97 mg/dL (74-106); Potassium 3.6 mmol/L (3.5-5.1); Sodium Level 138 mmol/L (136-145)
[2024-11-05] MEDS: Metoprolol Tartrate 25 MG Tablet PO ×2 (09:39→21:26)
[2024-11-05] MEDS: Famotidine 20 MG Tablet PO (09:39)
[2024-11-05] MEDS: Atorvastatin Calcium 10 MG Tablet PO (09:39)
[2024-11-05] MEDS: Aspirin 81 MG TAB.CHEW PO (09:39)
[2024-11-05] MEDS: Oseltamivir Phosphate 30 MG Capsule PO (09:39)
--- NOTE | 2024-11-05 10:20 | PN.HOSP_ITS ---
Reason for Visit Reason for Visit: Diagnoses Sepsis, unspecified organism (11/01/24) Myocardial infarction type 2 (11/01/24) Influenza due to other identified influenza virus with other respiratory manifestations (11/01/24) Acute respiratory failure with hypoxia (11/01/24) Acute kidney failure, unspecified (11/01/24) Subjective Subjective Patient was seen and examined today, his creatinine has improved. Patient is in no distress at this time Objective Data Objective Data Vital Signs: Vital Signs Temp Pulse Resp BP Pulse Ox O2 Del Method O2 Flow Rate 97.6 F L 105 H 18 135/71 H 100 Nasal Cannula 4 11/05/24 07:43 11/05/24 09:39 11/05/24 07:50 11/05/24 09:39 11/05/24 07:50 11/05/24 07:50 11/05/24 07:50 FiO2 30 11/03/24 04:00 Oxygen Flow Rate (L/min) 4 Oxygen Delivery Method Nasal Cannula Weight: 107.8 kg Body Mass Index (BMI) 38.3 Intake & Output: Intake and Output for Last 24 Hours 11/03/24 11/04/24 11/05/24 23:59 23:59 23:59 Intake Total 350 / 650 1250 / 1250 550 / 550 Output Total 450 / 600 975 / 975 850 / 850 Balance -100 / 50 275 / 275 -300 / -300 Lab / Micro Data 11/04/24 03:20 11/05/24 08:05 Labs: Laboratory Results - last 24 hr 11/05/24 08:05: Sodium 138, Potassium 3.6, Chloride 109 H, Carbon Dioxide 15.0 L , Anion Gap 14, BUN 87 H, Creatinine 5.86 H, Estim Creat Clear Calc 12.54, Est GFR (MDRD) Af Amer 12 L, Est GFR (MDRD) Non-Af 10 L, BUN/Creatinine Ratio 14.8, Glucose 97, Calcium 8.5 Micro: Microbiology 11/01/24 13:00 Blood Culture (Wb) - Right Hand Blood Culture - Preliminary No growth in 48 hours. 11/01/24 12:50 Blood Culture (Wb) - Anticubital Left Blood Culture - Preliminary No growth in 48 hours. 11/01/24 13:00 Urine, Clean Catch Urine Culture - Final Klebsiella pneumoniae sp pneum 11/01/24 22:30 Stool Enteric Bacteriology - Final 11/01/24 22:30 Stool Clostridioides difficile (PCR) - Final 11/01/24 13:06 Mucosa - Nose SARS-CoV-2, Influenza & RSV (PCR) - Final Influenzae A Physical Exam Narrative alert, oriented x3 and no apparent distress General Appearance: cooperative, well kempt and well developed Orientation / Consciousness: awake, oriented to person, oriented to place and oriented to time HEENT normocephalic, head/scalp atraumatic and moist oral mucous membranes Eyes PERRL, EOMs intact bilaterally and conjunctivae normal Neck supple, no JVD, thyroid normal and no carotid bruits General: trachea midline Resp normal respiratory effort and no retractions Resp Narrative: There are expiratory wheezes noted bilaterally Auscultation: wheezes; Negative for rales or rhonchi Cardio regular rate, regular rhythm, S1 normal heart sound, S2 normal heart sound, no murmurs, no rub and no gallops GI normal to inspection, nondistended, normoactive bowel sounds, soft to palpation, non-tender and non-distended Extremity no clubbing, cyanosis or edema Skin no rashes or lesions noted General Skin Exam: no breakdown Neuro oriented x3, CN's II-XII intact bilaterally, moves all extremities, no focal motor deficits and no sensory deficits noted Sensorium / Orientation: awake and alert Speech: speech normal Psych affect normal Assessment & Plan Assessment/Plan (1) Sepsis: (2) LORENZO (acute kidney injury): (3) Acute hypoxic respiratory failure: PLAN: Plan 1. Acute hypoxic respiratory failure secondary to influenza A-patient will remain on Tamiflu and aerosol treatments #2 sepsis secondary to acute cystitis from Klebsiella pneumoniae-I have decided to stop the patient's vancomycin and have him remain on Zosyn #3 elevated troponin secondary to demand ischemia-this probably resulted from respiratory failure #4 acute kidney injury-patient's baseline creatinine however is not definitely known, nephrology is participating in his care, labs will be monitored, patient is aware he may need dialysis and so is the patient's son. Total clinical time spent by myself addressing the patient's medical issues, reviewing all of his data, and collaborating with patient's care team: 35 minutes Charges/Coding Visit Charges Inpatient E&M: 25839 Subs Hosp L2
[2024-11-05] MEDS: 0.9% Normal Saline (100mL Bag) 100 ML 15 ML IV (10:44)
--- NOTE | 2024-11-05 14:08 | PN.CC_ITS ---
Objective Data Objective Data Vital Signs: Vital Signs Last response 3 Temperature 37.2 C 11/05/24 13:00 Temperature Source Core 11/05/24 13:00 Pulse Rate 103 H 11/05/24 13:00 Pulse Strength Weak (1+) 11/05/24 10:00 Respiratory Rate 22 H 11/05/24 13:00 Respiratory Effort Normal, Non-Labored 11/05/24 13:00 Respiratory Depth Normal 11/05/24 07:38 Respiratory Pattern Normal 11/05/24 07:38 Blood Pressure 118/65 11/05/24 13:00 Blood Pressure Mean 82 11/05/24 13:00 Blood Pressure Source Monitor 11/05/24 12:00 Blood Pressure Position Semi-Fowlers 11/05/24 12:00 Blood Pressure Location Right Arm 11/05/24 12:00 Pulse Ox 97 11/05/24 13:00 Oxygen Delivery Method Nasal Cannula 11/05/24 13:00 Oxygen Flow Rate (L/min) 2 11/05/24 13:00 Fraction of Inspired Oxygen (FIO2) 30 11/03/24 04:00 I&O: I&O Last 24 Hours 3 11/04/24 11/05/24 11/05/24 23:59 11:59 23:59 Intake Total 450 / 1250 550 / 790 240 / 790 Output Total 575 / 975 850 / 1425 575 / 1425 Balance -125 / 275 -300 / -635 -335 / -635 I&O: Total Stay 3 11/01/24 12:13 thru 11/05/24 12:00 Intake Total 7032.1533 Output Total 3925 Balance 3107.1533 Current Meds Ordered / Administered: Current meds ordered / Administered 3 Generic Name Dose Route Start Last Admin Trade Name Freq PRN Reason Stop Dose Admin Acetaminophen 650 mg 11/01/24 17:35 11/03/24 20:39 Acetaminophen 325 Mg Tablet PO 650 mg Q6H PRN PRN Administration Pain 1-10 Or Fever>100.7 Albuterol/Ipratropium 3 ml 11/02/24 18:00 11/05/24 12:46 Ipratropium/Albuterol Sulfate 3 Ml Ampul.Neb INHALATION 3 ml Q6H.RT JULIANE Administration Aspirin 81 mg 11/02/24 08:00 11/05/24 09:39 Aspirin 81 Mg Tab.Chew PO 81 mg BREAKFAST JULIANE Administration Atorvastatin Calcium 10 mg 11/02/24 10:00 11/05/24 09:39 Atorvastatin Calcium 10 Mg Tablet PO 10 mg DAILY JULIANE Administration Famotidine 20 mg 11/04/24 14:35 11/05/24 09:39 Famotidine 20 Mg Tablet PO 20 mg DAILY JULIANE Administration Heparin Sodium (Porcine) 0 unit 11/01/24 19:15 Heparin Injection (Vial) 5,000 Unit/Ml Vial IV UD PRN dose adjustment Protocol Sodium Chloride 100 mls @ 15 mls/hr 11/01/24 17:38 11/05/24 10:44 IV 15 mls/hr .Q6H40M PRN Administration SALINE FLUSH Sodium Chloride 100 mls @ 15 mls/hr 11/01/24 17:38 IV .Q6H40M PRN Saline Flush Sodium Chloride 100 mls @ 15 mls/hr 11/01/24 17:38 IV .Q6H40M PRN Additional IVPB Infusion Piperacillin Sod/Tazobactam 50 mls @ 12.5 mls/hr 11/01/24 22:00 11/05/24 13:36 Sod 3.375 gm/ Sodium Chloride IV 12.5 mls/hr Q8 JULIANE Administration Melatonin 3 mg 11/01/24 17:35 Melatonin 3 Mg Tablet PO QHS PRN PRN INSOMNIA Metoprolol Tartrate 25 mg 11/01/24 22:00 11/05/24 09:39 Metoprolol Tartrate 25 Mg Tablet PO 25 mg BID JULIANE Administration Protocol Nystatin 1 applic 11/02/24 06:00 11/05/24 13:37 Nystatin Powder 15gm Bottle TOPICAL 1 applic TID JULIANE Administration Protocol Ondansetron HCl 4 mg 11/01/24 17:35 11/04/24 03:10 Ondansetron 4 Mg/2 Ml Vial IV 4 mg Q8H PRN PRN Administration NAUSEA/VOMITING Sodium Chloride 10 - 40 ml 11/01/24 17:38 11/04/24 05:11 0.9% Saline Lock 10 Ml Syringe IV 10 ml UD PRN Administration SALINE FLUSH Throat Lozenges 1 lozenge 11/03/24 09:05 11/03/24 11:10 Benzocaine/Menthol 1 Lozenge MUCOUS MEM 1 lozenge Q2H PRN PRN Administration COUGH Lab / Micro Data 11/04/24 03:20 11/05/24 08:05 Labs: Laboratory Results - last 24 hr 11/05/24 08:05: Sodium 138, Potassium 3.6, Chloride 109 H, Carbon Dioxide 15.0 L , Anion Gap 14, BUN 87 H, Creatinine 5.86 H, Estim Creat Clear Calc 12.54, Est GFR (MDRD) Af Amer 12 L, Est GFR (MDRD) Non-Af 10 L, BUN/Creatinine Ratio 14.8, Glucose 97, Calcium 8.5 Assessment and Plan . Assessment and plan: HPI Patient seen and examined Chart and data reviewed Breathing 2 LPM O2 at rest Renal function poor, but stable UOP adequate Lab, CX, radiographs reviewed EXAM GEN NAD VS as above HEENT O2 N/C NECK supple COR RRR CHEST diminished ABD soft EXT minimal edema SKIN w/d RUSTAM NF ASSESSMENT 1. Dyspnea / hypoxemia 2. Influenza A infection 3. Advanced renal insufficiency 4. NAGMA 5. GNR UTI TREATMENT PLAN -supplemental O2 as needed -ABX -defer volume management to nephrology -VTE ppx Critical Care Time: 50 min The entirety of this encounter was done via Telemedicine
[2024-11-06] VITALS (13 sets, daily range): BP systolic 106–156; BP diastolic 64–78; PULSE 80–109; RESP 16–20; TEMP 36.4–36.8; O2SAT 94–97; BMI 37.3
[2024-11-06] MEDS: Nystatin Powder 15gm Bottle 1 APPLIC TOPICAL ×3 (05:38→21:04)
[2024-11-06] MEDS: Piperacil/Tazobactam 3.375 GM in 0.9% Normal Saline (50mL MB+) 50 ML IV ×3 (05:39→21:06)
[2024-11-06] MEDS: Famotidine 20 MG Tablet PO (05:43)
[2024-11-06 06:33] LABS: Hematocrit 35.5 % (40-54); Mean Corp Hgb Conc 33.8 g/dL (32-36); Mean Corpuscular Hgb 33.5 pg (27.0-32.0); Mean Corpuscular Volume 99.2 fL (80-94); POSITIVE COUNT YES; POSITIVE MORPHOLOGY YES; Platelet Count 165 K/mm3 (150-450); RBC Distribution Width CV 12.7 % (11.6-14.6); RBC Distribution Width SD 46.2 fl (35.1-43.9); Red Blood Count 3.58 M/mm3 (4.6-6.2); White Blood Count 10.1 K/mm3 (4.4-11.0)
[2024-11-06 06:41] LABS: Differential Indicated MANUAL DIFF
[2024-11-06 07:10] LABS: Anion Gap 15 (5-15); BUN 83 mg/dL (7-18); BUN/Creat Ratio 15.9 RATIO (10-20); Calcium,Total 8.8 mg/dL (8.5-10.1); Chloride 110 mmol/L (98-107); Creatinine, Serum 5.21 mg/dL (0.70-1.30); EST Glomerular Filtration Rate 12 mL/min (>60); Est Glom Filt Rate - Afr Amer 14 mL/min (>60); Estimated Creatinine Clearance 13.91 ml/min; Glucose 111 mg/dL (74-106); Potassium 3.6 mmol/L (3.5-5.1); Sodium Level 140 mmol/L (136-145)
[2024-11-06] MEDS: Ipratropium/Albuterol Sulfate 3 ML AMPUL.NEB INHALATION ×3 (07:10→20:02)
[2024-11-06 07:50] LABS: Eosinophil 2 % (0-5); Lymphocyte 13 % (19-41); Metamyelocyte 1 % (0-1); Monocyte 8 % (0-10); Myelocyte 1 % (0-0); Neutrophil-Band 1 % (0-5); Neutrophil-Segmented 72 % (47-70); Promyelocyte 2 % (0-0); Reactive Lymphocyte 2+; Total Cells Counted 100 (MANUAL DIFF)
[2024-11-06 07:51] LABS: Platelet Estimate A (ADEQ)
[2024-11-06 07:52] LABS: Absolute Lymphocyte Count 1.31 X10^3/uL (0.83-4.51); Absolute Neutrophil Count 7.3 X10^3/uL (2.0-7.7)
[2024-11-06] MEDS: Aspirin 81 MG TAB.CHEW PO (08:22)
[2024-11-06] MEDS: Metoprolol Tartrate 25 MG Tablet PO ×2 (08:23→21:05)
[2024-11-06] MEDS: Mag Hydrox/Al Hydrox/Simeth 30 ML UDC PO (08:23)
[2024-11-06] MEDS: Atorvastatin Calcium 10 MG Tablet PO (08:23)
--- NOTE | 2024-11-06 12:33 | PCM.PN.HOSP ---
Reason for Visit Reason for Visit: Diagnoses Sepsis, unspecified organism (11/01/24) Myocardial infarction type 2 (11/01/24) Influenza due to other identified influenza virus with other respiratory manifestations (11/01/24) Acute respiratory failure with hypoxia (11/01/24) Acute kidney failure, unspecified (11/01/24) Subjective Subjective Patient was seen and examined today, he is on room air at the time my examination. Patient would like to go home when he is discharged from the hospital rather than to go to an extended care facility. Patient's creatinine is improved today at 5.21. Objective Data Objective Data Vital Signs: Vital Signs Temp Pulse Resp BP Pulse Ox O2 Del Method O2 Flow Rate 97.8 F 80 20 H 106/64 96 Room Air 2 11/06/24 08:22 11/06/24 08:23 11/06/24 08:22 11/06/24 08:23 11/06/24 11:55 11/06/24 08:22 11/05/24 20:12 FiO2 30 11/03/24 04:00 Oxygen Flow Rate (L/min) 2 Oxygen Delivery Method Room Air Weight: 105.007 kg Body Mass Index (BMI) 37.3 Intake & Output: Intake and Output for Last 24 Hours 11/04/24 11/05/24 11/06/24 23:59 23:59 23:59 Intake Total 1250 / 1250 940 / 1140 480 / 480 Output Total 975 / 975 1925 / 2175 250 / 250 Balance 275 / 275 -985 / -1035 230 / 230 Lab / Micro Data 11/06/24 05:25 11/06/24 05:25 Labs: Laboratory Results - last 24 hr 11/06/24 05:25: WBC 10.1, RBC 3.58 L, Hgb 12.0 L, Hct 35.5 L, MCV 99.2 H, MCH 33.5 H, MCHC 33.8, RDW Std Deviation 46.2 H, RDW Coeff of Whitney 12.7, Plt Count 165, MPV 11.0, Neut % (Auto) Not Reportable, Absolute Neuts (auto) 7.3, Absolute Lymphs (auto) 1.31, Total Counted 100, Neutrophils % (Manual) 72 H, Band Neutrophils % 1, Lymphocytes % (Manual) 13 L, Monocytes % (Manual) 8, Eosinophils % (Manual) 2, Metamyelocytes % 1, Myelocytes % 1 H, Promyelocytes % 2 H, Diff Path Review May foll, Reactive Lymphocytes 2+, Platelet Estimate A, Sodium 140, Potassium 3.6, Chloride 110 H, Carbon Dioxide 16.0 L, Anion Gap 15, BUN 83 H, Creatinine 5.21 H, Estim Creat Clear Calc 13.91, Est GFR (MDRD) Af Amer 14 L, Est GFR (MDRD) Non-Af 12 L, BUN/Creatinine Ratio 15.9, Glucose 111 H, Calcium 8.8 Micro: Microbiology 11/01/24 13:00 Blood Culture (Wb) - Right Hand Blood Culture - Preliminary No growth in 48 hours. 11/01/24 12:50 Blood Culture (Wb) - Anticubital Left Blood Culture - Preliminary No growth in 48 hours. 11/01/24 13:00 Urine, Clean Catch Urine Culture - Final Klebsiella pneumoniae sp pneum 11/01/24 22:30 Stool Enteric Bacteriology - Final 11/01/24 22:30 Stool Clostridioides difficile (PCR) - Final 11/01/24 13:06 Mucosa - Nose SARS-CoV-2, Influenza & RSV (PCR) - Final Influenzae A Physical Exam Narrative alert, oriented x3 and no apparent distress General Appearance: cooperative, well kempt and well developed Orientation / Consciousness: awake, oriented to person, oriented to place and oriented to time HEENT normocephalic, head/scalp atraumatic and moist oral mucous membranes Eyes PERRL, EOMs intact bilaterally and conjunctivae normal Neck supple, no JVD, thyroid normal and no carotid bruits General: trachea midline Resp normal respiratory effort and no retractions Resp Narrative: There are expiratory wheezes noted bilaterally Auscultation: wheezes; Negative for rales or rhonchi Cardio regular rate, regular rhythm, S1 normal heart sound, S2 normal heart sound, no murmurs, no rub and no gallops GI normal to inspection, nondistended, normoactive bowel sounds, soft to palpation, non-tender and non-distended Extremity no clubbing, cyanosis or edema Skin no rashes or lesions noted General Skin Exam: no breakdown Neuro oriented x3, CN's II-XII intact bilaterally, moves all extremities, no focal motor deficits and no sensory deficits noted Sensorium / Orientation: awake and alert Speech: speech normal Psych affect normal Assessment & Plan Assessment/Plan (1) LORENZO (acute kidney injury): (2) Sepsis: (3) Acute hypoxic respiratory failure: PLAN: Plan 1. Acute hypoxic respiratory failure secondary to influenza A-patient finished Tamiflu, he will remain on aerosol treatments #2 sepsis secondary to acute cystitis from Klebsiella pneumoniae-patient remains on Zosyn at this time, he could be transition to oral antibiotics when he is discharged #3 elevated troponin secondary to demand ischemia-this probably resulted from respiratory failure #4 acute kidney injury-patient's baseline creatinine however is not definitely known, nephrology is participating in his care, labs will be monitored, patient's creatinine has been improving slowly, BMP will be obtained tomorrow It is unknown whether the patient will need short-term skilled care at the time of discharge from the hospital or whether he can go home with home health. Total clinical time spent by myself addressing the patient's medical issues, reviewing all of his data, and collaborating with patient's care team: 35 minutes Charges/Coding Visit Charges Inpatient E&M: 43044 Subs Hosp L2
[2024-11-07] VITALS (10 sets, daily range): BP systolic 138–155; BP diastolic 61–81; PULSE 74–107; RESP 18–20; TEMP 36.2–37.1; O2SAT 94–96; BMI 37.8
[2024-11-07] MEDS: Piperacil/Tazobactam 3.375 GM in 0.9% Normal Saline (50mL MB+) 50 ML IV ×2 (05:09→20:45)
[2024-11-07] MEDS: Nystatin Powder 15gm Bottle 1 APPLIC TOPICAL ×3 (05:09→20:45)
[2024-11-07] MEDS: Ipratropium/Albuterol Sulfate 3 ML AMPUL.NEB INHALATION ×2 (06:58→12:50)
[2024-11-07 08:27] LABS: Anion Gap 12 (5-15); BUN 72 mg/dL (7-18); BUN/Creat Ratio 16.4 RATIO (10-20); Calcium,Total 8.6 mg/dL (8.5-10.1); Chloride 110 mmol/L (98-107); EST Glomerular Filtration Rate 14 mL/min (>60); Est Glom Filt Rate - Afr Amer 17 mL/min (>60); Estimated Creatinine Clearance 16.57 ml/min; Glucose 111 mg/dL (74-106); Potassium 3.4 mmol/L (3.5-5.1); Sodium Level 139 mmol/L (136-145)
[2024-11-07] MEDS: Atorvastatin Calcium 10 MG Tablet PO (08:53)
[2024-11-07] MEDS: Aspirin 81 MG TAB.CHEW PO (08:53)
[2024-11-07] MEDS: Metoprolol Tartrate 25 MG Tablet PO ×2 (08:53→20:45)
[2024-11-07] MEDS: Famotidine 20 MG Tablet PO (08:53)
--- NOTE | 2024-11-07 10:24 | PCM.PN.HOSP ---
Reason for Visit Reason for Visit: Diagnoses Sepsis, unspecified organism (11/01/24) Myocardial infarction type 2 (11/01/24) Influenza due to other identified influenza virus with other respiratory manifestations (11/01/24) Acute respiratory failure with hypoxia (11/01/24) Acute kidney failure, unspecified (11/01/24) Subjective Subjective Patient is a 74-year-old gentleman who was sent from his primary care physician's office to the emergency department with progressive generalized weakness and shortness of breath diagnosed with sepsis secondary to cystitis as well as acute influenza A. Patient also was found to have acute kidney injury admitted to intensive care unit stabilized and transferred to the progressive care unit Objective Data Objective Data Vital Signs: Vital Signs Temp Pulse Resp BP Pulse Ox O2 Del Method O2 Flow Rate 98.1 F 107 H 18 153/69 H 96 Room Air 2 11/07/24 08:31 11/07/24 08:53 11/07/24 08:31 11/07/24 08:53 11/07/24 08:31 11/07/24 10:00 11/05/24 20:12 FiO2 30 11/03/24 04:00 Oxygen Flow Rate (L/min) 2 Oxygen Delivery Method Room Air Weight: 106.2 kg Body Mass Index (BMI) 37.8 Intake & Output: Intake and Output for Last 24 Hours 11/05/24 11/06/24 11/07/24 23:59 23:59 23:59 Intake Total 940 / 1140 650 / 850 300 / 300 Output Total 1925 / 2175 900 / 1500 1150 / 1150 Balance -985 / -1035 -250 / -650 -850 / -850 Lab / Micro Data 11/06/24 05:25 11/07/24 06:53 Labs: Laboratory Results - last 24 hr 11/07/24 06:53: Sodium 139, Potassium 3.4 L, Chloride 110 H, Carbon Dioxide 16.0 L, Anion Gap 12, BUN 72 H, Creatinine 4.40 H, Estim Creat Clear Calc 16.57, Est GFR (MDRD) Af Amer 17 L, Est GFR (MDRD) Non-Af 14 L, BUN/Creatinine Ratio 16.4, Glucose 111 H, Calcium 8.6 Micro: Microbiology 11/01/24 13:00 Blood Culture (Wb) - Right Hand Blood Culture - Final No growth in 5 days. 11/01/24 12:50 Blood Culture (Wb) - Anticubital Left Blood Culture - Final No growth in 5 days. 11/01/24 13:00 Urine, Clean Catch Urine Culture - Final Klebsiella pneumoniae sp pneum 11/01/24 22:30 Stool Enteric Bacteriology - Final 11/01/24 22:30 Stool Clostridioides difficile (PCR) - Final 11/01/24 13:06 Mucosa - Nose SARS-CoV-2, Influenza & RSV (PCR) - Final Influenzae A Physical Exam Narrative GENERAL: cooperative HEENT: Atraumatic; normocephalic EYES; Anicteric, Normal Conjunctiva NECK; supple, normal thyroid, RESPIRATORY: Diminished to auscultation CARDIOVASCULAR: Regular S1 S2, GI: soft, normoactive bowel sounds, : No Renal angle tenderness; EXTREMITIES: No edema, no clubbing, MUSCULOSKELETAL: no muscle wasting NEURO: Awake; no lateralizing signs. SKIN: No Rash PSYCH; Flat affect Assessment & Plan Assessment/Plan (1) LORENZO (acute kidney injury): (2) Sepsis: (3) Acute hypoxic respiratory failure: PLAN: Plan Patient is a 74-year-old gentleman who was sent from his primary care physician's office to the emergency department with progressive generalized weakness and shortness of breath diagnosed with sepsis secondary to cystitis as well as acute influenza A. Patient also was found to have acute kidney injury admitted to intensive care unit stabilized and transferred to the progressive care unit 1. Acute hypoxic respiratory failure ? Secondary to acute influenza A infection admitted to the intensive care unit Accu-Chek before meals and at bedtime with Humalog sliding scale coverage and hypoglycemia protocol. Manage supplemental oxygen as well as Tamiflu transferred to progressive care unit following stabilization of patient's clinical condition 2. Sepsis ? Secondary to combination of acute cystitis as well as influenza patient was manage per protocol 3. Acute cystitis with Klebsiella pneumonia ? Patient has been managed with appropriate antibiotic therapy remains on Zosyn 4. Acute kidney injury superimposed on chronic kidney disease stage III -Suspected to be secondary to ATN from patient's sepsis. Underlying sepsis has been treated consult was placed to nephrology. Response to therapy being monitored with daily BMPs 5. Metabolic acidosis ? Secondary to above no indication for bicarb drip at this point 6. Dyslipidemia Patient is on atorvastatin continue 6. Hypertension ? Blood pressure controlled, home medications continued with dose adjustment as needed 7. Physical deconditioning ? Requested for PT OT eval and social sciences lecturer to assist with discharge planning 8. Mild hypokalemia ? Corrected per protocol 9. DVT prophylaxis Subcu heparin Time spent in the patient's overall evaluation,decision-making process, review of diagnostic data, adjustment of management, discussion with other providers, nursing nursing and ancillary staff involved in patient's care documentation, 52 minutes Charges/Coding Visit Charges Inpatient E&M: 36862 Subs Hosp L2
--- NOTE | 2024-11-07 12:50 | PN.RENAL_ITS ---
Subjective Subjective Patient is resting in bed. Denies any complaints. No overnight events. Objective Data Objective Data Vital Signs: Vital Signs Temp Pulse Resp BP Pulse Ox O2 Del Method O2 Flow Rate 98.1 F 107 H 18 153/69 H 96 Room Air 2 11/07/24 08:31 11/07/24 08:53 11/07/24 08:31 11/07/24 08:53 11/07/24 08:31 11/07/24 10:00 11/05/24 20:12 FiO2 30 11/03/24 04:00 Oxygen Flow Rate (L/min) 2 Oxygen Delivery Method Room Air Weight: 106.2 kg Body Mass Index (BMI) 37.8 Intake & Output: Intake and Output for Last 24 Hours 11/05/24 11/06/24 11/07/24 23:59 23:59 23:59 Intake Total 940 / 1140 650 / 850 500 / 500 Output Total 1925 / 2175 900 / 1500 1800 / 1800 Balance -985 / -1035 -250 / -650 -1300 / -1300 Lab / Micro Data 11/06/24 05:25 11/07/24 06:53 Labs: Laboratory Results - last 24 hr 11/07/24 06:53: Sodium 139, Potassium 3.4 L, Chloride 110 H, Carbon Dioxide 16.0 L, Anion Gap 12, BUN 72 H, Creatinine 4.40 H, Estim Creat Clear Calc 16.57, Est GFR (MDRD) Af Amer 17 L, Est GFR (MDRD) Non-Af 14 L, BUN/Creatinine Ratio 16.4, Glucose 111 H, Calcium 8.6 Micro: Microbiology 11/01/24 13:00 Blood Culture (Wb) - Right Hand Blood Culture - Final No growth in 5 days. 11/01/24 12:50 Blood Culture (Wb) - Anticubital Left Blood Culture - Final No growth in 5 days. 11/01/24 13:00 Urine, Clean Catch Urine Culture - Final Klebsiella pneumoniae sp pneum 11/01/24 22:30 Stool Enteric Bacteriology - Final 11/01/24 22:30 Stool Clostridioides difficile (PCR) - Final 11/01/24 13:06 Mucosa - Nose SARS-CoV-2, Influenza & RSV (PCR) - Final Influenzae A Physical Exam Narrative Alert awake oriented x 3 no obvious distress s1s2 no murmurs Diminished breath sounds bases, no rales or rhonchi noted abdomen soft, nontender no edema winters + Assessment & Plan Assessment/Plan (1) LORENZO (acute kidney injury): PLAN: It appears he has CKD stage IIIb. Over the last several years, creatinine has ranged between 1.6-1.8 as high as 2.0. Last known creatinine is 1.9 from May 2023. It is possible that his baseline is even higher. This admission he came in with creatinine of 2.9 Renal ultrasound without any hydronephrosis Urine analysis with leukocytes, cells, consistent with UTI. Urine culture positive for E. coli Other events including influenza pneumonia, likely superimposed bacterial pneumonia, severe sepsis, lactic acidosis. - Acute hypoxic respiratory failure secondary to influenza A; been treated for sepsis. Blood pressure improved. - Acidosis. Anion gap was elevated at 17. Likely due to a combination of lactic acidosis and acute renal failure. - LORENZO is likely related to ATN in the setting of sepsis. Renal function and urine output is better. SCr 6.19 11/04 (this was peak) --> today SCr 4.40. Bicarb 16, potassium slightly low at 3.4 (supplement ordered). Urine output already 1.8 mL today. No acute indication for TELEVISION RECEIVER ANALYZER. Admission weight around 111 kg, current weight 106 kg. Patient does not need any IV fluids or diuretics. He reports appetite is poor, encouraged increase protein and fluid intake. Will arrange for hospital follow up at time of discharge.
[2024-11-07] MEDS: Potassium Chloride Oral Tablet 20 MEQ PO (14:08)
[2024-11-07] MEDS: Acetaminophen 325 MG Tablet 650 MG PO (20:53)
[2024-11-08 02:45] VITALS: BP 144/73; PULSE 73; RESP 18; TEMP 36.7; O2SAT 95
[2024-11-08] MEDS: Nystatin Powder 15gm Bottle 1 APPLIC TOPICAL (05:54)
[2024-11-08 06:00] VITALS: BMI 37.3
[2024-11-08 06:43] VITALS: PULSE 92; RESP 20; O2SAT 95
[2024-11-08] MEDS: Ipratropium/Albuterol Sulfate 3 ML AMPUL.NEB INHALATION (06:43)
[2024-11-08 08:00] LABS: Hematocrit 34.5 % (40-54); Hemoglobin 11.4 g/dL (13.0-16.5); Mean Corpuscular Hgb 32.9 pg (27.0-32.0); Mean Corpuscular Volume 99.4 fL (80-94); Mean Platelet Vol. 10.6 fl (6.2-12.0); POSITIVE COUNT YES; POSITIVE MORPHOLOGY YES; Platelet Count 224 K/mm3 (150-450); RBC Distribution Width CV 12.6 % (11.6-14.6); RBC Distribution Width SD 45.4 fl (35.1-43.9); Red Blood Count 3.47 M/mm3 (4.6-6.2)
[2024-11-08 08:08] LABS: Differential Indicated MANUAL DIFF
[2024-11-08 08:51] LABS: Anion Gap 11 (5-15); BUN 58 mg/dL (7-18); BUN/Creat Ratio 15.3 RATIO (10-20); Chloride 112 mmol/L (98-107); Creatinine, Serum 3.78 mg/dL (0.70-1.30); EST Glomerular Filtration Rate 17 mL/min (>60); Est Glom Filt Rate - Afr Amer 20 mL/min (>60); Estimated Creatinine Clearance 19.15 ml/min; Glucose 98 mg/dL (74-106); Magnesium 2.2 mg/dL (1.6-2.6); Phosphorus 3.6 mg/dL (2.5-4.9); Potassium 3.5 mmol/L (3.5-5.1); Sodium Level 139 mmol/L (136-145)
[2024-11-08 09:02] VITALS: BP 153/69; PULSE 91; RESP 20; TEMP 36.7; O2SAT 94
[2024-11-08 09:03] VITALS: PULSE 91
[2024-11-08] MEDS: Atorvastatin Calcium 10 MG Tablet PO (09:03)
[2024-11-08] MEDS: Aspirin 81 MG TAB.CHEW PO (09:03)
[2024-11-08] MEDS: Metoprolol Tartrate 25 MG Tablet PO (09:03)
[2024-11-08] MEDS: Famotidine 20 MG Tablet PO (09:03)
[2024-11-08] MEDS: Piperacil/Tazobactam 3.375 GM in 0.9% Normal Saline (50mL MB+) 50 ML IV (09:03)
[2024-11-08] MEDS: Potassium Chloride Oral Tablet 20 MEQ PO (09:03)
--- NOTE | 2024-11-08 09:38 | PCM.PN.HOSP ---
Reason for Visit Reason for Visit: Diagnoses Sepsis, unspecified organism (11/01/24) Myocardial infarction type 2 (11/01/24) Influenza due to other identified influenza virus with other respiratory manifestations (11/01/24) Acute respiratory failure with hypoxia (11/01/24) Acute kidney failure, unspecified (11/01/24) Subjective Subjective Patient seen has been weaned off oxygen plan is for patient to be assessed for possible discharge Objective Data Objective Data Vital Signs: Vital Signs Temp Pulse Resp BP Pulse Ox O2 Del Method O2 Flow Rate 98.0 F 91 20 H 153/69 H 94 Room Air 2 11/08/24 09:02 11/08/24 09:03 11/08/24 09:02 11/08/24 09:02 11/08/24 09:02 11/08/24 09:14 11/05/24 20:12 FiO2 30 11/03/24 04:00 Oxygen Flow Rate (L/min) 2 Oxygen Delivery Method Room Air Weight: 104.8 kg Body Mass Index (BMI) 37.3 Intake & Output: Intake and Output for Last 24 Hours 11/06/24 11/07/24 11/08/24 23:59 23:59 23:59 Intake Total 650 / 850 620 / 620 50 / 50 Output Total 900 / 1500 2350 / 2750 700 / 700 Balance -250 / -650 -1730 / -2130 -650 / -650 Lab / Micro Data 11/08/24 07:29 11/08/24 07:29 Labs: Laboratory Results - last 24 hr 11/08/24 07:29: WBC 9.0, RBC 3.47 L, Hgb 11.4 L, Hct 34.5 L, MCV 99.4 H, MCH 32.9 H, MCHC 33.0, RDW Std Deviation 45.4 H, RDW Coeff of Whitney 12.6, Plt Count 224, MPV 10.6, Neut % (Auto) Not Reportable, Sodium 139, Potassium 3.5, Chloride 112 H, Carbon Dioxide 16.0 L, Anion Gap 11, BUN 58 H, Creatinine 3.78 H, Estim Creat Clear Calc 19.15, Est GFR (MDRD) Af Amer 20 L, Est GFR (MDRD) Non-Af 17 L, BUN/Creatinine Ratio 15.3, Glucose 98, Calcium 9.0, Phosphorus 3.6, Magnesium 2.2 Micro: Microbiology 11/01/24 13:00 Blood Culture (Wb) - Right Hand Blood Culture - Final No growth in 5 days. 11/01/24 12:50 Blood Culture (Wb) - Anticubital Left Blood Culture - Final No growth in 5 days. 11/01/24 13:00 Urine, Clean Catch Urine Culture - Final Klebsiella pneumoniae sp pneum 11/01/24 22:30 Stool Enteric Bacteriology - Final 11/01/24 22:30 Stool Clostridioides difficile (PCR) - Final 11/01/24 13:06 Mucosa - Nose SARS-CoV-2, Influenza & RSV (PCR) - Final Influenzae A Physical Exam Narrative GENERAL: cooperative HEENT: Atraumatic; normocephalic EYES; Anicteric, Normal Conjunctiva NECK; supple, normal thyroid, RESPIRATORY: Diminished to auscultation CARDIOVASCULAR: Regular S1 S2, GI: soft, normoactive bowel sounds, : No Renal angle tenderness; EXTREMITIES: No edema, no clubbing, MUSCULOSKELETAL: no muscle wasting NEURO: Awake; no lateralizing signs. SKIN: No Rash PSYCH; Flat affect Assessment & Plan Assessment/Plan (1) LORENZO (acute kidney injury): (2) Sepsis: (3) Acute hypoxic respiratory failure: PLAN: Plan Patient is a 74-year-old gentleman who was sent from his primary care physician's office to the emergency department with progressive generalized weakness and shortness of breath diagnosed with sepsis secondary to cystitis as well as acute influenza A. Patient also was found to have acute kidney injury admitted to intensive care unit stabilized and transferred to the progressive care unit 1. Acute hypoxic respiratory failure ? Secondary to acute influenza A infection admitted to the intensive care unit Accu-Chek before meals and at bedtime with Humalog sliding scale coverage and hypoglycemia protocol. Manage supplemental oxygen as well as Tamiflu transferred to progressive care unit following stabilization of patient's clinical condition ? 11/2024; patient has been weaned off oxygen 2. Sepsis ? Secondary to combination of acute cystitis as well as influenza patient was manage per protocol 3. Acute cystitis with Klebsiella pneumonia ? Patient has been managed with appropriate antibiotic therapy remains on Zosyn 4. Acute kidney injury superimposed on chronic kidney disease stage III -Suspected to be secondary to ATN from patient's sepsis. Underlying sepsis has been treated consult was placed to nephrology. Response to therapy being monitored with daily BMPs 5. Metabolic acidosis ? Secondary to above no indication for bicarb drip at this point 6. Dyslipidemia Patient is on atorvastatin continue 6. Hypertension ? Blood pressure controlled, home medications continued with dose adjustment as needed 7. Physical deconditioning ? Requested for PT OT eval and social sciences professor to assist with discharge planning 8. Mild hypokalemia ? Corrected per protocol 9. DVT prophylaxis Subcu heparin Time spent in the patient's overall evaluation,decision-making process, review of diagnostic data, adjustment of management, discussion with other providers, nursing nursing and ancillary staff involved in patient's care documentation,40 minutes Charges/Coding Visit Charges Inpatient E&M: 27238 Subs Hosp L2
[2024-11-08 10:10] VITALS: O2SAT 90; O2SAT 97
[2024-11-08 10:11] LABS: Absolute Neutrophil Count 5.9 X10^3/uL (2.0-7.7); Basophil 1 % (0-1); Eosinophil 3 % (0-5); Lymphocyte 20 % (19-41); Metamyelocyte 2 % (0-1); Monocyte 7 % (0-10); Myelocyte 1 % (0-0); Neutrophil-Band 2 % (0-5); Neutrophil-Segmented 64 % (47-70); Total Cells Counted 100 (MANUAL DIFF)
[2024-11-08 10:12] LABS: Platelet Estimate ADEQUATE (ADEQ); Platelet Morphology CLUMPED; Red Cell Morphology NORM C+C NORMAL (NORM C&C)
--- NOTE | 2024-11-08 11:21 | PCM.DC.SUM ---
Providers Date of Admission: 11/01/24 Date of Discharge: 11/08/24 Primary Care Physician: Dr. Bari Francisco MD Consultations 11/02/24 07:55 Consult: Sales Representative [employer] / Pulmonary Medicine Routine Consulting Provider: Intensivists/Pulmonary Med Reason for Consult: Influenza A, resp distress EMERGENT Consult: No Notified: Yes Date Notified: 11/02/24 Time Notified: 07:56 Method of Notification: Verbal 11/02/24 08:27 Consult: Nephrology Routine Consulting Provider: Mary Strauss Reason for Consult: LORENZO EMERGENT Consult: No Notified: Yes Date Notified: 11/02/24 Time Notified: 08:27 Method of Notification: Answering Service Reason For Visit: FLU A INFECTION W/ LORENZO AND DEHYDRATION Diagnosis Discharge Diagnosis (1) LORENZO (acute kidney injury): Status: Acute Code(s): N17.9 - Acute kidney failure, unspecified (2) Sepsis: Status: Acute Code(s): A41.9 - Sepsis, unspecified organism (3) Acute hypoxic respiratory failure: Status: Acute Code(s): J96.01 - Acute respiratory failure with hypoxia Plan Patient is a 74-year-old gentleman who was sent from his primary care physician's office to the emergency department with progressive generalized weakness and shortness of breath diagnosed with sepsis secondary to cystitis as well as acute influenza A. Patient also was found to have acute kidney injury admitted to intensive care unit stabilized and transferred to the progressive care unit 1. Acute hypoxic respiratory failure ? Secondary to acute influenza A infection admitted to the intensive care unit Accu-Chek before meals and at bedtime with Humalog sliding scale coverage and hypoglycemia protocol. Manage supplemental oxygen as well as Tamiflu transferred to progressive care unit following stabilization of patient's clinical condition ? 11/2024; patient has been weaned off oxygen 2. Sepsis ? Secondary to combination of acute cystitis as well as influenza patient was manage per protocol 3. Acute cystitis with Klebsiella pneumonia ? Patient has been managed with appropriate antibiotic therapy remains on Zosyn 4. Acute kidney injury superimposed on chronic kidney disease stage III -Suspected to be secondary to ATN from patient's sepsis. Underlying sepsis has been treated consult was placed to nephrology. Response to therapy being monitored with daily BMPs 5. Metabolic acidosis ? Secondary to above no indication for bicarb drip at this point 6. Dyslipidemia Patient is on atorvastatin continue 6. Hypertension ? Blood pressure controlled, home medications continued with dose adjustment as needed 7. Physical deconditioning ? Requested for PT OT eval and social problems specialist to assist with discharge planning 8. Mild hypokalemia ? Corrected per protocol 9. DVT prophylaxis Subcu heparin Time spent in the patient's overall evaluation,decision-making process, review of diagnostic data, adjustment of management, discussion with other providers, nursing nursing and ancillary staff involved in patient's care documentation,40 minutes Medications at Discharge Home Medications multivitamin 1 tab PO DAILY 04/12/17 aspirin 81 mg chewable tablet 81 mg PO DAILY@0800 ##30 04/14/17 atorvastatin 10 mg tablet 10 mg PO QDAY #90 tabs 01/29/24 metoprolol tartrate 25 mg tablet 25 mg PO BID 11/01/24 acetaminophen 325 mg tablet 650 mg (2 x 325 mg) PO Q6H PRN PRN Pain 1-10 Or Fever>100.7 #0 tabs 11/08/24 potassium chloride 20 mEq tablet,extended release(part/cryst) 20 meq PO DAILYCM #7 tabs 11/08/24 Physical Exam Narrative GENERAL: cooperative HEENT: Atraumatic; normocephalic EYES; Anicteric, Normal Conjunctiva NECK; supple, normal thyroid, RESPIRATORY: Diminished to auscultation CARDIOVASCULAR: Regular S1 S2, GI: soft, normoactive bowel sounds, : No Renal angle tenderness; EXTREMITIES: No edema, no clubbing, MUSCULOSKELETAL: no muscle wasting NEURO: Awake; no lateralizing signs. SKIN: No Rash PSYCH; Flat affect Weight / BMI Weight Weight: 104.8 kg Body Mass Index (BMI) 37.3 ABG / Lab / Microbiology Data 11/08/24 07:29 11/08/24 07:29 Laboratory: Laboratory Results - last 24 hr 11/08/24 07:29: WBC 9.0, RBC 3.47 L, Hgb 11.4 L, Hct 34.5 L, MCV 99.4 H, MCH 32.9 H, MCHC 33.0, RDW Std Deviation 45.4 H, RDW Coeff of Whitney 12.6, Plt Count 224, MPV 10.6, Neut % (Auto) Not Reportable, Absolute Neuts (auto) 5.9, Absolute Lymphs (auto) 1.80, Total Counted 100, Neutrophils % (Manual) 64, Band Neutrophils % 2, Lymphocytes % (Manual) 20, Monocytes % (Manual) 7, Eosinophils % (Manual) 3, Basophils % (Manual) 1, Metamyelocytes % 2 H, Myelocytes % 1 H, Diff Path Review May foll, Platelet Estimate ADEQUATE, Plt Morphology Comment CLUMPED, RBC Morphology NORM C+C, Sodium 139, Potassium 3.5, Chloride 112 H, Carbon Dioxide 16.0 L, Anion Gap 11, BUN 58 H, Creatinine 3.78 H, Estim Creat Clear Calc 19.15, Est GFR (MDRD) Af Amer 20 L, Est GFR (MDRD) Non-Af 17 L, BUN/Creatinine Ratio 15.3, Glucose 98, Calcium 9.0, Phosphorus 3.6, Magnesium 2.2 Microbiology: Microbiology 11/01/24 13:00 Blood Culture (Wb) - Right Hand Blood Culture - Final No growth in 5 days. 11/01/24 12:50 Blood Culture (Wb) - Anticubital Left Blood Culture - Final No growth in 5 days. 11/01/24 13:00 Urine, Clean Catch Urine Culture - Final Klebsiella pneumoniae sp pneum 11/01/24 22:30 Stool Enteric Bacteriology - Final 11/01/24 22:30 Stool Clostridioides difficile (PCR) - Final 11/01/24 13:06 Mucosa - Nose SARS-CoV-2, Influenza & RSV (PCR) - Final Influenzae A D/C Instructions Discharge Diet: No restrictions Discharge Activity: Return to Normal Activity Call your doctor if you observe: Fever of 101 or Higher, Shortness of breath, Fainting spells and Chest pain DC O2, CPAP, BIPAP Needs RN Home O2 Qualification: Home O2 Qualification: Is the patient on home oxygen No 11/08/24 10:10 Home O2 Qualification: AT REST 1- Pulse Ox at rest 97 11/08/24 10:10 Home O2 Qualification: WITH AMBULATION 1- Pulse Ox with ambulation 90 11/08/24 10:10 1- Oxygen Flow Rate with 0 11/08/24 10:10 ambulation PSN CPAP & BiPAP: BiPAP & CPAP Settings per PSN Mode BiPAP 11/05/24 02:03 Bipap Delivery Device Face Mask 11/03/24 03:28 BiPAP Inspiratory Pressure 12 11/03/24 03:28 BiPAP Expiratory Pressure 8 11/03/24 03:28 BiPAP Rate 12 11/03/24 03:28 Fraction of Inspired Oxygen ( 30 11/03/24 04:00 FIO2) Home O2 Discharge instructions: No Meaningful Use Info Meaningful Use Meaningful Use Diagnoses (Choose all that apply): None applicable Ischemic Stroke Statin Dosing Therapy Reference: STATIN DOSE THERAPY REFERENCE: * Patients > 75 years receive moderate or high dose statin therapy. * Patients 75 years or YOUNGER should receive HIGH intensity statin dose unless contraindicated. You will be required to document reason for non-treatment if statin daily dose does not meet guidelines. HIGH DOSE STATIN THERAPY DAILY Atorvastatin > than or = to 40 mg Rosuvastatin > than or = to 20 mg Amlodipine + Atorvastatin > than or = to 2.5/40 mg Ezetimibe + Simvastatin 10/80 mg Simvastatin 80mg Discharge Plan Admission Admit Date/Time: 11/01/24 16:31 Attending Provider: Ryan Ayala Primary Care Provider: Bari Francisco Consulting Providers: Sammy Green; Mary Strauss; Walter Dougherty; Shin Lind; Adrian Ken; Freddy Estrella; Ryan Mazariegos; Hema Whitaker; Wayne Antonio; Lizzie Whitfield; Joe Pablo; Carlos Spears; Kd Fernandez; Vivienne Wyman; Xenia Hernández; Debbie Smiley; Jose Carlos Guevara; Ernst Grey; Samy Vasquez; Gilberto Guzmán; Raquel Kilgore; Gabe Shearer; Ag Perez; Dinesh Dozier; Get Heard; Rod Marlow Discharge Orders/Prescriptions Prescriptions: New acetaminophen 325 mg Tablet 650 mg PO Q6H PRN PRN (Reason: Pain 1-10 Or Fever>100.7) Qty: 0 0RF potassium chloride 20 mEq Tablet,Er Particles/Crystals 20 meq PO DAILYCM Qty: 7 0RF Continued multivitamin 1 EACH tablet 1 tab PO DAILY Patient Comments: vitamin aspirin 81 MG tablet,chewable 81 mg PO DAILY@0800 Qty: 30 0RF Patient Comments: preventative for heart/stroke metoprolol tartrate 25 mg tablet 25 mg PO BID atorvastatin 10 mg tablet 10 mg PO QDAY Qty: 90 3RF Discontinued lisinopril-hydrochlorothiazide 10-12.5 mg tablet 1 tab PO DAILY Qty: 90 naproxen sodium 220 MG tablet 220 mg PO Q12H PRN PRN (Reason: Pain) Patient Comments: joint pain meloxicam 15 mg tablet 15 mg PO DAILY PRN (Reason: pain) Referrals / Follow Up: Mary Strauss MD [Med Staff - Consulting] - Within 2 Weeks Bari Francisco MD [Primary Care Provider] - In 1 Week Disposition Disposition (needs filled in before D/C Order can be placed): Home, Self Care Charges/Coding Visit Charges Inpatient E&M: 11778 Disch Hosp >30min
--- NOTE | 2024-11-08 11:50 | CASEMGMT ---
Patient has order for discharge. RN CM in to discuss needs at discharge. Patient ambulated SBA in hallway. Patient denies needs or help at discharge. Patient had no further questions or concerns.
[2024-11-08 13:20] VITALS: BP 140/63; PULSE 76; RESP 18; TEMP 37.4; O2SAT 96
--- NOTE | 2024-11-08 13:25 | PN.RENAL_ITS ---
Subjective Subjective no new events Objective Data Objective Data Vital Signs: Vital Signs Temp Pulse Resp BP Pulse Ox O2 Del Method O2 Flow Rate 99.3 F H 76 18 140/63 H 96 Room Air 2 11/08/24 13:20 11/08/24 13:20 11/08/24 13:20 11/08/24 13:20 11/08/24 13:20 11/08/24 13:20 11/05/24 20:12 FiO2 30 11/03/24 04:00 Oxygen Flow Rate (L/min) 2 Oxygen Delivery Method Room Air Weight: 104.8 kg Body Mass Index (BMI) 37.3 Intake & Output: Intake and Output for Last 24 Hours 11/06/24 11/07/24 11/08/24 23:59 23:59 23:59 Intake Total 650 / 850 620 / 620 290 / 290 Output Total 900 / 1500 2350 / 2750 700 / 700 Balance -250 / -650 -1730 / -2130 -410 / -410 Lab / Micro Data 11/08/24 07:29 11/08/24 07:29 Labs: Laboratory Results - last 24 hr 11/08/24 07:29: WBC 9.0, RBC 3.47 L, Hgb 11.4 L, Hct 34.5 L, MCV 99.4 H, MCH 32.9 H, MCHC 33.0, RDW Std Deviation 45.4 H, RDW Coeff of Whitney 12.6, Plt Count 224, MPV 10.6, Neut % (Auto) Not Reportable, Absolute Neuts (auto) 5.9, Absolute Lymphs (auto) 1.80, Total Counted 100, Neutrophils % (Manual) 64, Band Neutrophils % 2, Lymphocytes % (Manual) 20, Monocytes % (Manual) 7, Eosinophils % (Manual) 3, Basophils % (Manual) 1, Metamyelocytes % 2 H, Myelocytes % 1 H, Diff Path Review May foll, Platelet Estimate ADEQUATE, Plt Morphology Comment CLUMPED, RBC Morphology NORM C+C, Sodium 139, Potassium 3.5, Chloride 112 H, C arbon Dioxide 16.0 L, Anion Gap 11, BUN 58 H, Creatinine 3.78 H, Estim Creat Clear Calc 19.15, Est GFR (MDRD) Af Amer 20 L, Est GFR (MDRD) Non-Af 17 L, BUN/Creatinine Ratio 15.3, Glucose 98, Calcium 9.0, Phosphorus 3.6, Magnesium 2.2 Micro: Microbiology 11/01/24 13:00 Blood Culture (Wb) - Right Hand Blood Culture - Final No growth in 5 days. 11/01/24 12:50 Blood Culture (Wb) - Anticubital Left Blood Culture - Final No growth in 5 days. 11/01/24 13:00 Urine, Clean Catch Urine Culture - Final Klebsiella pneumoniae sp pneum 11/01/24 22:30 Stool Enteric Bacteriology - Final 11/01/24 22:30 Stool Clostridioides difficile (PCR) - Final 11/01/24 13:06 Mucosa - Nose SARS-CoV-2, Influenza & RSV (PCR) - Final Influenzae A Physical Exam Narrative Alert awake oriented x 3 no obvious distress s1s2 no murmurs Diminished breath sounds bases, no rales or rhonchi noted abdomen soft, nontender no edema winters + Assessment & Plan Assessment/Plan (1) LORENZO (acute kidney injury): PLAN: It appears he has CKD stage IIIb. Over the last several years, creatinine has ranged between 1.6-1.8 as high as 2.0. Last known creatinine is 1.9 from May 2023. It is possible that his baseline is even higher. This admission he came in with creatinine of 2.9 Renal ultrasound without any hydronephrosis Urine analysis with leukocytes, cells, consistent with UTI. Urine culture positive for E. coli Other events including influenza pneumonia, likely superimposed bacterial pneumonia, severe sepsis, lactic acidosis. - Acute hypoxic respiratory failure secondary to influenza A; been treated for sepsis. Blood pressure improved. - Acidosis. better - LORENZO is likely related to ATN in the setting of sepsis.
[2024-11-08 13:52] LABS: Pathologist Review Reviewed
[2024-11-10 09:13] LABS: Pathologist Review Reviewed
== END 2024-11-08 13:51 | disposition home or self-care (01) | DRG 871 ==
LOC: ED 16:26 → PCU 16:59 → ICU 18:59 → PCU 11-05 17:13
PROVIDERS: Internal Medicine; Internal Medicine Critical Care Medicine; Internal Medicine Nephrology; Admitting Provider Hospitalist; Emergency Provider Emergency Medicine; PCP Family Medicine; Visit Provider Internal Medicine
DX: A41.59 Other Gram-negative sepsis (principal); J96.01 Acute respiratory failure with hypoxia; N17.0 Acute kidney failure with tubular necrosis; J15.0 Pneumonia due to Klebsiella pneumoniae; I21.A1 Myocardial infarction type 2; E87.20 Acidosis, unspecified; N18.32 Chronic kidney disease, stage 3b; I12.9 Hypertensive chronic kidney disease with stage 1 through stage 4 chronic kidney disease, or unspecified chronic kidney disease; Z68.38 Body mass index [BMI] 38.0-38.9, adult; E78.5 Hyperlipidemia, unspecified; J10.1 Influenza due to other identified influenza virus with other respiratory manifestations; R65.20 Severe sepsis without septic shock; E87.6 Hypokalemia; M19.90 Unspecified osteoarthritis, unspecified site; E66.812 Obesity, class 2; Z87.891 Personal history of nicotine dependence; R31.9 Hematuria, unspecified; N30.91 Cystitis, unspecified with hematuria; Z79.82 Long term (current) use of aspirin; Z79.899 Other long term (current) drug therapy; B96.20 Unspecified Escherichia coli [E. coli] as the cause of diseases classified elsewhere; B96.1 Klebsiella pneumoniae [K. pneumoniae] as the cause of diseases classified elsewhere; R53.81 Other malaise
CPT/HCPCS: 36415; 36600; 71045; 71046; 76770; 80048; 80053; 80202; 81001; 82803; 83605; 83735; 83880; 84100; 84145; 84484; 85025; 85027; 85379; 85610; 85730; 87040; 87077; 87086; 87088; 87186; 87493; 87506; 87631; 93005; 93306; 93970; 94002; 94003; 94640; 94668; 94762; 97116; 97162; 97166; 97530; 97535; 97802; 97803; 99285; Q9957; A4216; C8929; J1940; J2405

== ENCOUNTER → 2024-11-14 | Outpatient (CLI) | payer MEDICARE, OTHER, SELFPAY ==
[2024-11-14 19:13] LABS: Absolute Lymphocyte Count 1.99 X10^3/uL (0.83-4.51); Absolute Neutrophil Count 9.8 X10^3/uL (2.0-7.7); Basophil# 0.09 X10^3/uL; Basophil% 0.7 % (0-1); Eosinophil# 0.19 X10^3/uL; Eosinophils% 1.4 % (0-5); Hematocrit 37.5 % (40-54); Lymphocyte # 1.99 X10^3/ul (0.83-4.51); Mean Corpuscular Hgb 32.7 pg (27.0-32.0); Mean Corpuscular Volume 102.2 fL (80-94); Mean Platelet Vol. 10.9 fl (6.2-12.0); Monocyte% 8.3 % (0-10); NRBC Flagged by Analyzer 0 % (0-5); Neutrophil # 9.81 X10^3/uL (2.7-7.7); Neutrophil % 73.9 % (47-70); Platelet Count 310 K/mm3 (150-450); RBC Distribution Width CV 12.5 % (11.6-14.6); Red Blood Count 3.67 M/mm3 (4.6-6.2); White Blood Count 13.3 K/mm3 (4.4-11.0)
[2024-11-14 19:59] LABS: Anion Gap 10 (5-15); BUN 51 mg/dL (7-18); BUN/Creat Ratio 13.7 RATIO (10-20); Chloride 109 mmol/L (98-107); Creatinine, Serum 3.72 mg/dL (0.70-1.30); EST Glomerular Filtration Rate 17 mL/min (>60); Est Glom Filt Rate - Afr Amer 21 mL/min (>60); Glucose 105 mg/dL (74-106); Potassium 3.9 mmol/L (3.5-5.1); Sodium Level 135 mmol/L (136-145)
== END | disposition home or self-care (01) ==
LOC: MFPLAB 15:36
PROVIDERS: PCP Family Medicine; Referring Provider Family Medicine; Visit Provider Family Medicine
DX: N17.9 Acute kidney failure, unspecified (principal); R53.83 Other fatigue
CPT/HCPCS: 36415; 80048; 85025

== ENCOUNTER → 2024-12-14 | Outpatient (CLI) | payer MEDICARE, OTHER, SELFPAY ==
[2024-12-14 18:02] LABS: Anion Gap 15 (5-15); BUN 43 mg/dL (4-19); BUN/Creat Ratio 17.2 RATIO (10-20); Calcium,Total 9.3 mg/dL (7.6-11.0); Carbon Dioxide 15.1 mmol/L (21.0-32.0); Chloride 108 mmol/L (98-108); Creatinine, Serum 2.47 mg/dL (0.70-1.20); EST Glomerular Filtration Rate 27 (>60); Glucose 98 mg/dL (70-99); Potassium 4.8 mmol/L (3.3-5.1); Sodium Level 138 mmol/L (133-145)
== END | disposition home or self-care (01) ==
PROVIDERS: PCP Family Medicine; Referring Provider Internal Medicine Nephrology; Visit Provider Internal Medicine Nephrology
DX: N17.9 Acute kidney failure, unspecified (principal)
CPT/HCPCS: 36415; 80048

== ENCOUNTER → 2025-02-09 | Outpatient (CLI) | payer MEDICARE, OTHER, SELFPAY ==
[2025-02-09 15:37] LABS: AST(SGOT) 14 U/L (<=37); Alanine Aminotransfer ALT/SGPT 9 U/L (<=46); Alkaline Phosphatase 76 U/L (40-129); Bilirubin, Direct 0.13 mg/dL (0.00-0.30); Cholesterol 110 mg/dL (<=200); Globulin 2.8 g/dL (2.2-4.2); High Density Lipoprotein 32 mg/dL; Low Density Lipoprotein Calc. 48 mg/dL; Protein, Total 6.8 g/dL (5.9-8.4); Triglycerides 153 mg/dL; Very Low Density Lipoprotein 31 mg/dL (5-40); cholesterol:hdl ratio screen 3.48
== END | disposition home or self-care (01) ==
LOC: MTLAB 13:40
PROVIDERS: PCP Family Medicine; Referring Provider Internal Medicine Cardiovascular Disease; Visit Provider Internal Medicine Cardiovascular Disease
DX: E78.5 Hyperlipidemia, unspecified (principal)
CPT/HCPCS: 36415; 80061; 80076

== ENCOUNTER → 2025-03-01 | Outpatient (CLI) | payer MEDICARE, OTHER, SELFPAY ==
[2025-03-01 15:27] LABS: Mucous, Urine 0 SEEN /hpf (<or=2+)
[2025-03-01 17:59] LABS: Hematocrit 39.6 % (40-54); Mean Corp Hgb Conc 32.8 g/dL (32-36); Mean Corpuscular Hgb 34.2 pg (27.0-32.0); Mean Corpuscular Volume 104.2 fL (80-94); Mean Platelet Vol. 9.8 fl (6.2-12.0); Platelet Count 205 K/mm3 (150-450); RBC Distribution Width CV 12.7 % (11.6-14.6); RBC Distribution Width SD 48.6 fl (35.1-43.9); White Blood Count 9.3 K/mm3 (4.4-11.0)
[2025-03-01 18:16] LABS: Protein:Creat Ratio 168 mg/g CRE (0-200)
[2025-03-01 18:28] LABS: PTHIN 81 pg/mL (11-61)
[2025-03-01 18:45] LABS: Albumin, Serum 4.3 g/dL (3.4-4.8); Anion Gap 12 (5-15); BUN 43 mg/dL (4-19); BUN/Creat Ratio 18.2 RATIO (10-20); Calcium,Total 9.5 mg/dL (7.6-11.0); Carbon Dioxide 19.9 mmol/L (21.0-32.0); Chloride 108 mmol/L (98-108); Creatinine, Serum 2.33 mg/dL (0.70-1.20); EST Glomerular Filtration Rate 28 (>60); Glucose 101 mg/dL (70-99); Magnesium 1.9 mg/dL (1.5-2.2); Phosphorus 3.4 mg/dL (2.7-4.5); Potassium 5.3 mmol/L (3.3-5.1); Sodium Level 140 mmol/L (133-145)
[2025-03-01 21:19] LABS: Color, Urine Yellow (Yellow); Glucose, Dipstick Normal (Normal); Ketone-Dipstick Negative (Negative); Leukocyte Esterase-Dipstick 500 /ul (Negative); Nitrite-Dipstick Negative (Negative); Occult Blood-Urine 10 /ul (Negative); Protein-Dipstick 30 mg/dl (Negative); Specific Gravity, Urine 1.015 (1.002-1.030); Urine Bilirubin Dipstick Negative (Negative); Urine Clarity Sl. Cloudy (Clear); Urine Urobilinogen Normal (Normal)
[2025-03-01 21:43] LABS: Red Blood Cells-Urine 0-5 SEEN /hpf (0-5); White Blood Cells 50-100 SEEN /hpf (0-5)
[2025-03-01 21:44] LABS: Bacteria 1+ /hpf (None Seen); Squamous Epithelial Cells - UA 0-5 SEEN /hpf (0-5); Transitional Epithelial - Ur 0-5 SEEN /hpf (0-5)
== END | disposition home or self-care (01) ==
LOC: MTLAB 15:17
PROVIDERS: PCP Family Medicine; Referring Provider Nurse Practitioner Adult Health; Visit Provider Nurse Practitioner Adult Health
DX: N18.4 Chronic kidney disease, stage 4 (severe) (principal)
CPT/HCPCS: 36415; 80069; 81001; 82306; 82570; 83735; 83970; 84156; 85027

== ENCOUNTER → 2025-08-29 | Outpatient (CLI) | payer MEDICARE, OTHER, SELFPAY ==
[2025-08-29 15:28] LABS: Hematocrit 39.2 % (40-54); Hemoglobin 12.7 g/dL (13.0-16.5); Mean Corp Hgb Conc 32.4 g/dL (32-36); Mean Corpuscular Volume 104.8 fL (80-94); Mean Platelet Vol. 10.0 fl (6.2-12.0); Platelet Count 210 K/mm3 (150-450); RBC Distribution Width CV 12.6 % (11.6-14.6); RBC Distribution Width SD 48.6 fl (35.1-43.9); Red Blood Count 3.74 M/mm3 (4.6-6.2); White Blood Count 7.8 K/mm3 (4.4-11.0)
[2025-08-29 15:53] LABS: PTHIN 122 pg/mL (11-61)
[2025-08-29 15:54] LABS: Albumin, Serum 4.1 g/dL (3.4-4.8); Anion Gap 11 (5-15); BUN 31 mg/dL (4-19); BUN/Creat Ratio 13.6 RATIO (10-20); Calcium,Total 9.1 mg/dL (7.6-11.0); Carbon Dioxide 22.7 mmol/L (21.0-32.0); Chloride 107 mmol/L (98-108); Glucose 102 mg/dL (70-99); Potassium 4.9 mmol/L (3.3-5.1)
[2025-08-29 16:12] LABS: Creatinine, Urine (random) 227.00 mg/dL (39.00-259.00); Protein, Urine (Random) 19.8 mg/dL (0.0-12.0); Protein:Creat Ratio 87 mg/g CRE (0-200)
== END | disposition home or self-care (01) ==
LOC: MTLAB 11:22
PROVIDERS: PCP Family Medicine; Referring Provider Nurse Practitioner Adult Health; Visit Provider Nurse Practitioner Adult Health
DX: N18.4 Chronic kidney disease, stage 4 (severe) (principal)
CPT/HCPCS: 36415; 80069; 82570; 83970; 84156; 85027